=== PATIENT | female | born 1965 | race Caucasian/White ===

== ENCOUNTER 2018-11-16 19:14 | Emergency (ER) | payer MEDICAID ==
[~2018-11-16] VITALS: Ht 152.4 cm; Wt 76.7 kg
--- NOTE | 2018-11-16 19:30 | NUR ---
PT [facility]NA [facility] FOR [facility]. PER EMS PA WAS ON SCENE FOR TRANSPORT BACK TO [facility], CALLED 911 D/T AGITATION. PER EMS, BASELINE BEHAVIOR. PT IN BED 10. WILL CONTINUE TO MONITOR.
--- NOTE | 2018-11-16 19:59 | NUR ---
SPOKE WITH MELLISA FROM [facility] STATED PT HEARS VOICES AND HAS NOT BEEN COMBATIVE UNTIL TODAY.
[2018-11-16] MEDS ORDERED: HALOPERIDOL LACTATE INJ 5 MG/ML VIAL IM ONE ×2 (20:00→21:30)
[2018-11-16] MEDS ORDERED: diphenhydrAMINE HCL 50 MG/ML VIAL IM ONE ×2 (20:00→21:30)
--- NOTE | 2018-11-16 20:04 | NUR ---
PHLEB AT BEDSIDE FOR LAB DRAW
[2018-11-16] MEDS ORDERED: diphenhydrAMINE HCL 50 MG/ML VIAL ONE ×2 (20:07→21:31)
[2018-11-16] MEDS ORDERED: HALOPERIDOL LACTATE INJ 5 MG/ML VIAL ONE ×2 (20:07→21:31)
[2018-11-16 20:16] LABS: EOSINOPHILS % (AUTO) 4.1 % (0.0-6.0); HEMATOCRIT 35 % (33-45); HEMOGLOBIN 11.7 g/dL (11.5-14.8); LYMPHOCYTES # (AUTO) 1.5 /CMM (0.8-4.8); LYMPHOCYTES % (AUTO) 32.9 % (20.0-44.0); MEAN CORPUSCULAR HGB CONC 34 g/dl (31.0-36.0); MEAN CORPUSCULAR VOLUME 90 fL (82-100); MONOCYTES # (AUTO) 0.6 /CMM (0.1-1.30); MONOCYTES % (AUTO) 13.4 % (2.0-12.0); NEUTROPHILS # (AUTO) 2.2 /CMM (1.8-8.9); NEUTROPHILS % (AUTO) 48.6 % (43.0-81.0); PLATELET COUNT (AUTO) 198 /CMM (150-450); RED BLOOD CELL COUNT(AUTO) 3.87 MIL/uL (4.0-5.2); WHITE BLOOD COUNT (AUTO) 4.6 K/uL (4.3-11.0)
[2018-11-16 20:21] LABS: CALCIUM, SERUM 8.7 mg/dL (8.5-10.1); CARBON DIOXIDE 33 mmol/L (21-32); CHLORIDE 100 mmol/L (98-107); CREATININE 3.4 mg/dL (0.6-1.3); GLUCOSE 130 mg/dL (74-106); POTASSIUM 3.3 mmol/L (3.5-5.1); SODIUM SERUM 136 mmol/L (136-145); UREA NITROGEN, BLOOD 17 mg/dL (7-18)
[2018-11-16 20:26] LABS: ACETAMINOPHEN 0 ug/ml (10-30); ALANINE AMINOTRANSFERASE 9 U/L (12-78); ALBUMIN 2.9 g/dL (3.4-5.0); ALCOHOL, BLOOD < 3 mg/dL (0-0); ALKALINE PHOSPHATASE 106 U/L (46-116); ASPARTATE AMINOTRANSFERASE 10 U/L (15-37); BILIRUBIN,DIRECT 0.1 mg/dL (0.0-0.2); BILIRUBIN,TOTAL 0.4 mg/dL (0.2-1.0); SALICYLATE 1.4 mg/dL (2.8-20.0); TOTAL PROTEIN, SERUM 7.7 g/dL (6.4-8.2)
--- NOTE | 2018-11-16 20:45 | NUR ---
PT TAKEN TO RADIOLOGY VIA [facility]
[2018-11-16] MEDS ORDERED: LORAZEPAM INJ 2 MG/ML VIAL IM ONE (21:30)
[2018-11-16] MEDS ORDERED: LORAZEPAM INJ 2 MG/ML VIAL ONE (21:31)
--- NOTE | 2018-11-16 23:13 | NUR ---
PT ON DIALYSIS AND UNABLE TO MAKE URINE. AWARE.
[2018-11-17 00:10] VITALS: BP 147/59
--- NOTE | 2018-11-17 00:36 | NUR ---
PT PICKED UP BY EMS. PT STABLE. REPORT GIVEN TO EMS FOR TRANSPORT.
== END 2018-11-17 01:00 ==
LOC: ER 19:19
DX: E11.22 Type 2 diabetes mellitus with diabetic chronic kidney disease (principal); I12.0 Hypertensive chronic kidney disease with stage 5 chronic kidney disease or end stage renal disease; N18.6 End stage renal disease; D64.9 Anemia, unspecified; F32.9 Major depressive disorder, single episode, unspecified; F41.9 Anxiety disorder, unspecified; Z89.512 Acquired absence of left leg below knee; Z99.2 Dependence on renal dialysis; Z89.511 Acquired absence of right leg below knee
CPT/HCPCS: 36415; 70450; 80048; 80076; 80329; 85025; 96372 ×2; 99285; A4606; G0480 ×2; J1200 ×2; J1630 ×2; J2060; Z7610

== ENCOUNTER 2020-01-31 18:10 | Inpatient (IN) | payer MEDICAID ==
[~2020-01-31] VITALS: Ht 152.4 cm; Wt 59.0 kg
[2020-01-31] MEDS ORDERED: ASPI-1169 PO (18:43)
[2020-01-31] MEDS ORDERED: POLY17PO4 PO (18:43)
[2020-01-31] MEDS ORDERED: IPRA0.2S9 IH (18:43)
[2020-01-31] MEDS ORDERED: FAMO20TA8 PO (18:43)
[2020-01-31] MEDS ORDERED: LEVA0.6320 IH (18:43)
[2020-01-31] MEDS ORDERED: SENN-261 PO (18:43)
[2020-01-31] MEDS ORDERED: FOLI0.4T2 PO (18:43)
[2020-01-31] MEDS ORDERED: ONDA4TAB5 PO (18:43)
[2020-01-31] MEDS ORDERED: LACT10SO PO (18:43)
[2020-01-31] MEDS ORDERED: CALC667T2 PO (18:43)
[2020-01-31] MEDS ORDERED: ACID1TAB12 PO (18:43)
[2020-01-31] MEDS ORDERED: MULT-24 PO (18:43)
[2020-01-31] MEDS ORDERED: RIVA10TA PO (18:43)
[2020-01-31] MEDS ORDERED: ACET-2605 PO (18:43)
[2020-01-31] MEDS ORDERED: ESCI5TAB PO (18:43)
[2020-01-31] MEDS ORDERED: GABA-534 PO (18:43)
[2020-01-31] MEDS ORDERED: ASCO-352 PO (18:43)
[2020-01-31] MEDS ORDERED: MIDO10TA PO (18:43)
[2020-01-31] MEDS ORDERED: INSU100V11 SQ (18:43)
[2020-01-31] MEDS ORDERED: CLON0.1T PO (18:43)
[2020-01-31] MEDS ORDERED: BENZ1TAB7 PO (18:43)
[2020-01-31] MEDS ORDERED: DIPH25CA83 PO (18:43)
[2020-01-31] MEDS ORDERED: CARB15DR EACHEYE (18:43)
[2020-01-31] MEDS ORDERED: HALO0.5T PO (18:43)
[2020-01-31] MEDS ORDERED: ACET-868 PO (18:43)
[2020-01-31] MEDS ORDERED: AMLO5TAB4 PO (18:43)
[2020-01-31] MEDS ORDERED: MEROPENEM 1,000 MG in IV NS 0.9% 100 ML IV ONE (19:00)
[2020-01-31] MEDS ORDERED: VANCOMYCIN 1 GM in IV D5W 250 ML IV ONE (19:00)
--- NOTE | 2020-01-31 19:30 | NUR ---
ani, from [facility], sent by PMD to r/o [facility] Dx [facility] 2 days ago, BS 114, altered. DIALYSIS SHUNT PRESENT AT LEFT ARM. COLOSTOMY BAG PRESENT. ABOVE THE KNEE AMPUTATION OF LOWER EXTREMITIES. PT IS SLOVENIAN-SPEAKING ONLY. NO ACUTE DISTRESS NOTED. RR EVEN AND UNLABORED ON 3L VIA NC. ON MONITOR AND READY FOR EVAL.
[2020-01-31 20:04] LABS: EOSINOPHILS % (AUTO) 1.3 % (0.0-6.0); HEMATOCRIT 30 % (33-45); HEMOGLOBIN 9.4 g/dL (11.5-14.8); LYMPHOCYTES # (AUTO) 1.3 /CMM (0.8-4.8); LYMPHOCYTES % (AUTO) 27.9 % (20.0-44.0); MEAN CORPUSCULAR HGB CONC 32 g/dl (31.0-36.0); MEAN CORPUSCULAR VOLUME 96 fL (82-100); MONOCYTES # (AUTO) 0.3 /CMM (0.1-1.30); MONOCYTES % (AUTO) 6.6 % (2.0-12.0); NEUTROPHILS # (AUTO) 2.9 /CMM (1.8-8.9); NEUTROPHILS % (AUTO) 63.2 % (43.0-81.0); PLATELET COUNT (AUTO) 220 /CMM (150-450); RED BLOOD CELL COUNT(AUTO) 3.12 MIL/uL (4.0-5.2); WHITE BLOOD COUNT (AUTO) 4.6 K/uL (4.3-11.0)
--- NOTE | 2020-01-31 20:10 | NUR ---
PLACED STRAIGHT CATH PER PROTOCOL PER ORDER. NO OUTPUT. WILL LEAVE AND RECHECK
--- NOTE | 2020-01-31 20:13 | NUR ---
IV LINE ESTABLISHED, BLOOD DRAWN AND SENT TO STAT LAB. PT BECOMES AGGRAVATED DURING IV LINE INSERTION AND REQUIRES 2 PEOPLE TO HOLD HER. COMPLETED WITHOUT INCIDENT.
[2020-01-31 20:17] LABS: ALBUMIN 2.9 g/dL (3.4-5.0); BILIRUBIN,DIRECT 0.2 mg/dL (0.0-0.2); BILIRUBIN,TOTAL 0.7 mg/dL (0.2-1.0); POTASSIUM 4.5 mmol/L (3.5-5.1); TOTAL PROTEIN, SERUM 9.4 g/dL (6.4-8.2)
[2020-01-31 20:19] LABS: CREATININE 8.1 mg/dL (0.6-1.3)
[2020-01-31] MEDS ORDERED: VANCOMYCIN 1 GM VIAL ONE (21:52)
[2020-01-31] MEDS: MEROPENEM 1,000 MG in IV NS 0.9% 100 ML IV ONE (22:20)
[2020-01-31] MEDS: Calcium Gluconate 1GM/10ML 4.65 MEQ in IV NS 0.9% 100 ML IV ONE (22:50)
[2020-01-31] MEDS: VANCOMYCIN 1 GM in IV D5W 250 ML IV ONE (22:50)
--- NOTE | 2020-01-31 22:50 | NUR ---
MIDLINE PLACED BY PICC NURSE SMITHA. PT LAYTON WELL. WILL CONT TO MONITOR.
--- NOTE | 2020-01-31 23:30 | NUR ---
REPORT GIVEN TO BELEN VELOZ FOR LOIDA 101-T
--- NOTE | 2020-01-31 23:31 | NUR ---
Received report from Huma in ER.
--- NOTE | 2020-01-31 23:36 | NUR ---
SPOKE WITH DAUGHTER TO GIVE UPDATE. DTR REQUESTS TO BE CONTACTED FOR ANY ISSUES.
--- NOTE | 2020-01-31 23:51 | NUR ---
PT TRANSFERRED TO UNIT [facility]IA [facility]
[2020-01-31 23:55] VITALS: BP 141/31
--- NOTE | 2020-01-31 23:55 | NUR ---
RN NOTE: Pt transferred to unit via gurney accompanied by nurse and emt. Transferred to bed, pictures taken, changed and ensured pt comfortable. Pt A&Ox1, confused, Hong Konger speaking only. On isolation for R/O Covid. On room air, tolerating well. No respiratory distress noted. On tele monitor showing A-fib. Pt has left chest wall pacemaker and left arm dialysis shunt. Has colostomy. Has bilateral AKA. Has IV site on right wrist #20 and right basilic midline #18. Both lines patent and flushing. Dressings c/d/i. Vital signs: BP 141/31, P 51, RR 18, O2 96% RA, T 97.4 axillary. Bed in lowest and locked position, side rails up x2, call light within reach. Will continue to monitor.
[2020-02-01] MEDS ORDERED: AZITHROMYCIN 500 MG in IV D5W 250 ML IV SCH (00:30)
[2020-02-01] MEDS ORDERED: Z GUARD REMEDY 2 OZ OINT TP PRN (00:30)
[2020-02-01] MEDS ORDERED: ONDANSETRON HCL/PF 4 MG/2 ML VIAL IVP PRN (00:30)
[2020-02-01] MEDS ORDERED: ACETAMINOPHEN 325 MG TABLET PO PRN ×2 (00:30)
[2020-02-01] MEDS ORDERED: CLONIDINE HCL 0.1 MG TABLET PO PRN (00:30)
[2020-02-01] MEDS ORDERED: ALBUTEROL SULFATE 8 GM HFA.AER.AD IH PRN (00:30)
[2020-02-01] MEDS ORDERED: IPRATROPIUM NEB FS 0.5 MG/2.5 ML AMPUL.NEB IH PRN (00:30)
[2020-02-01] MEDS: POLYVINYL ALCOHOL 15 ML BOTTLE EACHEYE SCH ×5 (01:00→20:41)
[2020-02-01] MEDS ORDERED: CEFTRIAXONE 1 G VIAL ONE (01:06)
[2020-02-01] MEDS: CEFTRIAXONE 1 G in IV D5W 50 ML IV SCH (01:08)
[2020-02-01] MEDS ORDERED: AZITHROMYCIN 500 MG VIAL ONE (01:17)
[2020-02-01 03:27] LABS: C-REACTIVE PROTEIN 27.9 mg/dL (0.0-0.9)
[2020-02-01 04:00] VITALS: BP 97/56
--- NOTE | 2020-02-01 06:48 | NUR ---
RN CLOSING NOTE: Pt resting in bed, A&Ox1 Israeli speaking. On isolation for r/o Covid. On 2L/min NC tolerating well. No respiratory distress noted. No acute changes noted during shift. On tele monitor showing A-fib. Has pacemaker on left chest wall. Colostomy intact and emptied. Has dialysis shunt on left arm. IV site on right wrist #20 and right basilic midline #18 patent and flushed. Dressings c/d/i. All meds administered as ordered. Pt kept clean and dry. Pt yelling for Harriet throughout shift. Frequent reorientation provided. Safety measures in place. Bed in lowest and locked position, side rails up x2, call light within reach. Will endorse to AM nurse for MAYCOL.
--- NOTE | 2020-02-01 07:10 | NUR ---
RN opening note: Received pt. resting in bed, awake and confused. Surinamese speaking only. On isolation for r/o Covid. On 2L/min NC tolerating well. No respiratory distress noted. On tele monitor showing junctional bradycardia. Has pacemaker on left chest wall. Colostomy intact and area clean. Has dialysis shunt on left arm. IV site on right wrist #20 and right basilic midline #18 patent and flushed. Dressings c/d/i. No pain noted on patient. Call light in reach. Bed locked, low and at semi-tariq's position. Safety ensured and observed. Will continue to monitor.
[2020-02-01 08:00] VITALS: BP_SYST 104; BP_DIAS 31; BP_DIAS 58
[2020-02-01] MEDS: CALCIUM ACETATE 667 MG TABLET PO SCH ×3 (08:00→18:09)
[2020-02-01] MEDS: FAMOTIDINE (20 MG) 20 MG TABLET PO SCH (08:00)
[2020-02-01] MEDS: FOLIC ACID 1 MG TABLET PO SCH (09:08)
[2020-02-01] MEDS: SENNOSIDES 8.6 MG TABLET PO SCH ×2 (09:08→16:06)
[2020-02-01] MEDS: ASCORBIC ACID 500 MG TABLET PO SCH (09:08)
[2020-02-01] MEDS: ASPIRIN 81 MG TAB.CHEW PO SCH (09:08)
[2020-02-01] MEDS: ESCITALOPRAM OXALATE (10 MG) 10 MG TABLET PO SCH (09:08)
[2020-02-01] MEDS: HALOPERIDOL 1 MG TABLET PO SCH ×2 (09:09→20:07)
[2020-02-01] MEDS: BENZTROPINE MESYLATE (1 MG) 1 MG TABLET PO SCH (09:09)
[2020-02-01] MEDS: GABAPENTIN 300 MG CAPSULE PO SCH (09:09)
[2020-02-01] MEDS: ACIDOPHILUS/BULGARICUS 1 EACH TAB.CHEW PO SCH (09:09)
[2020-02-01] MEDS: MULTIVITAMINS,THERAGRAN 1 UDTAB TABLET PO SCH (09:09)
[2020-02-01] MEDS: RIVAROXABAN 10 MG TABLET PO SCH (09:44)
[2020-02-01 09:48] LABS: THYROID STIMULATING HORMONE 0.556 uIU/mL (0.358-3.74)
[2020-02-01 12:00] VITALS: BP_SYST 104; BP_SYST 105; BP_SYST 110; BP_DIAS 43; BP_DIAS 50; BP_DIAS 58
[2020-02-01] MEDS ORDERED: IPRATROPIUM BROMIDE 14 GM INHALER (or 12.9 GM) IH PRN (13:00)
[2020-02-01 16:00] VITALS: BP 98/56
--- NOTE | 2020-02-01 18:35 | NUR ---
RN closing note: Patient resting in bed, awake and confused. Malawian speaking only. On isolation for r/o Covid, results still pending. On 2L/min NC tolerating well. No respiratory distress noted. On tele monitor showing junctional bradycardia and sinus rhythm noted on shift. Has pacemaker on left chest wall. Colostomy intact and area clean. Has dialysis shunt on left arm, dialysis done. No output noted, cleaned only. IV site on right wrist #20 and right basilic midline #18 patent and flushed. Dressings c/d/i. No pain noted on patient. Call light in reach. Bed locked, low and at semi-tariq's position. Safety ensured and observed. Patient with continuos episodes of asking for phone noted. Agitated behavior is sometimes observed. Frequent reorientation of done in sammarinese with the help of qualified staff. Patient's personal phone at bedside, however battery is empty as she did not come with her filler mixer. Explanation given and room telephone made available for patient to make calls and receive calls but patient continues to refuse attempts of explanation. Percent of meals consumed; Breakfast: 25%, Lunch: 50%, Dinner: Refused. Will endorse to oncoming shift for MAYCOL.
--- NOTE | 2020-02-01 19:10 | NUR ---
RN NOTE RECEIVED PATIENT IN BED, RESTING WITH HOB ELEVATED. A&O X1, CONFUSED. ON O2 2L VIA NC. VERBALLY RESPONSIVE, KAZAKH SPEAKING ONLY. UNCOOPERATIVE. HD CATH ON LEFT UPPER ARM. IV SITES OF RIGHT WRIST AND RIGHT ARM, PATENT. PATIENT IS AKA. BILATERAL STUMPS CLEAN AND DRY. PATIENT HAS OSTOMY ON LEFT LOWER ABDOMEN. STOOL IS BROWN/YELLOW IN COLOR, LIQUID CONSISTENCY. CALL LIGHT IS WITHIN EASY REACH. WILL CONTINUE TO MONITOR.
[2020-02-01 20:00] VITALS: BP 150/73
[2020-02-01] MEDS ORDERED: AZITHROMYCIN 250 MG TABLET PO SCH (21:00)
[2020-02-01] MEDS: AMLODIPINE BESYLATE 5 MG TABLET PO SCH (21:27)
[2020-02-02] VITALS: BP 126/50
[2020-02-02] MEDS: CEFTRIAXONE 1 G in IV D5W 50 ML IV SCH (00:19)
[2020-02-02 04:00] VITALS: BP 142/53
--- NOTE | 2020-02-02 06:54 | NUR ---
RN NOTE PATIENT REMAINED STABLE THROUGHOUT THE NIGHT. NO SIGNIFICANT CHANGES NOTED. ALL DUE MEDS GIVEN ORDERED AND TOLERATED WELL. PATIENT WAS KEPT CLEAN, DRY, AND COMFORTABLE. WILL ENDORSE TO AM SHIFT RN FOR CONTINUATION OF CARE.
[2020-02-02 07:12] LABS: BASOPHILS % (AUTO) 0.8 % (0.0-2.0); EOSINOPHILS % (AUTO) 2.1 % (0.0-6.0); HEMATOCRIT 28 % (33-45); HEMOGLOBIN 8.8 g/dL (11.5-14.8); LYMPHOCYTES # (AUTO) 0.8 /CMM (0.8-4.8); LYMPHOCYTES % (AUTO) 20.2 % (20.0-44.0); MEAN CORPUSCULAR HGB CONC 31 g/dl (31.0-36.0); MEAN CORPUSCULAR VOLUME 97 fL (82-100); MONOCYTES # (AUTO) 0.4 /CMM (0.1-1.30); MONOCYTES % (AUTO) 11.5 % (2.0-12.0); NEUTROPHILS # (AUTO) 2.5 /CMM (1.8-8.9); NEUTROPHILS % (AUTO) 65.4 % (43.0-81.0); PLATELET COUNT (AUTO) 199 /CMM (150-450); RED BLOOD CELL COUNT(AUTO) 2.94 MIL/uL (4.0-5.2); WHITE BLOOD COUNT (AUTO) 3.8 K/uL (4.3-11.0)
[2020-02-02 07:55] LABS: ALBUMIN 2.4 g/dL (3.4-5.0); BILIRUBIN,TOTAL 0.5 mg/dL (0.2-1.0); MAGNESIUM 2.3 mg/dL (1.8-2.4); PHOSPHORUS 4.6 mg/dL (2.5-4.9); POTASSIUM 4.9 mmol/L (3.5-5.1); TOTAL PROTEIN, SERUM 7.8 g/dL (6.4-8.2)
[2020-02-02 08:00] VITALS: BP 98/60
--- NOTE | 2020-02-02 08:00 | NUR ---
RN OPENING NOTE RECEIVED PT IN BED AWAKE, ALERT AND ORIENTED X1. THAI SPEAKING ONLY. NO CARDIAC OR RESP DISTRESS NOTED. ON TELE MONITOR SHOWING SINUS BRADYCARDIA WITH AFIB, NOTED HR OF 63. NO SOB NOTED. BREATHING EVEN AND UNLABORED. ON 2L OF O2 VIA NC SATURATING WELL. IV ACCESS NOTED ON R WRIST G20. AND R BASILIC MIDLINE G18. NO S/S OF INFECTION OR INFILTRATION NOTED. IV ACCESS INTACT AND PATENT AND FLUSHING WELL. HEMODIALYSIS CATH NOTED ON L ARM. NO BLEEDING NOTED. + FOR BRUIT AND THRILL. PT NOTED WITH ABOVE THE KNEE AMPUTATION STUMPS ARE CLEAN AND DRY. COLOSTOMY NOTED ON L LOWER ABD. NO S/S OF INFECTION NOTED ON STOMA SITE. SAFETY PRECAUTIONS IN PLACE. BED LOCKED AND IN LOW POSITION. SIDE RAILS UP. BED ALARM ON. WILL CONT TO MONITOR.
[2020-02-02] MEDS: SENNOSIDES 8.6 MG TABLET PO SCH ×2 (08:41→17:09)
[2020-02-02] MEDS: GABAPENTIN 300 MG CAPSULE PO SCH (08:41)
[2020-02-02] MEDS: FAMOTIDINE (20 MG) 20 MG TABLET PO SCH (08:41)
[2020-02-02] MEDS: BENZTROPINE MESYLATE (1 MG) 1 MG TABLET PO SCH (08:42)
[2020-02-02] MEDS: HALOPERIDOL 1 MG TABLET PO SCH ×2 (08:42→20:16)
[2020-02-02] MEDS: ASPIRIN 81 MG TAB.CHEW PO SCH (08:42)
[2020-02-02] MEDS: ASCORBIC ACID 500 MG TABLET PO SCH (08:42)
[2020-02-02] MEDS: ACIDOPHILUS/BULGARICUS 1 EACH TAB.CHEW PO SCH (08:42)
[2020-02-02] MEDS: ESCITALOPRAM OXALATE (10 MG) 10 MG TABLET PO SCH (08:43)
[2020-02-02] MEDS: MULTIVITAMINS,THERAGRAN 1 UDTAB TABLET PO SCH (08:43)
[2020-02-02] MEDS: FOLIC ACID 1 MG TABLET PO SCH (08:43)
[2020-02-02] MEDS: CALCIUM ACETATE 667 MG TABLET PO SCH ×3 (08:46→17:08)
[2020-02-02] MEDS: POLYVINYL ALCOHOL 15 ML BOTTLE EACHEYE SCH ×4 (08:47→20:17)
[2020-02-02] MEDS: RIVAROXABAN 10 MG TABLET PO SCH (08:48)
[2020-02-02 09:24] LABS: THYROID STIMULATING HORMONE 0.518 uIU/mL (0.358-3.74)
--- NOTE | 2020-02-02 10:45 | NUR ---
COVID POSITIVE DR ARRIAZA MADE AWARE OF COVID POSITIVE RESULTS. PER DR ARRIAZA TO LET SANDOVAL FROM INFECTIOUS DISEASE KNOW
--- NOTE | 2020-02-02 11:00 | NUR ---
SANDOVAL NICK TRAINS SERVICE CONDUCTOR MADE AWARE OF COVID RESULTS FOR PT. NO ORDERS GIVEN AT THIS TIME.
[2020-02-02 12:00] VITALS: BP 101/72
[2020-02-02 16:00] VITALS: BP 111/72
--- NOTE | 2020-02-02 18:00 | NUR ---
TEMP CHECK PT AFEBRILE THROUGHOUT THE SHIFT. TEMP NOTED TO BE AT 98.3. NO COUGHING OR CONGESTION NOTED. STABLE O2 SAT ON 2L OF O2 AT 98%.
--- NOTE | 2020-02-02 18:30 | NUR ---
SEEN BY SANDOVAL WEB PRESS OPERATOR ASSISTANT PT WAS SEEN BY SANDOVAL (ID) TODAY.
--- NOTE | 2020-02-02 19:20 | NUR ---
RN NOTE RECEIVED PATIENT IN BED. DX OF POSITIVE COVID-19. A&O X1, CONFUSED. ON O2 2L VIA NC. VERBALLY RESPONSIVE, ARABIC SPEAKING ONLY. HD CATH ON LEFT UPPER ARM. IV SITES OF RIGHT WRIST AND RIGHT ARM, PATENT. PATIENT IS AKA. BILATERAL STUMPS CLEAN AND DRY. PATIENT HAS OSTOMY ON LEFT LOWER ABDOMEN. CALL LIGHT IS WITHIN EASY REACH. WILL CONTINUE TO MONITOR.
--- NOTE | 2020-02-02 19:29 | NUR ---
RN CLOSING NOTE PT IN BED AWAKE, ALERT AND ORIENTED X1. CITIZEN OF [place] SPEAKING ONLY. NO CARDIAC OR RESP DISTRESS NOTED. ON TELE MONITOR SHOWING SINUS BRADYCARDIA WITH AFIB. BREATHING EVEN AND UNLABORED. ON 2L OF O2 VIA NC SATURATING WELL AT 98%. IV ACCESS NOTED ON R WRIST G20. AND R BASILIC MIDLINE G18. NO S/S OF INFECTION OR INFILTRATION NOTED. IV ACCESS INTACT AND PATENT AND FLUSHING WELL. HEMODIALYSIS CATH NOTED ON L ARM. NO BLEEDING NOTED. + FOR BRUIT AND THRILL. COLOSTOMY NOTED ON L LOWER ABD. NO S/S OF INFECTION NOTED ON STOMA SITE. COLOSTOMY DRESSING CHANGED. INTACT. KEPT CLEAN AND DRY. SAFETY PRECAUTIONS IN PLACE. BED LOCKED AND IN LOW POSITION. SIDE RAILS UP. BED ALARM ON. WILL ENDORSE TO NEXT SHIFT
[2020-02-02] MEDS ORDERED: HYDROXYCHLOROQUINE 200 MG TABLET PO SCH ×2 (19:30→19:33)
[2020-02-02 20:00] VITALS: BP_SYST 129; BP_DIAS 39; BP_DIAS 59
[2020-02-02] MEDS: HYDROXYCHLOROQUINE 200 MG TABLET PO SCH (20:16)
[2020-02-02] MEDS: ACETAMINOPHEN ES 500 MG TABLET PO PRN (21:11)
[2020-02-02] MEDS: AMLODIPINE BESYLATE 5 MG TABLET PO SCH (21:11)
[2020-02-03] VITALS: BP 98/43
[2020-02-03 04:00] VITALS: BP 102/56
--- NOTE | 2020-02-03 07:00 | NUR ---
ENVIRONMENTAL SERVICES COORDINATOR PATIENT RECIVED IN BED. A/O X1 CONFUSED. ON O2 2L VIA NC. RESPONSIVE IN SWEDISH SPEAKING ONLY. HD CATH LEFT UPPERA . IV SITE OF RIGHT WRIST AND RIGHT ARM. PATIENT AKA BILATERAL STUMPS CLEAN AND DRY. OSTOMEY LOWER LEFT ABDOMEN. BED LOCKED AND LOWEST POSITION CALL LIGHT WITH IN REACH ALL SAFETY MEASURE IMPLENTED PER HOSPITAL POLICY. 2 X SIDE RAILS UP
--- NOTE | 2020-02-03 07:05 | NUR ---
RN NOTE PATIENT REMAINED STABLE THROUGHOUT THE NIGHT. COVID POSITIVE. ALL DUE MEDS GIVEN ORDERED AND TOLERATED WELL. PATIENT WAS KEPT CLEAN, DRY, AND COMFORTABLE. WILL ENDORSE TO AM SHIFT RN FOR CONTINUATION OF CARE.
[2020-02-03 07:43] LABS: BASOPHILS % (AUTO) 0.9 % (0.0-2.0); EOSINOPHILS % (AUTO) 2.4 % (0.0-6.0); HEMATOCRIT 25 % (33-45); HEMOGLOBIN 8.1 g/dL (11.5-14.8); LYMPHOCYTES # (AUTO) 1.1 /CMM (0.8-4.8); LYMPHOCYTES % (AUTO) 29.1 % (20.0-44.0); MEAN CORPUSCULAR HGB CONC 32 g/dl (31.0-36.0); MEAN CORPUSCULAR VOLUME 93 fL (82-100); MONOCYTES # (AUTO) 0.4 /CMM (0.1-1.30); MONOCYTES % (AUTO) 9.6 % (2.0-12.0); NEUTROPHILS # (AUTO) 2.2 /CMM (1.8-8.9); PLATELET COUNT (AUTO) 190 /CMM (150-450); RED BLOOD CELL COUNT(AUTO) 2.72 MIL/uL (4.0-5.2); WHITE BLOOD COUNT (AUTO) 3.7 K/uL (4.3-11.0)
[2020-02-03 07:50] LABS: CALCIUM, SERUM 7.4 mg/dL (8.5-10.1); MAGNESIUM 2.2 mg/dL (1.8-2.4); PHOSPHORUS 3.8 mg/dL (2.5-4.9); POTASSIUM 4.6 mmol/L (3.5-5.1)
[2020-02-03 07:52] LABS: CREATININE 9.2 mg/dL (0.6-1.3)
[2020-02-03 08:00] VITALS: BP 125/65
[2020-02-03] MEDS: CALCIUM ACETATE 667 MG TABLET PO SCH ×3 (09:43→17:05)
[2020-02-03] MEDS: ESCITALOPRAM OXALATE (10 MG) 10 MG TABLET PO SCH (09:44)
[2020-02-03] MEDS: ACIDOPHILUS/BULGARICUS 1 EACH TAB.CHEW PO SCH (09:44)
[2020-02-03] MEDS: SENNOSIDES 8.6 MG TABLET PO SCH ×2 (09:44→17:05)
[2020-02-03] MEDS: ASPIRIN 81 MG TAB.CHEW PO SCH (09:44)
[2020-02-03] MEDS: FOLIC ACID 1 MG TABLET PO SCH (09:44)
[2020-02-03] MEDS: FAMOTIDINE (20 MG) 20 MG TABLET PO SCH (09:44)
[2020-02-03] MEDS: HALOPERIDOL 1 MG TABLET PO SCH ×2 (09:45→20:24)
[2020-02-03] MEDS: ASCORBIC ACID 500 MG TABLET PO SCH (09:45)
[2020-02-03] MEDS: MULTIVITAMINS,THERAGRAN 1 UDTAB TABLET PO SCH (09:45)
[2020-02-03] MEDS: HYDROXYCHLOROQUINE 200 MG TABLET PO SCH ×2 (09:45→20:24)
[2020-02-03] MEDS: GABAPENTIN 300 MG CAPSULE PO SCH (09:45)
[2020-02-03] MEDS: BENZTROPINE MESYLATE (1 MG) 1 MG TABLET PO SCH (09:45)
[2020-02-03] MEDS: RIVAROXABAN 10 MG TABLET PO SCH (09:46)
[2020-02-03] MEDS: POLYVINYL ALCOHOL 15 ML BOTTLE EACHEYE SCH ×4 (09:47→20:55)
[2020-02-03 12:00] VITALS: BP 104/42
[2020-02-03 16:00] VITALS: BP_SYST 111; BP_SYST 115; BP_DIAS 40; BP_DIAS 54
[2020-02-03] MEDS ORDERED: AZITHROMYCIN 250 MG TABLET PO SCH (18:30)
--- NOTE | 2020-02-03 18:52 | NUR ---
FAMILY LAW LEGAL ASSISTANT CLOSING PATIENT IN STABLE CONDITION AT THIS TIME. NO ACUTE DISTRESS. TURN AND REPOSITION Q2H. BED LOCKED LOWEST POSITION CALL LIGHT WITH IN REACH ALL SAFETY MEASURE IMPLEMENTED PER HOSPITAL POLICY. ENDORSED TO ON COMING SHIFT
--- NOTE | 2020-02-03 19:05 | NUR ---
CLINICIAN ONCOLOGY opening note: Received pt. resting in bed, awake and confused. Cameroonian speaking only. On isolation for r/o Covid. On 2L/min NC tolerating well. No respiratory distress noted. On tele monitor showing junctional bradycardia. Has pacemaker on left chest wall. Colostomy bag intact and area clean. Has dialysis shunt on left arm. IV site on right wrist #20 and right basilic midline #18 patent and flushed. Dressings c/d/i. No pain noted on patient. Call light in reach. Bed locked, low and at semi-tariq's position. Safety ensured and observed. Will continue to monitor.
[2020-02-03 20:00] VITALS: BP 129/41
[2020-02-03] MEDS: AMLODIPINE BESYLATE 5 MG TABLET PO SCH (21:25)
[2020-02-04] VITALS (7 sets, daily range): BP systolic 92–129; BP diastolic 41–65
--- NOTE | 2020-02-04 06:58 | NUR ---
RN CLOSING NOTES PT IS SLEEPING NO SIGN AND SYMPTOMS OF RESPIRATORY DISTRESS 02 SAT 100% VIA RA, NO SIGNIFICANT CHANGES ON CONDITION NOTED STILL ON TELE WITH READING FUNCTIONAL NATALIE 50'S, COLOSTOMY BAG EMPTIED, DROPLET ISOLATION MAINTAINED AND OBSERVED COVID 19 (+) SAFETY MEASURE MAINTAINED, BED ON LOWEST POSITION AND LOCKED CALL LIGHT WITHIN REACH, SIDE RAILS UP X3 ALL NEEDS ATTENDED WILL ENDORSED TO AM SHIFT RN
[2020-02-04 07:01] LABS: BASOPHILS % (AUTO) 1.1 % (0.0-2.0); EOSINOPHILS % (AUTO) 5.2 % (0.0-6.0); HEMATOCRIT 28 % (33-45); HEMOGLOBIN 8.8 g/dL (11.5-14.8); LYMPHOCYTES % (AUTO) 32.2 % (20.0-44.0); MEAN CORPUSCULAR HGB CONC 32 g/dl (31.0-36.0); MEAN CORPUSCULAR VOLUME 94 fL (82-100); MONOCYTES # (AUTO) 0.4 /CMM (0.1-1.30); MONOCYTES % (AUTO) 13.3 % (2.0-12.0); NEUTROPHILS # (AUTO) 1.5 /CMM (1.8-8.9); NEUTROPHILS % (AUTO) 48.2 % (43.0-81.0); PLATELET COUNT (AUTO) 203 /CMM (150-450); RED BLOOD CELL COUNT(AUTO) 2.96 MIL/uL (4.0-5.2); WHITE BLOOD COUNT (AUTO) 3.2 K/uL (4.3-11.0)
[2020-02-04 07:17] LABS: CALCIUM, SERUM 7.1 mg/dL (8.5-10.1); MAGNESIUM 2.3 mg/dL (1.8-2.4); PHOSPHORUS 4.7 mg/dL (2.5-4.9); POTASSIUM 5.2 mmol/L (3.5-5.1)
[2020-02-04 07:22] LABS: CREATININE 10.3 mg/dL (0.6-1.3)
--- NOTE | 2020-02-04 08:00 | NUR ---
LOOM DOFFER NOTE PATIENT RECEIVED IN BED. A/O X1 CONFUSED. ON O2 2L VIA NC. RESPONSIVE IN DANISH SPEAKING ONLY. HD CATH LEFT UPPER ARM . IV SITE OF RIGHT WRIST AND RIGHT ARM. PATIENT AKA BILATERAL STUMPS CLEAN AND DRY. OSTOMY LOWER LEFT ABDOMEN WITH SOFT AND LIQUID STOOL NOTED BED LOCKED AND LOWEST POSITION CALL LIGHT WITH IN REACH ALL SAFETY MEASURE IMPLANTED PER HOSPITAL POLICY. 2 X SIDE RAILS UP LT UPPER ARM WITH AV FISTULA WITH DRESSING IN PLACE, WILL CONT TO MONITOR
[2020-02-04] MEDS: SENNOSIDES 8.6 MG TABLET PO SCH ×2 (08:17→16:25)
[2020-02-04] MEDS: BENZTROPINE MESYLATE (1 MG) 1 MG TABLET PO SCH (08:19)
[2020-02-04] MEDS: HYDROXYCHLOROQUINE 200 MG TABLET PO SCH ×2 (08:19→20:02)
[2020-02-04] MEDS: FAMOTIDINE (20 MG) 20 MG TABLET PO SCH (08:19)
[2020-02-04] MEDS: ASCORBIC ACID 500 MG TABLET PO SCH (08:19)
[2020-02-04] MEDS: GABAPENTIN 300 MG CAPSULE PO SCH (08:19)
[2020-02-04] MEDS: ESCITALOPRAM OXALATE (10 MG) 10 MG TABLET PO SCH (08:19)
[2020-02-04] MEDS: FOLIC ACID 1 MG TABLET PO SCH (08:19)
[2020-02-04] MEDS: ACIDOPHILUS/BULGARICUS 1 EACH TAB.CHEW PO SCH (08:19)
[2020-02-04] MEDS: MULTIVITAMINS,THERAGRAN 1 UDTAB TABLET PO SCH (08:19)
[2020-02-04] MEDS: ASPIRIN 81 MG TAB.CHEW PO SCH (08:21)
[2020-02-04] MEDS: HALOPERIDOL 1 MG TABLET PO SCH ×2 (08:21→20:03)
[2020-02-04] MEDS: CALCIUM ACETATE 667 MG TABLET PO SCH ×3 (08:21→17:01)
[2020-02-04] MEDS: RIVAROXABAN 10 MG TABLET PO SCH (08:22)
[2020-02-04] MEDS: POLYVINYL ALCOHOL 15 ML BOTTLE EACHEYE SCH ×4 (09:34→20:02)
--- NOTE | 2020-02-04 11:30 | NUR ---
DIE SINKER APPRENTICE NOTE CHECK COLOSTOMY BAG , ABLE TO MAKE BM , 150 ML . ALL NEEDS ATTENDED WILL MONITOR,
--- NOTE | 2020-02-04 15:59 | NUR ---
HEMMING AND TACKING MACHINE OPERATOR NOTE ROUNDS MADE KEEP CLEAN DRY , TURN REPOSITION , NOT IN DISTRESS
--- NOTE | 2020-02-04 18:56 | NUR ---
CASTING TESTER NOTE FED BY NURSING STAFF, COLOSTOMY CARE DONE, TURN REPOSITION, WILL CONT TO MONITOR
--- NOTE | 2020-02-04 19:30 | NUR ---
RN NOTES, PATIENT SLEEPING BREATHING EVEN AND UNLABORED, NO SOB/ACUTE RESPIRATORY DISTRESS , 02 SAT 99-100% VIA NC 2 LPM, NS NATALIE AT TIMES, JUNCTIONAL, HR JUMPS FROM 40S TO 50S, COLOSTOMY BAG WITH SMALL AMOUNT OF STOOL AT THIS TIME, ON ISOLATION COVID 19 (+) SAFETY MEASURE MAINTAINED, BED LOCKED AND LOWEST POSITION, CALL LIGHT WITHIN REACH, SIDE RAILS UP X3 ALL NEEDS ATTENDED, WILL CONTINUE TO MONITOR CLOSELY,
[2020-02-04] MEDS: AMLODIPINE BESYLATE 5 MG TABLET PO SCH (21:36)
[2020-02-05] VITALS (8 sets, daily range): BP systolic 92–137; BP diastolic 36–48
--- NOTE | 2020-02-05 07:08 | NUR ---
RN CLOSING NOTES, PATIENT AWAKE AT THIS TIME, NO SOB/ACUTE RESPIRATORY DISTRESS , OO2 SAT 99-100% VIA NC 2 LPM, NS NATALIE AND JUNCTIONAL AT TIMES, HR JUMPS FROM 40S TO 50S, ON ISOLATION COVID 19 (+) SAFETY MEASURE MAINTAINED, BED LOCKED AND LOWEST POSITION, CALL LIGHT WITHIN REACH, SIDE RAILS UP X3 ALL NEEDS ATTENDED, NO SIGNIFICANT CHANGE IN CONDITION DURING THE NIGHT, WILL ENDORSE CONTINUITY OF CARE TO ONCOMING NURSE.
--- NOTE | 2020-02-05 07:30 | NUR ---
BILLING SUPERVISOR OPENING NOTE RECEIVED REPORT FROM [facility] SHIFT NURSE. PATIENT AWAKE IN BED, ALERT AND ORIENTED X 1, POLISH SPEAKING, ON 02 VIA NC 2L/MIN, SATURATING 99%, NO SIGNS OF RESPIRATORY DISTRESS NOTED, RESPIRATIONS EVEN AND UNLABORED. SINUS NATALIE ON TELE MONITOR HR 55. RIGHT UPPER ARM MIDLINE BUT NOT INTACT, LEAKING WITH NS FLUSH. CHARGE NURSE NOTIFIED, ADRIENNEMA NOTIFIED, NEW ORDER PLACED FOR NEW MIDLINE INSERTION. ON ISOLATION COVID 19 (+) SAFETY MEASURE MAINTAINED, BED LOCKED AND LOWEST POSITION, CALL LIGHT WITHIN REACH.
[2020-02-05] MEDS: SENNOSIDES 8.6 MG TABLET PO SCH ×2 (08:19→17:24)
[2020-02-05] MEDS: FAMOTIDINE (20 MG) 20 MG TABLET PO SCH (08:20)
[2020-02-05] MEDS: GABAPENTIN 300 MG CAPSULE PO SCH (08:20)
[2020-02-05] MEDS: ACIDOPHILUS/BULGARICUS 1 EACH TAB.CHEW PO SCH (08:20)
[2020-02-05] MEDS: ASCORBIC ACID 500 MG TABLET PO SCH (08:20)
[2020-02-05] MEDS: HALOPERIDOL 1 MG TABLET PO SCH ×2 (08:20→22:10)
[2020-02-05] MEDS: ESCITALOPRAM OXALATE (10 MG) 10 MG TABLET PO SCH (08:20)
[2020-02-05] MEDS: ASPIRIN 81 MG TAB.CHEW PO SCH (08:20)
[2020-02-05] MEDS: HYDROXYCHLOROQUINE 200 MG TABLET PO SCH ×2 (08:20→22:11)
[2020-02-05] MEDS: BENZTROPINE MESYLATE (1 MG) 1 MG TABLET PO SCH (08:20)
[2020-02-05] MEDS: CALCIUM ACETATE 667 MG TABLET PO SCH ×3 (08:20→17:24)
[2020-02-05] MEDS: MULTIVITAMINS,THERAGRAN 1 UDTAB TABLET PO SCH (08:20)
[2020-02-05] MEDS: FOLIC ACID 1 MG TABLET PO SCH (08:21)
[2020-02-05] MEDS: RIVAROXABAN 10 MG TABLET PO SCH (08:22)
[2020-02-05] MEDS: POLYVINYL ALCOHOL 15 ML BOTTLE EACHEYE SCH ×4 (09:15→22:11)
--- NOTE | 2020-02-05 18:17 | NUR ---
SOCIAL SCIENCE ANALYST CLOSING NOTE RECEIVED REPORT FROM [facility] SHIFT NURSE. PATIENT AWAKE IN BED, ALERT AND ORIENTED X 1, SWISS SPEAKING, ON 02 VIA NC 2L/MIN, SATURATING 99%, NO SIGNS OF RESPIRATORY DISTRESS NOTED, RESPIRATIONS EVEN AND UNLABORED. SINUS NATALIE ON TELE MONITOR HR 55. RIGHT UPPER ARM MIDLINE PENDING NEW INSERTION. PROVIDED SAFETY AND COMFORT TO PT THROUGHOUT SHIFT, ALL DUE MEDS GIVEN. ON ISOLATION COVID 19 (+) SAFETY MEASURE MAINTAINED, BED LOCKED AND LOWEST POSITION, CALL LIGHT WITHIN REACH. WILL ENDORSE TO [facility] SHIFT NURSE.
--- NOTE | 2020-02-05 20:00 | NUR ---
RN NOTES, PATIENT AWAKE AT THIS TIME, A/O X TO SELF, BREATHING EVEN AND UNLABORED, NO S/S OF SOB/ACUTE DISTRESS NOTED AT THIS TIME, ON 2LPM VIA NC WITH OPTIMAL O2 SAT LEVEL >98% NS NATALIE, AT TIMES, JUNCTIONAL, HR 50S AT THIS TIME, COLOSTOMY BAG WITH MINIMAL AMOUNT OF STOOL AT THIS TIME, ON ISOLATION COVID 19 (+) SAFETY MEASURE MAINTAINED, BED LOCKED AND LOWEST POSITION, CALL LIGHT WITHIN REACH, JUST HAD LIDA MIDLINE INSERTION 20G, PATIENT TOLERATED PROCEDURE WELL, IN SIDE RAILS UP X3 ALL NEEDS ATTENDED, WILL CONTINUE TO MONITOR CLOSELY.
--- NOTE | 2020-02-05 20:31 | NUR ---
RN NOTES, PATIENT STARTED HEMODIALYSIS AT THIS TIME, WITH INITIAL INITIAL VS 98.0, 50, 18, 100% ON 2LPM VIA NC, 136/46, WILL CONTINUE TO MONITOR CLOSELY.
[2020-02-05] MEDS: AMLODIPINE BESYLATE 5 MG TABLET PO SCH (22:00)
--- NOTE | 2020-02-05 22:10 | NUR ---
RN NOTES, HEMODIALYSIS DONE AT THIS TIME WITH 500ML OUT, PATIENT TOLERATED WELL, WITH VS, 107/34, 54, 98%, 18, WILL CONTINUE TO MONITOR CLOSELY.
[2020-02-05 23:16] LABS: BASOPHILS % (AUTO) 0.8 % (0.0-2.0); EOSINOPHILS % (AUTO) 7.7 % (0.0-6.0); HEMATOCRIT 27 % (33-45); HEMOGLOBIN 8.6 g/dL (11.5-14.8); LYMPHOCYTES # (AUTO) 1.3 /CMM (0.8-4.8); LYMPHOCYTES % (AUTO) 31.9 % (20.0-44.0); MEAN CORPUSCULAR HGB CONC 32 g/dl (31.0-36.0); MEAN CORPUSCULAR VOLUME 93 fL (82-100); MONOCYTES # (AUTO) 0.5 /CMM (0.1-1.30); NEUTROPHILS # (AUTO) 1.9 /CMM (1.8-8.9); NEUTROPHILS % (AUTO) 47.6 % (43.0-81.0); PLATELET COUNT (AUTO) 304 /CMM (150-450); RED BLOOD CELL COUNT(AUTO) 2.87 MIL/uL (4.0-5.2)
[2020-02-06] VITALS: BP 110/40
[2020-02-06 04:00] VITALS: BP 126/62
[2020-02-06 06:37] LABS: EOSINOPHILS % (AUTO) 9.6 % (0.0-6.0); HEMATOCRIT 31 % (33-45); HEMOGLOBIN 9.5 g/dL (11.5-14.8); LYMPHOCYTES # (AUTO) 0.9 /CMM (0.8-4.8); LYMPHOCYTES % (AUTO) 24.2 % (20.0-44.0); MEAN CORPUSCULAR HGB CONC 31 g/dl (31.0-36.0); MEAN CORPUSCULAR VOLUME 95 fL (82-100); MONOCYTES # (AUTO) 0.4 /CMM (0.1-1.30); MONOCYTES % (AUTO) 11.6 % (2.0-12.0); NEUTROPHILS # (AUTO) 1.9 /CMM (1.8-8.9); NEUTROPHILS % (AUTO) 53.6 % (43.0-81.0); PLATELET COUNT (AUTO) 269 /CMM (150-450); RED BLOOD CELL COUNT(AUTO) 3.21 MIL/uL (4.0-5.2); WHITE BLOOD COUNT (AUTO) 3.6 K/uL (4.3-11.0)
[2020-02-06 07:09] LABS: CALCIUM, SERUM 8.4 mg/dL (8.5-10.1); MAGNESIUM 2.4 mg/dL (1.8-2.4); PHOSPHORUS 4.5 mg/dL (2.5-4.9); POTASSIUM 5.6 mmol/L (3.5-5.1)
[2020-02-06 07:12] LABS: CREATININE 11.2 mg/dL (0.6-1.3)
--- NOTE | 2020-02-06 07:30 | NUR ---
CONCRETE MIXER TRUCK DRIVER OPENING NOTE RECEIVED REPORT FROM [facility] SHIFT NURSE. PATIENT AWAKE IN BED, ALERT AND ORIENTED X 1, [place] SPEAKING, ON 02 VIA NC 2L/MIN, SATURATING 99%, NO SIGNS OF RESPIRATORY DISTRESS NOTED, RESPIRATIONS EVEN AND UNLABORED. SINUS NATALIE ON TELE MONITOR HR 55. RIGHT UPPER ARM MIDLINE INTACT, PATENT. ON ISOLATION COVID 19 (+) SAFETY MEASURE MAINTAINED, BED LOCKED AND LOWEST POSITION, CALL LIGHT WITHIN REACH.
[2020-02-06 08:00] VITALS: BP_SYST 130; BP_SYST 139; BP_DIAS 33
[2020-02-06] MEDS: SENNOSIDES 8.6 MG TABLET PO SCH ×2 (08:34→16:27)
[2020-02-06] MEDS: MULTIVITAMINS,THERAGRAN 1 UDTAB TABLET PO SCH (08:34)
[2020-02-06] MEDS: HYDROXYCHLOROQUINE 200 MG TABLET PO SCH ×2 (08:34→21:43)
[2020-02-06] MEDS: ASCORBIC ACID 500 MG TABLET PO SCH (08:34)
[2020-02-06] MEDS: GABAPENTIN 300 MG CAPSULE PO SCH (08:34)
[2020-02-06] MEDS: HALOPERIDOL 1 MG TABLET PO SCH ×2 (08:35→21:43)
[2020-02-06] MEDS: ESCITALOPRAM OXALATE (10 MG) 10 MG TABLET PO SCH (08:35)
[2020-02-06] MEDS: POLYVINYL ALCOHOL 15 ML BOTTLE EACHEYE SCH ×4 (08:36→21:44)
[2020-02-06] MEDS: BENZTROPINE MESYLATE (1 MG) 1 MG TABLET PO SCH (08:36)
[2020-02-06] MEDS: ASPIRIN 81 MG TAB.CHEW PO SCH (08:36)
[2020-02-06] MEDS: FOLIC ACID 1 MG TABLET PO SCH (08:36)
[2020-02-06] MEDS: ACIDOPHILUS/BULGARICUS 1 EACH TAB.CHEW PO SCH (08:36)
[2020-02-06] MEDS: CALCIUM ACETATE 667 MG TABLET PO SCH ×3 (08:36→17:07)
[2020-02-06] MEDS: FAMOTIDINE (20 MG) 20 MG TABLET PO SCH (08:38)
[2020-02-06] MEDS: RIVAROXABAN 10 MG TABLET PO SCH (08:39)
[2020-02-06 12:00] VITALS: BP 99/54
[2020-02-06 16:00] VITALS: BP 134/44
--- NOTE | 2020-02-06 17:21 | NUR ---
REPEAT SWAB DONE FOR COVID TEST FROM RIGHT NARES. DROPPED SPECIMEN OFF TO LAB
--- NOTE | 2020-02-06 19:30 | NUR ---
RN NOTES, PATIENT ASLEEP AT THIS TIME, BREATHING EVEN AND UNLABORED, NO S/S OF SOB/ACUTE DISTRESS NOTED AT THIS TIME, ON 2LPM VIA NC WITH OPTIMAL O2 SAT LEVEL >97% NS NATALIE, AT TIMES, JUNCTIONAL, HR 50S AT THIS TIME, COLOSTOMY BAG IN PLACED, MODERATE AMOUNT OF STOOL NOTED, ON ISOLATION COVID 19 (+) SAFETY MEASURE MAINTAINED, BED LOCKED AND LOWEST POSITION, CALL LIGHT WITHIN REACH, LIDA MIDLINE IN PLACED PATENT AND INTACT, IN SIDE RAILS UP X3 ALL NEEDS ATTENDED, WILL CONTINUE TO MONITOR CLOSELY.
[2020-02-06 20:00] VITALS: BP 127/57
[2020-02-06] MEDS: AMLODIPINE BESYLATE 5 MG TABLET PO SCH (23:09)
[2020-02-07] VITALS: BP 110/49
[2020-02-07 04:00] VITALS: BP 140/62
--- NOTE | 2020-02-07 07:10 | NUR ---
RN CLOSING NOTES, PATIENT AWAKE AT THIS TIME, BREATHING EVEN AND UNLABORED, NO SOB/ NO SOB/ACUTE RESPIRATORY DISTRESS , O2 SAT 99-100% VIA NC 2 LPM, NS NATALIE AND JUNCTIONAL AT TIMES, ON ISOLATION COVID 19 (+) SAFETY MEASURE MAINTAINED, BED LOCKED AND LOWEST POSITION, CALL LIGHT WITHIN REACH, SIDE RAILS UP X3 ALL NEEDS ATTENDED, NO SIGNIFICANT CHANGE IN CONDITION DURING THE NIGHT, AWAITING FOR FOR COVID 19 SWAP RESULTS, WILL ENDORSE CONTINUITY OF CARE TO ONCOMING NURSE.
[2020-02-07 08:00] VITALS: BP 135/45
--- NOTE | 2020-02-07 08:00 | NUR ---
RN OPENING NOTE: RECEIVED PATIENT IN BED THIS MORNING. PATIENT IS ALERT X2, CONFUSED, MOHAWK SPEAKING. PATIENT IS ON O2 2L/MIN VIA NC, SATING WELL, NO SIGNS OF RESPIRATORY DISTRESS NOTED. NO SIGNS OF ACUTE DISTRESS NOTED. ON TELE MONITOR, SINUS NATALIE 56. PATIENT HAS MIDLINE AT LIDA, FLUSHING WELL, SITE C/D/I, NO SIGNS OF COMPLICATIONS NOTED. AV SHUNT ON LEFT ARM, BRUIT + THRILL NOTED, NO SIGNS OF COMPLICATIONS NOTED. PATIENT IS ON ISOLATION D/T + COVID 19 RESULTS. SAFETY MEASURES IMPLEMENTED, BED IN LOWEST POSITION, LOCKED, SIDE RAILS UP X2, CALL LIGHT WITHIN REACH. WILL CONTINUE TO MONITOR PATIENT FOR CHANGES.
--- NOTE | 2020-02-07 09:20 | NUR ---
PATIENT'S TELE MONITOR SHOWING VFIB HR 56. WENT TO ASSESS PATIENT. PATIENT IS ALERT, NO SIGNS OF DISTRESS NOTED. CONTACTED [facility] TO REACH DR SCHROEDER TO INFORM HIM OF FINDINGS. AWAITING CALL BACK. WILL CONTINUE TO MONITOR PATIENT FOR CHANGES. Addendum: 02/07/20 at 1102 by BENTLEY WILSON RN DR HERNANDEZ CAME IN AND SAW PATIENT, PRINTED OUT LEADS SHOWING V-FIB, PLACED IT IN CHART, NOTIFIED MD. VALDIVIA AT THIS TIME.
[2020-02-07] MEDS: FAMOTIDINE (20 MG) 20 MG TABLET PO SCH (09:43)
[2020-02-07] MEDS: RIVAROXABAN 10 MG TABLET PO SCH (10:24)
[2020-02-07] MEDS: HALOPERIDOL 1 MG TABLET PO SCH ×2 (10:25→20:47)
[2020-02-07] MEDS: SENNOSIDES 8.6 MG TABLET PO SCH ×2 (10:25→17:52)
[2020-02-07] MEDS: ACIDOPHILUS/BULGARICUS 1 EACH TAB.CHEW PO SCH (10:25)
[2020-02-07] MEDS: FOLIC ACID 1 MG TABLET PO SCH (10:25)
[2020-02-07] MEDS: ESCITALOPRAM OXALATE (10 MG) 10 MG TABLET PO SCH (10:25)
[2020-02-07] MEDS: ASCORBIC ACID 500 MG TABLET PO SCH (10:25)
[2020-02-07] MEDS: CALCIUM ACETATE 667 MG TABLET PO SCH ×3 (10:25→17:52)
[2020-02-07] MEDS: BENZTROPINE MESYLATE (1 MG) 1 MG TABLET PO SCH (10:26)
[2020-02-07] MEDS: GABAPENTIN 300 MG CAPSULE PO SCH (10:26)
[2020-02-07] MEDS: MULTIVITAMINS,THERAGRAN 1 UDTAB TABLET PO SCH (10:26)
[2020-02-07] MEDS: POLYVINYL ALCOHOL 15 ML BOTTLE EACHEYE SCH ×4 (10:26→21:00)
[2020-02-07] MEDS: HYDROXYCHLOROQUINE 200 MG TABLET PO SCH ×2 (10:26→20:47)
[2020-02-07] MEDS: ASPIRIN 81 MG TAB.CHEW PO SCH (10:26)
[2020-02-07 12:00] VITALS: BP 123/45
[2020-02-07 16:00] VITALS: BP_SYST 118; BP_SYST 55; BP_DIAS 45; BP_DIAS 55
--- NOTE | 2020-02-07 17:02 | NUR ---
INFORMED DR GARDNER PATIENT HAD VFIB TODAY WITH HR 59 Addendum: 02/07/20 at 1857 by BENTLEY WILSON RN DR MARKS ALSO AWARE
--- NOTE | 2020-02-07 18:55 | NUR ---
RN CLOSING NOTE: PATIENT REMAINS IN BED, NO SIGNS OF RESPIRATORY DISTRESS NOTED. NO SIGNS OF ACUTE DISTRESS NOTED. ON TELE MONITOR, SINUS NATALIE 55.PATIENT IS ON ISOLATION D/T + COVID 19 RESULTS. SAFETY MEASURES IMPLEMENTED, BED IN LOWEST POSITION, LOCKED, SIDE RAILS UP, CALL LIGHT WITHIN REACH. WILL ENDORSE TO ONCOMING SHIFT RN FOR CONTINUITY OF CARE.
--- NOTE | 2020-02-07 19:20 | NUR ---
RN OPENING NOTE PATIENT IN BED, NO S/S OF RESPIRATORY DISTRESS NOTED. ON TELE MONITOR, SINUS NATALIE 57. LIDA MIDLINE PATENT AND INTACT,PATIENT IS ON ISOLATION D/T + COVID 19 RESULTS. SAFETY MEASURES IMPLEMENTED, BED IN LOWEST POSITION SIDE RAILS UP X 2 CALL LIGHT WITHIN REACH. WILL CONTINUE TO MONITOR PT.
[2020-02-07 20:00] VITALS: BP 114/51
[2020-02-07] MEDS: AMLODIPINE BESYLATE 5 MG TABLET PO SCH (21:44)
[2020-02-08] VITALS: BP 140/35
[2020-02-08 04:00] VITALS: BP 145/33
--- NOTE | 2020-02-08 06:44 | NUR ---
RN CLOSING NOTE PATIENT AWAKE IN BED, NO S/S OF RESPIRATORY DISTRESS NOTED. ON TELE MONITOR, SINUS NATALIE 59. LIDA MIDLINE PATENT AND INTACT, PATIENT ON ISOLATION D/T + COVID 19 RESULTS, SECOND SWAB STILL PENDING SAFETY MEASURES IMPLEMENTED, BED IN LOWEST POSITION SIDE RAILS UP, CALL LIGHT WITHIN REACH. WILL ENDORSE TO AM NURSE FOR MAYCOL.
[2020-02-08 07:03] LABS: BASOPHILS # (AUTO) 0.1 /CMM (0.0-0.2); BASOPHILS % (AUTO) 1.3 % (0.0-2.0); EOSINOPHILS % (AUTO) 6.9 % (0.0-6.0); HEMATOCRIT 30 % (33-45); HEMOGLOBIN 9.4 g/dL (11.5-14.8); LYMPHOCYTES # (AUTO) 0.9 /CMM (0.8-4.8); MEAN CORPUSCULAR HGB CONC 31 g/dl (31.0-36.0); MEAN CORPUSCULAR VOLUME 93 fL (82-100); MONOCYTES # (AUTO) 0.5 /CMM (0.1-1.30); MONOCYTES % (AUTO) 13.2 % (2.0-12.0); NEUTROPHILS # (AUTO) 2.3 /CMM (1.8-8.9); NEUTROPHILS % (AUTO) 56.6 % (43.0-81.0); PLATELET COUNT (AUTO) 269 /CMM (150-450); RED BLOOD CELL COUNT(AUTO) 3.23 MIL/uL (4.0-5.2)
[2020-02-08 07:11] LABS: CALCIUM, SERUM 8.5 mg/dL (8.5-10.1); POTASSIUM 5.6 mmol/L (3.5-5.1)
[2020-02-08 07:46] LABS: CREATININE 10.3 mg/dL (0.6-1.3)
--- NOTE | 2020-02-08 07:50 | NUR ---
RN OPENING NOTE: RECEIVED PATIENT IN BED THIS MORNING. PATIENT IS ALERT X1, CONFUSED, YI SPEAKING. PATIENT IS ON O2 2L/MIN VIA NC, SATING WELL, NO SIGNS OF RESPIRATORY DISTRESS NOTED. NO SIGNS OF ACUTE DISTRESS NOTED. ON TELE MONITOR, SINUS NATALIE 58 W/ JUNCTIONAL RHYTHM AND VPACE. PATIENT HAS MIDLINE AT LIDA, FLUSHING WELL, SITE C/D/I, NO SIGNS OF COMPLICATIONS NOTED. AV SHUNT ON LEFT ARM, BRUIT + THRILL NOTED, NO SIGNS OF COMPLICATIONS NOTED. PATIENT IS ON ISOLATION D/T + COVID 19 RESULTS. SAFETY MEASURES IMPLEMENTED, BED IN LOWEST POSITION, LOCKED, SIDE RAILS UP, CALL LIGHT WITHIN REACH. WILL CONTINUE TO MONITOR PATIENT FOR CHANGES.
[2020-02-08 08:00] VITALS: BP 147/64
[2020-02-08] MEDS: FOLIC ACID 1 MG TABLET PO SCH (08:05)
[2020-02-08] MEDS: ASCORBIC ACID 500 MG TABLET PO SCH (08:05)
[2020-02-08] MEDS: CALCIUM ACETATE 667 MG TABLET PO SCH ×3 (08:05→17:18)
[2020-02-08] MEDS: GABAPENTIN 300 MG CAPSULE PO SCH (08:05)
[2020-02-08] MEDS: HYDROXYCHLOROQUINE 200 MG TABLET PO SCH ×2 (08:06→22:28)
[2020-02-08] MEDS: ACIDOPHILUS/BULGARICUS 1 EACH TAB.CHEW PO SCH (08:06)
[2020-02-08] MEDS: BENZTROPINE MESYLATE (1 MG) 1 MG TABLET PO SCH (08:06)
[2020-02-08] MEDS: MULTIVITAMINS,THERAGRAN 1 UDTAB TABLET PO SCH (08:06)
[2020-02-08] MEDS: FAMOTIDINE (20 MG) 20 MG TABLET PO SCH (08:06)
[2020-02-08] MEDS: ASPIRIN 81 MG TAB.CHEW PO SCH (08:06)
[2020-02-08] MEDS: SENNOSIDES 8.6 MG TABLET PO SCH ×2 (08:06→17:18)
[2020-02-08] MEDS: HALOPERIDOL 1 MG TABLET PO SCH ×2 (08:06→22:28)
[2020-02-08] MEDS: ESCITALOPRAM OXALATE (10 MG) 10 MG TABLET PO SCH (08:06)
[2020-02-08] MEDS: RIVAROXABAN 10 MG TABLET PO SCH (08:21)
[2020-02-08] MEDS: POLYVINYL ALCOHOL 15 ML BOTTLE EACHEYE SCH ×4 (08:43→21:00)
--- NOTE | 2020-02-08 10:00 | NUR ---
DR OTT AWARE OF PATIENT'S BUN 10.3. SHE IS A DIALYSIS PATIENT.
[2020-02-08 12:00] VITALS: BP 145/67
[2020-02-08] MEDS: LORAZEPAM 1 MG TABLET PO PRN (12:19)
[2020-02-08 16:00] VITALS: BP_SYST 141; BP_SYST 154; BP_DIAS 47; BP_DIAS 90
--- NOTE | 2020-02-08 18:38 | NUR ---
RN CLOSING NOTE: PATIENT REMAINS IN BED. NO SIGNS OF RESPIRATORY DISTRESS NOTED. NO SIGNS OF ACUTE DISTRESS NOTED. ON TELE MONITOR, SINUS NATALIE 57. PATIENT IS ON ISOLATION D/T + COVID 19 RESULTS. SAFETY MEASURES IMPLEMENTED, BED IN LOWEST POSITION, LOCKED, SIDE RAILS UP, CALL LIGHT WITHIN REACH. WILL ENDORSE TO ONCOMING SHIFT RN FOR CONTINUITY OF CARE.
--- NOTE | 2020-02-08 19:30 | NUR ---
SUPPLY MANAGER OPENING NOTE RECEIVED PATIENT ON ISOLATION FOR POSITIVE COVID. PATIENT IS A/OX1-2, PER REPORT THERE IS PERIODS OF CONFUSION. ON OXYGEN 2L.MIN VIA NASAL CANNULA. RESPIRATIONS ARE EVEN AND UNLABORED. NO S/S SOB NOTED. NO C/O PAIN AT THIS TIME. EXTERNAL TELE MONITOR READS SINUS NATALIE HR 56. IN NO APPARENT DISTRESS AT THIS TIME. IV ACCESS IN LIDA MIDLINE PATENT AND SALINE LOCKED. PATIENT HAS LEFT AV SHUNT. COLOSTOMY IS PRESENT IN LLQ. BED IS LOW AND LOCKED, HOB ELEVATED IN SEMI FOWLERS, SIDE RIALS UP X2, BED ALARM ON. CALL LIGHT WITHIN REACH. WILL CONTINUE TO MONITOR.
[2020-02-08 20:00] VITALS: BP 120/46
[2020-02-08] MEDS: AMLODIPINE BESYLATE 5 MG TABLET PO SCH (22:00)
[2020-02-09] VITALS (10 sets, daily range): BP systolic 90–144; BP diastolic 42–84
[2020-02-09] MEDS: LORAZEPAM 1 MG TABLET PO PRN (03:47)
--- NOTE | 2020-02-09 03:47 | NUR ---
telecom coordinator note administered prn ativan 1mg d/t patient is agitated and screaming. tried other calming measures but patient continues to scream. will continue to monitor.
--- NOTE | 2020-02-09 06:15 | NUR ---
EX ASSISTANT/PROGRAM DIRECTOR CLOSING NOTE PATIENT REMAINS ON ISOLATION FOR POSITIVE COVID-19. PATIENT IS A/OX1-2, CONFUSED. ON OXYGEN 2L/MIN VIA NASAL CANNULA. RESPIRATIONS ARE EVEN AND UNLABORED. NO SOB NOTED. NO C/O PAIN THROUGHOUT SHIFT. EXTERNAL TELE MONITOR READS SINUS NATALIE HR 56. NO DISTRESS NOTED. IV ACCESS IN MAINTAINED LIDA MIDLINE PATENT AND SALINE LOCKED. PATIENT HAS LEFT AV SHUNT, POSITIVE THRILL AND BRUIT. COLOSTOMY IS MAINTAINED IN LLQ, NO GAS OR OUTPUT NOTED. BED REMAINS LOW AND LOCKED, HOB ELEVATED IN SEMI FOWLERS, SIDE RIALS UP X2, BED ALARM ON. CALL LIGHT WITHIN REACH. WILL ENDORSE TO NEXT SHIFT.
--- NOTE | 2020-02-09 08:00 | NUR ---
SALON/SPA MANAGER OPENING NOTES Received Patient asleep and resting in bed. A/O x 1, Djiboutian speaking. VS stable with no acute distress. Breathing even and unlabored on 2LPM via NC with no respiratory distress. Denies pain. No signs and symptoms of pain. Telemonitor in place and patent reading SR with HR-62. LIDA Midline clean, intact, patent and flushing well. LAV Shunt in place with thrill and bruit noted. Colostomy in place. Isolation precautions in place. Safety precautions in place. Bed locked and set to lowest position with side rails x 2 up. All needs rendered at this time. Call light within reach. Will continue to monitor.
[2020-02-09] MEDS: FAMOTIDINE (20 MG) 20 MG TABLET PO SCH (09:28)
[2020-02-09] MEDS: CALCIUM ACETATE 667 MG TABLET PO SCH ×3 (09:29→17:22)
[2020-02-09] MEDS: ASPIRIN 81 MG TAB.CHEW PO SCH (09:29)
[2020-02-09] MEDS: FOLIC ACID 1 MG TABLET PO SCH (09:29)
[2020-02-09] MEDS: HYDROXYCHLOROQUINE 200 MG TABLET PO SCH (09:29)
[2020-02-09] MEDS: HALOPERIDOL 1 MG TABLET PO SCH ×2 (09:29→20:20)
[2020-02-09] MEDS: BENZTROPINE MESYLATE (1 MG) 1 MG TABLET PO SCH (09:29)
[2020-02-09] MEDS: ESCITALOPRAM OXALATE (10 MG) 10 MG TABLET PO SCH (09:30)
[2020-02-09] MEDS: ASCORBIC ACID 500 MG TABLET PO SCH (09:30)
[2020-02-09] MEDS: MULTIVITAMINS,THERAGRAN 1 UDTAB TABLET PO SCH (09:30)
[2020-02-09] MEDS: ACIDOPHILUS/BULGARICUS 1 EACH TAB.CHEW PO SCH (09:30)
[2020-02-09] MEDS: GABAPENTIN 300 MG CAPSULE PO SCH (09:30)
[2020-02-09] MEDS: SENNOSIDES 8.6 MG TABLET PO SCH ×2 (09:30→17:22)
[2020-02-09] MEDS: RIVAROXABAN 10 MG TABLET PO SCH (09:31)
[2020-02-09] MEDS: POLYVINYL ALCOHOL 15 ML BOTTLE EACHEYE SCH ×4 (09:32→20:21)
[2020-02-09 12:22] LABS: BASOPHILS # (AUTO) 0.1 /CMM (0.0-0.2); BASOPHILS % (AUTO) 1.3 % (0.0-2.0); EOSINOPHILS % (AUTO) 4.8 % (0.0-6.0); HEMATOCRIT 28 % (33-45); HEMOGLOBIN 9.1 g/dL (11.5-14.8); LYMPHOCYTES # (AUTO) 0.8 /CMM (0.8-4.8); MEAN CORPUSCULAR HGB CONC 32 g/dl (31.0-36.0); MEAN CORPUSCULAR VOLUME 94 fL (82-100); MONOCYTES # (AUTO) 0.5 /CMM (0.1-1.30); MONOCYTES % (AUTO) 12.6 % (2.0-12.0); NEUTROPHILS # (AUTO) 2.7 /CMM (1.8-8.9); NEUTROPHILS % (AUTO) 62.3 % (43.0-81.0); PLATELET COUNT (AUTO) 287 /CMM (150-450); RED BLOOD CELL COUNT(AUTO) 3.03 MIL/uL (4.0-5.2); WHITE BLOOD COUNT (AUTO) 4.3 K/uL (4.3-11.0)
[2020-02-09 12:35] LABS: ALBUMIN 2.4 g/dL (3.4-5.0); ALKALINE PHOSPHATASE 101 U/L (46-116); ASPARTATE AMINOTRANSFERASE 14 U/L (15-37); BILIRUBIN,TOTAL 0.5 mg/dL (0.2-1.0); CALCIUM, SERUM 8.9 mg/dL (8.5-10.1); CARBON DIOXIDE 28 mmol/L (21-32); CHLORIDE 99 mmol/L (98-107); GLUCOSE 125 mg/dL (74-106); MAGNESIUM 2.4 mg/dL (1.8-2.4); SODIUM SERUM 136 mmol/L (136-145); TOTAL PROTEIN, SERUM 7.8 g/dL (6.4-8.2); UREA NITROGEN, BLOOD 55 mg/dL (7-18)
[2020-02-09 12:57] LABS: CREATININE 11.9 mg/dL (0.6-1.3)
[2020-02-09 12:58] LABS: ALANINE AMINOTRANSFERASE < 6 U/L (12-78)
--- NOTE | 2020-02-09 18:37 | NUR ---
MANAGER SALES AND MARKETING CLOSING NOTES Patient resting in bed. A/O x 1, Ukrainian speaking. VS stable with no acute distress. Breathing even and unlabored on 2LPM via NC with no respiratory distress. Denies pain. No signs and symptoms of pain. Telemonitor in place and patent reading SR with HR-59. LIDA Midline clean, intact, patent and flushing well. LAV Shunt in place with thrill and bruit noted. Colostomy in place. Isolation precautions in place. Safety precautions in place. Bed locked and set to lowest position with side rails x 2 up. All needs rendered at this time. Call light within reach. Will endorse plan of care to oncoming shift.
--- NOTE | 2020-02-09 20:12 | NUR ---
RN NOTE PT CURRENTLY UNDERGOING HEMODIALYSIS AT THIS TIME. MANDREL PULLER AT BEDSIDE. VITAL SIGNS STABLE. WILL CONTINUE TO MONITOR.
[2020-02-09] MEDS ORDERED: ALBUMIN 25% 25 GM in PREMIX 1 EA IV PRN (21:00)
[2020-02-09] MEDS: AMLODIPINE BESYLATE 5 MG TABLET PO SCH (21:28)
--- NOTE | 2020-02-09 22:34 | NUR ---
RN NOTE ENDORSED PT TO BELEN PRICE FOR CONTINUATION OF CARE.
--- NOTE | 2020-02-09 23:00 | NUR ---
TELE/RN OPENING NOTES: Received report from BELEN Briscoe. Patient is awake and screaming in bed. A/O x 1, Frisian speaking. VS stable with no acute distress. Breathing even and unlabored on 2LPM via NC with no respiratory distress. Denies pain. No signs and symptoms of pain. Telemonitor in place and patent reading SR with HR-60. LIDA Midline clean, intact, patent and flushing well. LAV Shunt in place with thrill and bruit noted. HD tonight with BELEN Avila, removed fluid:1L. Colostomy in place. Isolation precautions in place. Safety precautions in place. Bed locked and set to lowest position with side rails x 2 up. All needs rendered at this time. Call light within reach. Will continue to monitor.
[2020-02-10] VITALS: BP 110/56
[2020-02-10 04:00] VITALS: BP 133/57
--- NOTE | 2020-02-10 06:52 | NUR ---
TELE/RN CLOSING NOTES: Patient is awake in bed. A/O x 1, VS stable with no acute distress. Breathing even and unlabored on 2LPM via NC with no respiratory distress. Denies pain. No signs and symptoms of pain. Telemonitor in place and patent reading SR with HR-60. LIDA Midline clean, intact, patent and flushing well. LAV Shunt in place with thrill and bruit noted. Colostomy in place. Isolation precautions in place. Safety precautions in place. Bed locked and set to lowest position with side rails x 2 up. All needs rendered at this time. Call light within reach. Will endorse to am shift for ines.
[2020-02-10 07:15] LABS: BASOPHILS # (AUTO) 0.1 /CMM (0.0-0.2); BASOPHILS % (AUTO) 1.2 % (0.0-2.0); EOSINOPHILS % (AUTO) 3.4 % (0.0-6.0); HEMATOCRIT 30 % (33-45); HEMOGLOBIN 9.2 g/dL (11.5-14.8); LYMPHOCYTES % (AUTO) 20.2 % (20.0-44.0); MEAN CORPUSCULAR HGB CONC 31 g/dl (31.0-36.0); MEAN CORPUSCULAR VOLUME 95 fL (82-100); MONOCYTES # (AUTO) 0.7 /CMM (0.1-1.30); MONOCYTES % (AUTO) 14.8 % (2.0-12.0); NEUTROPHILS # (AUTO) 2.9 /CMM (1.8-8.9); NEUTROPHILS % (AUTO) 60.4 % (43.0-81.0); PLATELET COUNT (AUTO) 277 /CMM (150-450); RED BLOOD CELL COUNT(AUTO) 3.15 MIL/uL (4.0-5.2); WHITE BLOOD COUNT (AUTO) 4.8 K/uL (4.3-11.0)
--- NOTE | 2020-02-10 07:15 | NUR ---
rn opening notes Patient received on 2l nasal cannula, no sob noted, patient shows no s/s of pain at this time. Colostomy located at [facility], anuric and had last HD at 02/08. LIDA midline 20 gauge SL present. Medications to be crushed. Bed at the lowest setting, call light within reach, side rails up x2.
[2020-02-10 07:40] LABS: CALCIUM, SERUM 9.1 mg/dL (8.5-10.1); MAGNESIUM 2.5 mg/dL (1.8-2.4); PHOSPHORUS 2.6 mg/dL (2.5-4.9)
[2020-02-10 07:48] LABS: CREATININE 11.1 mg/dL (0.6-1.3); POTASSIUM 6.3 mmol/L (3.5-5.1)
[2020-02-10 08:00] VITALS: BP_SYST 133; BP_DIAS 57; BP_DIAS 58
[2020-02-10] MEDS: FOLIC ACID 1 MG TABLET PO SCH (08:03)
[2020-02-10] MEDS: SENNOSIDES 8.6 MG TABLET PO SCH ×2 (08:03→17:01)
[2020-02-10] MEDS: ASCORBIC ACID 500 MG TABLET PO SCH (08:03)
[2020-02-10] MEDS: ESCITALOPRAM OXALATE (10 MG) 10 MG TABLET PO SCH (08:03)
[2020-02-10] MEDS: ASPIRIN 81 MG TAB.CHEW PO SCH (08:03)
[2020-02-10] MEDS: CALCIUM ACETATE 667 MG TABLET PO SCH ×3 (08:03→17:01)
[2020-02-10] MEDS: GABAPENTIN 300 MG CAPSULE PO SCH (08:03)
[2020-02-10] MEDS: FAMOTIDINE (20 MG) 20 MG TABLET PO SCH (08:04)
[2020-02-10] MEDS: BENZTROPINE MESYLATE (1 MG) 1 MG TABLET PO SCH (08:04)
[2020-02-10] MEDS: MULTIVITAMINS,THERAGRAN 1 UDTAB TABLET PO SCH (08:04)
[2020-02-10] MEDS: ACIDOPHILUS/BULGARICUS 1 EACH TAB.CHEW PO SCH (08:04)
[2020-02-10] MEDS: HALOPERIDOL 1 MG TABLET PO SCH ×2 (08:04→21:22)
[2020-02-10] MEDS: RIVAROXABAN 10 MG TABLET PO SCH (08:05)
[2020-02-10] MEDS: POLYVINYL ALCOHOL 15 ML BOTTLE EACHEYE SCH ×4 (08:13→21:44)
[2020-02-10 12:00] VITALS: BP_SYST 133; BP_SYST 140; BP_DIAS 57; BP_DIAS 61
[2020-02-10] MEDS: LORAZEPAM 1 MG TABLET PO PRN (12:02)
[2020-02-10] MEDS ORDERED: SODIUM POLYSTYRENE SULF. PWD 15 GM UDC PO ONE (14:30)
[2020-02-10 16:00] VITALS: BP 145/65
--- NOTE | 2020-02-10 17:52 | NUR ---
rn closing notes Patient remains on 2L nasal cannula, no sob noted, patient shows no s/s of pain at this time. Potassium elevated but MD aware and patient was given kayaxelate. BM seen and patient is cleaned. HD planned for tomorrow AM. Crushed medications, LIDA midline 20 gauge. Patient remains positive for OCVID 19. Bed at the lowest setting, call light within reach, side rails up x2. Will give report to NOC RN for MAYCOL.
--- NOTE | 2020-02-10 19:37 | NUR ---
ECHO VASCULAR TECHNOLOGIST OPENING NOTES Patient received resting in bed, a/o x 1-2. On 2L of O2 via nc breathing even and unlabored, no sob noted. no signs of acute distress. No complaints of pain or discomfort- no facial grimacing noted. Ostomy bag located on LLQ noted. R UA midline #20. L AV shunt noted positive thrill and bruit. Safety precautions in place with bed in lowest position, breaks on, call light within reach, side rails up. Will continue to monitor throughout the night.
[2020-02-10 20:00] VITALS: BP 122/68
[2020-02-10] MEDS: AMLODIPINE BESYLATE 5 MG TABLET PO SCH (22:52)
[2020-02-11] VITALS (7 sets, daily range): BP systolic 83–149; BP diastolic 25–85
--- NOTE | 2020-02-11 06:35 | NUR ---
RN CLOSING NOTES Patien resting in bed, a/o x 1-2. Stable on RA breathing even and unlabored, no sob noted. no signs of acute distress. No complaints of pain or discomfort- no facial grimacing noted. Ostomy bag located on LLQ noted- emptied throughout the night. R UA midline #20. L AV shunt noted positive thrill and bruit. Safety precautions in place with bed in lowest position, breaks on, call light within reach, side rails up. All needs attended to. Patient was kept clean and dry. Will endorse to oncoming shift about ines.
[2020-02-11 07:01] LABS: BASOPHILS # (AUTO) 0.1 /CMM (0.0-0.2); BASOPHILS % (AUTO) 1.8 % (0.0-2.0); EOSINOPHILS % (AUTO) 2.6 % (0.0-6.0); HEMATOCRIT 30 % (33-45); HEMOGLOBIN 9.3 g/dL (11.5-14.8); LYMPHOCYTES # (AUTO) 0.9 /CMM (0.8-4.8); MEAN CORPUSCULAR HGB CONC 31 g/dl (31.0-36.0); MEAN CORPUSCULAR VOLUME 94 fL (82-100); MONOCYTES # (AUTO) 0.8 /CMM (0.1-1.30); MONOCYTES % (AUTO) 14.6 % (2.0-12.0); NEUTROPHILS # (AUTO) 3.5 /CMM (1.8-8.9); PLATELET COUNT (AUTO) 283 /CMM (150-450); WHITE BLOOD COUNT (AUTO) 5.5 K/uL (4.3-11.0)
--- NOTE | 2020-02-11 07:15 | NUR ---
RN OPENING NOTE Received patient awake in bed on RA tolerating well. Patient is togolese speaking only. Able to communicate needs. AO x2. Has a LLQ Colostomy. Dressing intact. No stool at the moment. Pt has L AV shunt with bruit and thrill palpated. Patient will possibly have hemodialysis will follow up. Reinforced safety measures. Assured patient and encourage calming techniques. TV on. No co pain or discomfort. Bed locked and on lowest position. Call light within reach. Will cont to monitor.
[2020-02-11 07:48] LABS: CALCIUM, SERUM 9.2 mg/dL (8.5-10.1); MAGNESIUM 2.5 mg/dL (1.8-2.4); PHOSPHORUS 2.9 mg/dL (2.5-4.9); POTASSIUM 6.1 mmol/L (3.5-5.1)
[2020-02-11 07:55] LABS: CREATININE 12.1 mg/dL (0.6-1.3)
[2020-02-11] MEDS: CALCIUM ACETATE 667 MG TABLET PO SCH ×3 (08:21→18:34)
[2020-02-11] MEDS: ACIDOPHILUS/BULGARICUS 1 EACH TAB.CHEW PO SCH (08:21)
[2020-02-11] MEDS: FOLIC ACID 1 MG TABLET PO SCH (08:21)
[2020-02-11] MEDS: BENZTROPINE MESYLATE (1 MG) 1 MG TABLET PO SCH (08:22)
[2020-02-11] MEDS: ASCORBIC ACID 500 MG TABLET PO SCH (08:22)
[2020-02-11] MEDS: ESCITALOPRAM OXALATE (10 MG) 10 MG TABLET PO SCH (08:22)
[2020-02-11] MEDS: SENNOSIDES 8.6 MG TABLET PO SCH ×2 (08:22→16:21)
[2020-02-11] MEDS: HALOPERIDOL 1 MG TABLET PO SCH ×2 (08:23→21:58)
[2020-02-11] MEDS: MULTIVITAMINS,THERAGRAN 1 UDTAB TABLET PO SCH (08:24)
[2020-02-11] MEDS: FAMOTIDINE (20 MG) 20 MG TABLET PO SCH (08:24)
[2020-02-11] MEDS: GABAPENTIN 300 MG CAPSULE PO SCH (08:24)
[2020-02-11] MEDS: ASPIRIN 81 MG TAB.CHEW PO SCH (08:24)
[2020-02-11] MEDS: RIVAROXABAN 10 MG TABLET PO SCH (08:24)
[2020-02-11] MEDS: POLYVINYL ALCOHOL 15 ML BOTTLE EACHEYE SCH ×4 (08:24→21:00)
--- NOTE | 2020-02-11 09:00 | NUR ---
RN NOTE Charge nurse followed up with dialysis nurse per nurse patient is scheduled for dialysis today.
[2020-02-11] MEDS ORDERED: ALBUMIN 25% 25 GM in PREMIX 1 EA IV PRN (16:10)
--- NOTE | 2020-02-11 18:52 | NUR ---
RN CLOSING NOTE Patient in bed stable. Hemodialysis done tolerated well. No co pain or discomfort. No distress. All due meds given. Vital signs stable. All needs met. Will endorse to night shift supervisor for ines.
--- NOTE | 2020-02-11 19:25 | NUR ---
RN OPENING NOTES RECEIVED PATIENT RESTING IN BED, EASILY AROUSABLE. A/OX1-2. NO SIGNS OF DISTRESS OR DISCOMFORT. BREATHING EVEN AND UNLABORED. ON TELE MONITORING WITH SR 63 NOTED. HAS LIDA MIDLINE, PATENT AND INTACT, NO SIGNS OF REDNESS OR INFILTRATIONS. MONCHO SHUNT INTACT. HAS COLOSTOMY BAG INTACT. BED IN LOW LOCKED POSITION WITH SIDE RAILS X3. CALL LIGHT WITHIN REACH. WILL CONTINUE TO MONITOR.
[2020-02-11] MEDS: AMLODIPINE BESYLATE 5 MG TABLET PO SCH (23:06)
[2020-02-12] VITALS: BP 138/60
[2020-02-12 04:00] VITALS: BP 135/46
--- NOTE | 2020-02-12 07:10 | NUR ---
REVENUE COORDINATOR NOTES PATIENT IN BED A/OX2 ON ROOM AIR SATURATING 100%. NO SOB OR DISCOMFORT NOTED AT THIS TIME. MIDLINE FLUSHED WELL BUT NO BLOOD RETURN NOTED. BED AT THE LOWEST POSITION LOCKED. CALL LIGHT WITHIN REACH WILL FOLLOW UP WITH THE PATIENT.
--- NOTE | 2020-02-12 07:18 | NUR ---
RN CLOSING NOTES PATIENT RESTING IN BED, EASILY AROUSABLE. A/OX1-2. NO SIGNS OF DISTRESS OR DISCOMFORT. BREATHING EVEN AND UNLABORED. ON TELE MONITORING WITH SR 63 NOTED. HAS LIDA MIDLINE, PATENT AND INTACT, NO SIGNS OF REDNESS OR INFILTRATIONS. MONCHO SHUNT INTACT. HAS COLOSTOMY BAG INTACT. ALL NEEDS MET. NO SIGNIFICANT CHANGES THROUGH THE NIGHT. PATIENT KEPT CLEAN DRY AND COMFORTABLE. REPOSITIONED Q2H AND PRN. BED IN LOW LOCKED POSITION WITH SIDE RAILS X3. CALL LIGHT WITHIN REACH. WILL ENDORSE TO AM SHIFT FOR MAY[facility].
[2020-02-12 08:00] VITALS: BP 135/46
[2020-02-12] MEDS: ACIDOPHILUS/BULGARICUS 1 EACH TAB.CHEW PO SCH (08:05)
[2020-02-12] MEDS: HALOPERIDOL 1 MG TABLET PO SCH ×2 (08:06→21:00)
[2020-02-12] MEDS: RIVAROXABAN 10 MG TABLET PO SCH (08:08)
[2020-02-12] MEDS: CALCIUM ACETATE 667 MG TABLET PO SCH ×3 (08:09→18:01)
[2020-02-12] MEDS: ASCORBIC ACID 500 MG TABLET PO SCH (08:09)
[2020-02-12] MEDS: FOLIC ACID 1 MG TABLET PO SCH (08:09)
[2020-02-12] MEDS: SENNOSIDES 8.6 MG TABLET PO SCH ×2 (08:09→18:01)
[2020-02-12] MEDS: FAMOTIDINE (20 MG) 20 MG TABLET PO SCH (08:09)
[2020-02-12] MEDS: MULTIVITAMINS,THERAGRAN 1 UDTAB TABLET PO SCH (08:09)
[2020-02-12] MEDS: ESCITALOPRAM OXALATE (10 MG) 10 MG TABLET PO SCH (08:09)
[2020-02-12] MEDS: GABAPENTIN 300 MG CAPSULE PO SCH (08:09)
[2020-02-12] MEDS: ASPIRIN 81 MG TAB.CHEW PO SCH (08:09)
[2020-02-12] MEDS: BENZTROPINE MESYLATE (1 MG) 1 MG TABLET PO SCH (08:09)
--- NOTE | 2020-02-12 09:35 | NUR ---
WOUND CARE CONSULT: REVIEWED NURSING DOCUMENTATION INCLUDING PHOTOS WHICH SHOW SACRAL SCARRING EXTENDING TO BUTTOCKS AND OSTOMY, WELL BILATERAL ABOVE KNEE AMPUTATION SCARS/STUMPS, PRESENT ON ADMISSION. RECOMMENDATIONS MADE FOR SKIN PROTECTION AND DISCUSSED WITH NURSING STAFF. WILL SEE PRN. CURRENT MACY SCORE IS 15. MD IN AGREEMENT WITH PLAN OF CARE.
[2020-02-12] MEDS: POLYVINYL ALCOHOL 15 ML BOTTLE EACHEYE SCH ×4 (10:43→21:00)
[2020-02-12 12:00] VITALS: BP 144/38
[2020-02-12 16:00] VITALS: BP 139/36
--- NOTE | 2020-02-12 16:07 | NUR ---
CHANGE ATTENDANT NOTES MIDLINE WAS FLUSHED WELL BUT NO BLOOD RETURN OBSERVED.
--- NOTE | 2020-02-12 19:32 | NUR ---
COMPUTER NETWORKER NOTES PATIENT IN BED A/OX2 ON ROOM AIR SATURATING 100%. NO SOB OR DISCOMFORT NOTED AT THIS TIME. MIDLINE FLUSHED WELL BUT NO BLOOD RETURN NOTED. BED AT THE LOWEST POSITION LOCKED. CALL LIGHT WITHIN REACH WILL FOLLOW UP WITH THE PATIENT. Addendum: 02/12/20 at 1934 by MARCELA COTTON RN ALL NEED ATTENDED. MEDICATIONS ADMINISTRATED. ENDORSED TO STOCK LETTERER NURSE FOR MAYCOL.
--- NOTE | 2020-02-12 19:55 | NUR ---
RN OPENING NOTES RECEIVED HAND OFF REPORT FROM DAYSHIFT BELEN MEDRANO. FOUND Pt ASLEEP RESTING IN BED, EASILY AWAKENED. PER REPORT Pt IS A/OX1-2, CONFUSED, [place] SPEAKING ONLY. PER REPORT SHEET ON RA SATING @ 99%. ON TELE MONITOR, TELE READING: SB-SR 55-65. IV ACCESS ON LIDA ML #20, SL (PER REPORT SHEET THERE IS NO BLOOD RETURN ON THE MIDLINE). MONCHO AV SHUNT. COLOSTOMY ON LLQ. SAFETY MEASURES IN PLACE. BED LOW, LOCKED, HOB ELEVATED, SIDE RAILS UP, CALL LIGHT AND BEDSIDE TABLE WITHIN REACH. WILL CONTINUE TO MONITOR Pt's CONDITION AND SAFETY THROUGHOUT THE NIGHT.
[2020-02-12 20:00] VITALS: BP 132/47
[2020-02-12] MEDS: AMLODIPINE BESYLATE 5 MG TABLET PO SCH (22:00)
--- NOTE | 2020-02-12 22:58 | NUR ---
RN NOTES DID NOT ADMINISTER HALDOL. Pt IS RESTING COMFORTABLY IN BED, HR SB @55-58. DID NOT ADMINISTER NORVASC D/T Pt's LOW HR OF 55-58. DIASTOLIC BP 47. Addendum: 02/13/20 at 0326 by HARPAL WETZEL RN WAS UNABLE TO RETURN HALDOL D/T ORDERED DOSE BEING 0.5MG. DISCARDED MED INTO PHARM WASTE BIN.
[2020-02-13] VITALS (8 sets, daily range): BP systolic 99–151; BP diastolic 27–50
[2020-02-13 06:30] LABS: BASOPHILS % (AUTO) 0.5 % (0.0-2.0); EOSINOPHILS % (AUTO) 2.1 % (0.0-6.0); HEMATOCRIT 29 % (33-45); HEMOGLOBIN 9.1 g/dL (11.5-14.8); LYMPHOCYTES # (AUTO) 1.4 /CMM (0.8-4.8); LYMPHOCYTES % (AUTO) 32.3 % (20.0-44.0); MEAN CORPUSCULAR HGB CONC 31 g/dl (31.0-36.0); MEAN CORPUSCULAR VOLUME 93 fL (82-100); MONOCYTES # (AUTO) 0.9 /CMM (0.1-1.30); NEUTROPHILS % (AUTO) 44.1 % (43.0-81.0); PLATELET COUNT (AUTO) 255 /CMM (150-450); RED BLOOD CELL COUNT(AUTO) 3.12 MIL/uL (4.0-5.2); WHITE BLOOD COUNT (AUTO) 4.5 K/uL (4.3-11.0)
--- NOTE | 2020-02-13 06:54 | NUR ---
RN CLOSING NOTES NO SIGNIFICANT CHANGES IN Pt' CONDITION. Pt IS AWAKE, RESTING COMFORTABLY IN BED, WITH NO S/S OF ACUTE DISTRESS OR SOB NOTED DURING THE NIGHT. ALL NEEDS MET AND ATTENDED TO. SAFETY MEASURES IN PLACE. TELE READING SB/SR 55-67. WILL ENDORSE TO DAYSHIFT RN FOR Pt's MAYCOL.
[2020-02-13 07:07] LABS: ALBUMIN 2.9 g/dL (3.4-5.0); BILIRUBIN,TOTAL 0.5 mg/dL (0.2-1.0); CALCIUM, SERUM 9.1 mg/dL (8.5-10.1); MAGNESIUM 2.5 mg/dL (1.8-2.4); PHOSPHORUS 3.3 mg/dL (2.5-4.9); POTASSIUM 5.8 mmol/L (3.5-5.1); TOTAL PROTEIN, SERUM 8.3 g/dL (6.4-8.2)
[2020-02-13 07:18] LABS: CREATININE 12.8 mg/dL (0.6-1.3)
[2020-02-13] MEDS: FAMOTIDINE (20 MG) 20 MG TABLET PO SCH (07:30)
[2020-02-13] MEDS: CALCIUM ACETATE 667 MG TABLET PO SCH ×3 (07:30→17:03)
--- NOTE | 2020-02-13 07:45 | NUR ---
Tele/RN - Assessment Patient is alert and oriented x 1-2, Tajik speaking, afebrile, denies pain, stable on room air, tele shows SB-SR. LIDA midline in place with no signs of infiltration. Ostomy on the LLQ intact. Skin noted with scarring on the sacrum ext to buttocks, will do wound treatment as ordered, JAMEE mattress in place. Labs reviewed, pending Covid-19 #2, critical result Creatine 12.[address] Henry with no new order. Patient for HD treatment today. All needs attended. Droplet and contact precautions maintained. Will continue with current medical management.
[2020-02-13] MEDS: ASCORBIC ACID 500 MG TABLET PO SCH (08:11)
[2020-02-13] MEDS: HALOPERIDOL 1 MG TABLET PO SCH ×2 (08:11→20:05)
[2020-02-13] MEDS: ESCITALOPRAM OXALATE (10 MG) 10 MG TABLET PO SCH (08:11)
[2020-02-13] MEDS: ACIDOPHILUS/BULGARICUS 1 EACH TAB.CHEW PO SCH (08:11)
[2020-02-13] MEDS: ASPIRIN 81 MG TAB.CHEW PO SCH (08:11)
[2020-02-13] MEDS: RIVAROXABAN 10 MG TABLET PO SCH (08:11)
[2020-02-13] MEDS: BENZTROPINE MESYLATE (1 MG) 1 MG TABLET PO SCH (08:12)
[2020-02-13] MEDS: FOLIC ACID 1 MG TABLET PO SCH (08:12)
[2020-02-13] MEDS: SENNOSIDES 8.6 MG TABLET PO SCH ×2 (08:12→16:37)
[2020-02-13] MEDS: MULTIVITAMINS,THERAGRAN 1 UDTAB TABLET PO SCH (08:12)
[2020-02-13] MEDS: GABAPENTIN 300 MG CAPSULE PO SCH (08:12)
[2020-02-13] MEDS: POLYVINYL ALCOHOL 15 ML BOTTLE EACHEYE SCH ×4 (08:13→20:05)
[2020-02-13 10:28] LABS: BAND % (MANUAL) 3 % (0.0-5.0); EOSINOPHILS % (MANUAL) 2 % (0-4); LYMPHOCYTES % (MANUAL) 34 % (16-48); MONOCYTES % (MANUAL) 17 % (0-11.0); NEUTROPHILS % (MANUAL) 44 (42-76)
[2020-02-13 16:19] LABS: POTASSIUM 5.9 mmol/L (3.5-5.1)
[2020-02-13 16:23] LABS: CREATININE 13.2 mg/dL (0.6-1.3)
--- NOTE | 2020-02-13 18:30 | NUR ---
Tele/RN - End of shift summary No significant change in condition seen, A/O x 1-2, frequent reorientation given, remain afebrile, second Covid-19 test was positive. HD treatment done 1 liter was removed. BMP pre and post HD sent to lab. All needs attended. Will continue with current medical management.
--- NOTE | 2020-02-13 19:30 | NUR ---
RN NOTES, PATIENT AWAKE AT THIS TIME, BREATHING EVEN AND UNLABORED, NO S/S OF SOB/ACUTE DISTRESS NOTED AT THIS TIME, ON 2LPM VIA NC WITH OPTIMAL O2 SAT LEVEL >95% NS JANET IN THE TELE MONITOR WITH HR 50S AT THIS TIME, COLOSTOMY BAG IN PLACED, MODERATE AMOUNT OF STOOL NOTED IN BAG, ON ISOLATION COVID 19 (+), X4 SWAB STILL POSITIVE, SAFETY MEASURE MAINTAINED, BED LOCKED AND LOWEST POSITION, CALL LIGHT WITHIN REACH, LIDA MIDLINE IN PLACED PATENT AND INTACT, IN SIDE RAILS UP X3 ALL NEEDS ATTENDED, PATIENT ASKING FOR FOOD, WILL FEED HER, WILL CONTINUE TO MONITOR CLOSELY.
[2020-02-13 19:35] LABS: CALCIUM, SERUM 8.1 mg/dL (8.5-10.1); CREATININE 5.2 mg/dL (0.6-1.3)
[2020-02-13 19:44] LABS: POTASSIUM 3.2 mmol/L (3.5-5.1)
[2020-02-13] MEDS: AMLODIPINE BESYLATE 5 MG TABLET PO SCH (22:00)
[2020-02-14] VITALS (7 sets, daily range): BP systolic 99–148; BP diastolic 39–83
--- NOTE | 2020-02-14 06:20 | NUR ---
RN NOTE PATIENT REMAINED STABLE THROUGHOUT THE NIGHT, CONT ON ISOLATION FOR + COVID 4X, ALL DUE MEDS GIVEN ORDERED AND TOLERATED WELL, PATIENT WAS KEPT CLEAN DRY AND COMFORTABLE, WILL ENDORSE CONTINUITY OF CARE TO ONCOMING NURSE.
[2020-02-14 06:28] LABS: CALCIUM, SERUM 8.7 mg/dL (8.5-10.1); POTASSIUM 5.2 mmol/L (3.5-5.1)
[2020-02-14 07:02] LABS: CREATININE 11.5 mg/dL (0.6-1.3)
--- NOTE | 2020-02-14 07:05 | NUR ---
0705 CRITICAL CREATININE 11.[address] GROVES. AWAITING ORDERS.
--- NOTE | 2020-02-14 08:00 | NUR ---
HUMAN RESOURCES TRAINER AM NOTES RECEIVED Pt AWAKE RESTING IN BED, A/OX1-2, CONFUSED, OCCITAN SPEAKING ONLY. PER REPORT SHEET ON RA SATING @ 100%. ON TELE MONITOR, TELE READING: SB-SR 55-65. IV ACCESS ON LIDA ML #20, MIDLINE . MONCHO AV SHUNT. COLOSTOMY ON LLQ. SAFETY MEASURES IN PLACE. BED LOW, LOCKED, HOB ELEVATED, SIDE RAILS UP, CALL LIGHT AND BEDSIDE TABLE WITHIN REACH. WILL CONTINUE TO MONITOR.
[2020-02-14] MEDS: FAMOTIDINE (20 MG) 20 MG TABLET PO SCH (08:35)
[2020-02-14] MEDS: ESCITALOPRAM OXALATE (10 MG) 10 MG TABLET PO SCH (08:35)
[2020-02-14] MEDS: GABAPENTIN 300 MG CAPSULE PO SCH (08:35)
[2020-02-14] MEDS: HALOPERIDOL 1 MG TABLET PO SCH ×2 (08:35→21:37)
[2020-02-14] MEDS: CALCIUM ACETATE 667 MG TABLET PO SCH ×3 (08:35→17:21)
[2020-02-14] MEDS: BENZTROPINE MESYLATE (1 MG) 1 MG TABLET PO SCH (08:35)
[2020-02-14] MEDS: FOLIC ACID 1 MG TABLET PO SCH (08:35)
[2020-02-14] MEDS: ASPIRIN 81 MG TAB.CHEW PO SCH (08:35)
[2020-02-14] MEDS: ACIDOPHILUS/BULGARICUS 1 EACH TAB.CHEW PO SCH (08:35)
[2020-02-14] MEDS: ACETAMINOPHEN ES 500 MG TABLET PO PRN (08:35)
[2020-02-14] MEDS: MULTIVITAMINS,THERAGRAN 1 UDTAB TABLET PO SCH (08:35)
[2020-02-14] MEDS: SENNOSIDES 8.6 MG TABLET PO SCH ×2 (08:35→17:21)
[2020-02-14] MEDS: ASCORBIC ACID 500 MG TABLET PO SCH (08:35)
[2020-02-14] MEDS: RIVAROXABAN 10 MG TABLET PO SCH (08:37)
[2020-02-14] MEDS: POLYVINYL ALCOHOL 15 ML BOTTLE EACHEYE SCH ×4 (09:02→21:37)
[2020-02-14] MEDS: LORAZEPAM 1 MG TABLET PO PRN (10:55)
--- NOTE | 2020-02-14 19:25 | NUR ---
RN OPENING NOTES, PATIENT SLEEPING AT THIS TIME, AT RA BREATHING EVEN AND UNLABORED, NO S/S OF SOB/ACUTE DISTRESS NOTED AT THIS TIME WITH 100% O2 SAT LEVEL, SINUS NATALIE IN THE TELE MONITOR WITH HR 50S AT THIS TIME, LIDA MIDLINE IN PLACED PATENT AND INTACT, ANURIC HD PATIENT, COLOSTOMY BAG IN PLACED, MODERATE AMOUNT OF STOOL NOTED IN BAG, WILL CHANGE, ON ISOLATION COVID 19 (+), X4 SWAB STILL POSITIVE, SAFETY MEASURES MAINTAINED, BED LOCKED AND LOWEST POSITION, CALL LIGHT WITHIN REACH, SIDE RAILS UP X3 ALL NEEDS ATTENDED, WILL CONTINUE TO MONITOR CLOSELY.
--- NOTE | 2020-02-14 19:40 | NUR ---
RN OPENING NOTES, PATIENT AWAKE AT THIS TIME, A/O X4, ABLE TO VERBALIZED NEEDS AND CONCERNS, CZECH SPEAKING, ST IN TELE MONITOR WITH HR LOW 100S AT THIS TIME, BREATHING EVEN AND UNLABORED, NO S/S OF SOB/ACUTE DISTRESS NOTED AT THIS TIME, LEFT AC PIV LINE IN PLACED 18G PATENT AND INTACT, AMBULATORY, WITH BRP PRIVILEGES, ON ISOLATION PRECAUTIONS FOR R/O COVID 19, AWAITING FOR RESULTS, SAFETY MEASURES MAINTAINED, BED LOCKED AND LOWEST POSITION, CALL LIGHT WITHIN REACH, SIDE RAILS UP X, ALL NEEDS ATTENDED, WILL CONTINUE TO MONITOR PATIENT CLOSELY. Addendum: 02/15/20 at 0631 by QUINTON EMANUEL RN WRONG ENTRY
[2020-02-14] MEDS: AMLODIPINE BESYLATE 5 MG TABLET PO SCH (23:15)
[2020-02-15] VITALS: BP_SYST 106; BP_SYST 107; BP_DIAS 44; BP_DIAS 57
[2020-02-15 04:00] VITALS: BP 131/34
--- NOTE | 2020-02-15 06:40 | NUR ---
RN CLOSING NOTES, PATIENT SLEEPING AT THIS TIME, AT RA BREATHING EVEN AND UNLABORED, NO S/S OF SOB/ACUTE DISTRESS NOTED AT THIS TIME WITH 100% O2 SAT LEVEL, CONTINUE SINUS NATALIE IN THE TELE MONITOR WITH HR 50S MOST OF THE NIGHT, LIDA MIDLINE IN PLACED PATENT AND INTACT, ON ISOLATION COVID 19 (+), X4 SWAB STILL POSITIVE, NO SIGNIFICANT CHANGE IN CONDITION THROUGHOUT THE NIGHT, SAFETY MEASURES MAINTAINED, BED LOCKED AND LOWEST POSITION, CALL LIGHT WITHIN REACH, SIDE RAILS UP X3 ALL NEEDS ATTENDED, CLEAN AND WELL REPOSITIONED, WILL ENDORSE CONTINUITY OF CARE TO ONCOMING NURSE.
--- NOTE | 2020-02-15 07:30 | NUR ---
Tele/RN Opening Note Received patient in bed, AO x 1-2 able to responds all stimuli. Screaming occcasionally. Respiratory even and unlabored with room air, no distress observed. Skin is warm to touch, intact AV shunt and mid line. Kept lower position of the bed with locked wheel for safety. Noticed potassium is high this morning, Dr. Trinh made aware. Call Addendum: 02/15/20 at 1053 by CHALINO SHERMAN RN Error
--- NOTE | 2020-02-15 07:30 | NUR ---
Tele/RN Opening Note Received patient in bed, AO x 1-2 able to responds all stimuli, screaming occasionally. Respiratory even and unlabored with room air, no distress observed. Skin is warm to touch, intact AV shunt and mid line. Kept lower position of the bed with locked wheel for safety. Noticed potassium is high this morning, Dr. Trinh made aware. Call light within reach, will continue to monitor.
[2020-02-15 07:42] LABS: BASOPHILS # (AUTO) 0.1 /CMM (0.0-0.2); BASOPHILS % (AUTO) 3.7 % (0.0-2.0); EOSINOPHILS % (AUTO) 0.8 % (0.0-6.0); HEMATOCRIT 28 % (33-45); HEMOGLOBIN 8.9 g/dL (11.5-14.8); LYMPHOCYTES # (AUTO) 1.3 /CMM (0.8-4.8); LYMPHOCYTES % (AUTO) 32.6 % (20.0-44.0); MEAN CORPUSCULAR HGB CONC 32 g/dl (31.0-36.0); MEAN CORPUSCULAR VOLUME 94 fL (82-100); MONOCYTES # (AUTO) 0.8 /CMM (0.1-1.30); NEUTROPHILS # (AUTO) 1.8 /CMM (1.8-8.9); NEUTROPHILS % (AUTO) 43.9 % (43.0-81.0); PLATELET COUNT (AUTO) 217 /CMM (150-450); RED BLOOD CELL COUNT(AUTO) 2.98 MIL/uL (4.0-5.2)
[2020-02-15 07:53] LABS: ALBUMIN 2.8 g/dL (3.4-5.0); BILIRUBIN,TOTAL 0.4 mg/dL (0.2-1.0); MAGNESIUM 2.7 mg/dL (1.8-2.4); PHOSPHORUS 4.5 mg/dL (2.5-4.9); POTASSIUM 5.5 mmol/L (3.5-5.1); TOTAL PROTEIN, SERUM 7.9 g/dL (6.4-8.2)
[2020-02-15 08:00] VITALS: BP 145/54
[2020-02-15 08:02] LABS: THYROID STIMULATING HORMONE 0.299 uIU/mL (0.358-3.74)
[2020-02-15 08:26] LABS: CREATININE 12.6 mg/dL (0.6-1.3)
[2020-02-15] MEDS: ASCORBIC ACID 500 MG TABLET PO SCH (08:57)
[2020-02-15] MEDS: CALCIUM ACETATE 667 MG TABLET PO SCH ×3 (08:57→17:22)
[2020-02-15] MEDS: GABAPENTIN 300 MG CAPSULE PO SCH (08:57)
[2020-02-15] MEDS: ASPIRIN 81 MG TAB.CHEW PO SCH (08:59)
[2020-02-15] MEDS: RIVAROXABAN 10 MG TABLET PO SCH (08:59)
[2020-02-15] MEDS: MULTIVITAMINS,THERAGRAN 1 UDTAB TABLET PO SCH (09:00)
[2020-02-15] MEDS: HALOPERIDOL 1 MG TABLET PO SCH ×2 (09:00→20:49)
[2020-02-15] MEDS: BENZTROPINE MESYLATE (1 MG) 1 MG TABLET PO SCH (09:00)
[2020-02-15] MEDS: FOLIC ACID 1 MG TABLET PO SCH (09:00)
[2020-02-15] MEDS: ESCITALOPRAM OXALATE (10 MG) 10 MG TABLET PO SCH (09:00)
[2020-02-15] MEDS: SENNOSIDES 8.6 MG TABLET PO SCH ×2 (09:00→17:23)
[2020-02-15] MEDS: FAMOTIDINE (20 MG) 20 MG TABLET PO SCH (09:08)
[2020-02-15] MEDS: ACIDOPHILUS/BULGARICUS 1 EACH TAB.CHEW PO SCH (09:08)
[2020-02-15] MEDS: POLYVINYL ALCOHOL 15 ML BOTTLE EACHEYE SCH ×4 (09:10→21:39)
[2020-02-15 09:54] LABS: BAND % (MANUAL) 1 % (0.0-5.0); LYMPHOCYTES % (MANUAL) 29 % (16-48); MONOCYTES % (MANUAL) 25 % (0-11.0); NEUTROPHILS % (MANUAL) 45 (42-76)
[2020-02-15 12:00] VITALS: BP_SYST 110; BP_SYST 115; BP_DIAS 43; BP_DIAS 54
[2020-02-15 16:00] VITALS: BP 116/46
--- NOTE | 2020-02-15 18:40 | NUR ---
Tele/RN Closing Note Patient in bed, remains AO x 1-2, having HD at bed side, no appears pain or any discomfort. Skin is warm to touch, kept clean/dry, intact mid line site. No respiratory distress observed, even and unlabored with room air. Keep lower position of the bed with locked wheel and elevated HOB. Call light within reach, all needs met, will endorse mercantile agent.
--- NOTE | 2020-02-15 19:30 | NUR ---
RN OPENING NOTE PATIENT AWAKE A/O X2, CURRENTLY ON HD, NURSE AT BEDSIDE, PT ON RA BREATHING EVEN AND UNLABORED, NO S/S OF SOB/ACUTE DISTRESS NOTED AT THIS TIME WITH 100% O2 SAT CURRENTLY SINUS NATALIE IN THE TELE MONITOR WITH HR 58, LIDA MIDLINE IN PLACED PATENT AND INTACT, ON ISOLATION COVID 19 (+), SAFETY MEASURES MAINTAINED, BED LOCKED AND LOWEST POSITION, CALL LIGHT WITHIN REACH, SIDE RAILS UP X3 WILL CONTINUE TO MONITOR PT
[2020-02-15 20:00] VITALS: BP 125/75
[2020-02-15] MEDS: AMLODIPINE BESYLATE 5 MG TABLET PO SCH (22:13)
[2020-02-16] VITALS: BP 132/48
[2020-02-16 04:00] VITALS: BP 130/40
--- NOTE | 2020-02-16 07:12 | NUR ---
RN CLOSING NOTE PATIENT AWAKE PT ON RA BREATHING EVEN AND UNLABORED, NO S/S OF SOB/ACUTE DISTRESS NOTED AT THIS TIME, CURRENTLY SINUS NATALIE IN THE TELE MONITOR WITH HR 56, LIDA MIDLINE IN PLACED PATENT AND INTACT, ON ISOLATION COVID 19 (+), SAFETY MEASURES MAINTAINED, BED LOCKED AND LOWEST POSITION, CALL LIGHT WITHIN REACH, SIDE RAILS UP X2. ENDORSED TO AM RN FOR MAYCOL
[2020-02-16 07:13] LABS: CALCIUM, SERUM 8.5 mg/dL (8.5-10.1); POTASSIUM 5.5 mmol/L (3.5-5.1)
[2020-02-16 07:21] LABS: CREATININE 11.1 mg/dL (0.6-1.3)
[2020-02-16 08:00] VITALS: BP 150/36
--- NOTE | 2020-02-16 08:00 | NUR ---
METAL BURRER NOTES PATIENT IN BED ALERT,ORIENTED X1 BURMESE SPEAKING. NO SOB OR ACUTE DISTRESS NOTED. PATIENT IN BED WITH CALL LIGHT IN REACH. NOTED WITH BP OF 150/36 PULSE 77, TEMP OF 97.2, RESP 22, O2 SAT. 99%. AHSAN CAMACHO MADE AWARE, ALSO DR. GARDNER MADE AWARE NO ORDERS GIVEN CONTINUE TO MONITOR. PATIENTS BASELINE IS LOW. BED IN LOW POSITION IN NO DISTRESS. WILL CONTINUE TO MONITOR.
[2020-02-16] MEDS: POLYVINYL ALCOHOL 15 ML BOTTLE EACHEYE SCH ×3 (09:00→17:30)
[2020-02-16] MEDS: SENNOSIDES 8.6 MG TABLET PO SCH ×2 (09:19→17:29)
[2020-02-16] MEDS: ASPIRIN 81 MG TAB.CHEW PO SCH (09:20)
[2020-02-16] MEDS: HALOPERIDOL 1 MG TABLET PO SCH (09:20)
[2020-02-16] MEDS: MULTIVITAMINS,THERAGRAN 1 UDTAB TABLET PO SCH (09:21)
[2020-02-16] MEDS: GABAPENTIN 300 MG CAPSULE PO SCH (09:21)
[2020-02-16] MEDS: ESCITALOPRAM OXALATE (10 MG) 10 MG TABLET PO SCH (09:21)
[2020-02-16] MEDS: FOLIC ACID 1 MG TABLET PO SCH (09:21)
[2020-02-16] MEDS: ASCORBIC ACID 500 MG TABLET PO SCH (09:21)
[2020-02-16] MEDS: BENZTROPINE MESYLATE (1 MG) 1 MG TABLET PO SCH (09:21)
[2020-02-16] MEDS: ACIDOPHILUS/BULGARICUS 1 EACH TAB.CHEW PO SCH (09:21)
[2020-02-16] MEDS: RIVAROXABAN 10 MG TABLET PO SCH (09:23)
[2020-02-16] MEDS: CALCIUM ACETATE 667 MG TABLET PO SCH ×3 (09:26→17:29)
[2020-02-16] MEDS: FAMOTIDINE (20 MG) 20 MG TABLET PO SCH (09:26)
[2020-02-16 12:00] VITALS: BP 153/37
[2020-02-16 16:00] VITALS: BP 151/45
--- NOTE | 2020-02-16 19:00 | NUR ---
RN OPENING NOTES: PATIENT IN BED, AWAKE, AND VERBALLY RESPONSIVE. UZBEK-SPEAKING. NO RESPIRATORY DISTRESS. NO C/O PAIN. ON INSPECTOR SCALES. UPON ENDORSEMENT, PATIENT WILL BE DISCHARGED TONIGHT AROUND 1999. LIDA MIDLINE C/D/I. FLUSHING WELL. WILL REMOVE UPON DISCHARGE. COLOSTOMY IN PLACE. PATIENT HAS MONCHO AV SHUNT; CLEAN AND INTACT. (+) BRUIT AND THRILL. SAFETY PRECAUTIONS IMPLEMENTED. BED LOCKED, ALARM ON, LOW POSITION. CALL LIGHT PLACED WITHIN REACH. WILL CONT. TO MONITOR.
--- NOTE | 2020-02-16 19:16 | NUR ---
FLOATING LABOR GANG SUPERVISOR NOTES PATIENT IN BED RESTING NOTED YELLING IN SLOVENIAN. PATIENT IN STABLE CONDITION WAITING FOR TRANSPORTATION TO [facility]. ALL DUE MEDICATIONS ADMINISTERED. ALL NEEDS MET. ENDORSED CARE TO PM SHIFT. PATIENT REFUSED DISCHARGE PICTURED DESPITE MULTIPLE ATTEMPTS.
[2020-02-16 20:00] VITALS: BP 149/57
--- NOTE | 2020-02-16 20:00 | NUR ---
RN NOTE: REPORT GIVEN TO CLARA GLOVER FROM [facility].
--- NOTE | 2020-02-16 20:30 | NUR ---
FISHING GAME WARDEN NOTE: PATIENT PICKED UP BY 2 primer press operator VIA [facility]. V/S WITHIN PATIENT'S BASELINE PARAMETERS; TEMP 97.5F, HR 58, RR 20, O2 SAT 100%., BP 149/57. LIDA MIDLINE REMOVED, TOLERATED WELL. REPORT AND DISCHARGE PAPERWORK GIVEN TO EMT PERSONNEL. INVENTORY LIST SIGNED BY EMT DUE TO PATIENT UNABLE TO SIGN. PATIENT'S CELLPHONE WAS WITH PATIENT UPON DISCHARGE. OSWALD (DAUGHTER) MADE AWARE VIA PHONE CALL. PATIENT REFUSED PHOTOS OF SKIN ISSUES TAKEN. NO NEW SKIN ISSUES NOTED OTHER THAN PREVIOUSLY DOCUMENTED SACRAL SCARRING. PATIENT IN STABLE CONDITION AND NO ACUTE DISTRESS UPON DISCHARGE.
[2020-02-20 02:11] LABS: RENIN, PLASMA 0.252 ng/mL/hr (0.167-5.380)
== END 2020-02-16 23:26 | DRG 194 ==
LOC: ER 18:13 → TELE1 23:45
PROVIDERS: ADMIT Student in an Organized Health Care Education/Training Program; ATTEND Nurse Practitioner Acute Care
DX: I13.2 Hypertensive heart and chronic kidney disease with heart failure and with stage 5 chronic kidney disease, or end stage renal disease (principal); U07.1 COVID-19; D68.69 Other thrombophilia; E44.0 Moderate protein-calorie malnutrition; J12.89 Other viral pneumonia; E11.22 Type 2 diabetes mellitus with diabetic chronic kidney disease; E11.42 Type 2 diabetes mellitus with diabetic polyneuropathy; N18.6 End stage renal disease; E11.51 Type 2 diabetes mellitus with diabetic peripheral angiopathy without gangrene; I50.33 Acute on chronic diastolic (congestive) heart failure; I48.0 Paroxysmal atrial fibrillation; E87.1 Hypo-osmolality and hyponatremia; E87.5 Hyperkalemia; Z99.2 Dependence on renal dialysis; K21.9 Gastro-esophageal reflux disease without esophagitis; Z79.01 Long term (current) use of anticoagulants; Z79.4 Long term (current) use of insulin; Z79.82 Long term (current) use of aspirin; Z86.14 Personal history of Methicillin resistant Staphylococcus aureus infection; Z89.612 Acquired absence of left leg above knee; Z89.611 Acquired absence of right leg above knee; Z93.3 Colostomy status; Z68.25 Body mass index [BMI] 25.0-25.9, adult; Z79.899 Other long term (current) drug therapy; D63.8 Anemia in other chronic diseases classified elsewhere
CPT/HCPCS: 36410; 36415; 36600; 71045-TC; 80048-TC; 80053-TC; 80061-TC; 80074; 80076-TC; 82088; 82550-TC; 82728-TC; 82803-TC; 82962-TC; 83540-TC; 83605-TC; 83615-TC; 83735-TC; 84100-TC; 84244; 84439-TC; 84443-TC; 84484-TC; 85025-TC; 85730-TC; 86140-TC; 87040-TC; 87081-TC; 87806; 90935-TC; 93307-TC; A4216; A6403; G0378; J0456; J0610; J0696; J2185; J3370; J7030; J7050; J7060; P9047

== ENCOUNTER 2020-03-13 15:16 | Inpatient (IN) | payer MEDICAID ==
[~2020-03-13] VITALS: Ht 152.4 cm; Wt 58.1 kg
[~2020-03-13 15:16] MED LIST: ACET-2605 PO; ACET-868 PO; ACID1TAB12 PO; AMLO5TAB4 PO; ASCO-352 PO; ASPI-1169 PO; BENZ1TAB7 PO; CALC667T2 PO; CARB15DR EACHEYE; CLON0.1T PO; DIPH25CA83 PO; ESCI5TAB PO; FAMO20TA8 PO; FOLI0.4T2 PO; GABA-534 PO; HALO0.5T PO; INSU100V11 SQ; IPRA0.2S9 IH; LACT10SO PO; LEVA0.6320 IH; MIDO10TA PO; MULT-24 PO; ONDA4TAB5 PO; POLY17PO4 PO; RIVA10TA PO; SENN-261 PO
--- NOTE | 2020-03-13 15:30 | NUR ---
KIANNA FROM [facility] FISTULA FINISHED DIALYSIS. PATIENT A/OX1, SOUTH AFRICAN SPEAKING, BREATHING EVEN AND UNLABORED, NO SOB NOTED. MONCHO AV FISTULA DRESSING CLEAN DRY AND INTACT, NO S/SX OF BLEEDING NOTED.
[2020-03-13] MEDS ORDERED: HALOPERIDOL 1 MG TABLET PO ONE (16:00)
[2020-03-13] MEDS ORDERED: BENZTROPINE MESYLATE (1 MG) 1 MG TABLET PO ONE (16:00)
[2020-03-13] MEDS ORDERED: BENZTROPINE MESYLATE (2MG/2ML) 2 MG/2 ML AMPUL ONE (16:15)
[2020-03-13] MEDS ORDERED: HALOPERIDOL LACTATE INJ 5 MG/ML VIAL ONE (16:16)
[2020-03-13] MEDS ORDERED: DEXTROSE 50%-WATER 50 ML DISP.SYRIN IV ONE (16:30)
[2020-03-13] MEDS ORDERED: BENZTROPINE MESYLATE (2MG/2ML) 2 MG/2 ML AMPUL IM ONE (16:30)
[2020-03-13] MEDS ORDERED: HALOPERIDOL LACTATE INJ 5 MG/ML VIAL IM ONE (16:30)
--- NOTE | 2020-03-13 16:31 | NUR ---
CALLED NURSING SUP FOR TELE BED.
[2020-03-13 16:32] LABS: BASOPHILS # (AUTO) 0.1 /CMM (0.0-0.2); BASOPHILS % (AUTO) 2.3 % (0.0-2.0); EOSINOPHILS % (AUTO) 3.8 % (0.0-6.0); HEMATOCRIT 30 % (33-45); HEMOGLOBIN 9.4 g/dL (11.5-14.8); LYMPHOCYTES # (AUTO) 1.1 /CMM (0.8-4.8); LYMPHOCYTES % (AUTO) 36.2 % (20.0-44.0); MEAN CORPUSCULAR HGB CONC 31 g/dl (31.0-36.0); MEAN CORPUSCULAR VOLUME 98 fL (82-100); MONOCYTES # (AUTO) 0.5 /CMM (0.1-1.30); MONOCYTES % (AUTO) 15.3 % (2.0-12.0); NEUTROPHILS # (AUTO) 1.3 /CMM (1.8-8.9); NEUTROPHILS % (AUTO) 42.4 % (43.0-81.0); PLATELET COUNT (AUTO) 152 /CMM (150-450); RED BLOOD CELL COUNT(AUTO) 3.08 MIL/uL (4.0-5.2); WHITE BLOOD COUNT (AUTO) 3.1 K/uL (4.3-11.0)
[2020-03-13] MEDS ORDERED: DEXTROSE 50%-WATER 50 ML DISP.SYRIN ONE (16:33)
[2020-03-13 16:39] LABS: CALCIUM, SERUM 8.3 mg/dL (8.5-10.1); POTASSIUM 5.2 mmol/L (3.5-5.1)
[2020-03-13 16:40] LABS: CREATININE 10.2 mg/dL (0.6-1.3)
--- NOTE | 2020-03-13 17:04 | NUR ---
PATIENT RESTING, NO DISTRESS NOTED.
--- NOTE | 2020-03-13 17:10 | NUR ---
SHIRA/MED RECON. MEDICATION RECONCILIATION DONE/UPDATED. INFO OBTAINED FROM SHIRA PAK FROM [facility] [phone].
[2020-03-13 18:10] LABS: NEUTROPHILS % (MANUAL) 48 (42-76)
[2020-03-13 18:11] LABS: BAND % (MANUAL) 3 % (0.0-5.0); EOSINOPHILS % (MANUAL) 2 % (0-4); LYMPHOCYTES % (MANUAL) 32 % (16-48); MONOCYTES % (MANUAL) 15 % (0-11.0)
--- NOTE | 2020-03-13 19:32 | NUR ---
REPORT GIVEN TO ISABEL GLOVER FOR MAYCOL.
[2020-03-13 19:43] VITALS: BP 146/78
--- NOTE | 2020-03-13 19:46 | NUR ---
PATIENT TRANSFERRED TO ROOM 117-2 VIA ACLS PROTOCOL. NO DISTRESS NOTED. ENDORSED TO ISABEL GLOVER.
[2020-03-13] MEDS ORDERED: POLYETHYLENE GLYCOL 3350 17 GM POWD.PACK PO PRN (20:00)
[2020-03-13] MEDS ORDERED: diphenhydrAMINE HCL 25 MG CAPSULE PO PRN (20:00)
[2020-03-13] MEDS ORDERED: Medication Not On Formulary EA (Levalbuterol Hcl (Xopenex) 0.63 MG) IH PRN (20:00)
[2020-03-13] MEDS ORDERED: DEXTROSE 50%-WATER 50 ML DISP.SYRIN IV PRN (20:00)
[2020-03-13] MEDS ORDERED: ACETAMINOPHEN 325 MG TABLET PO PRN (20:00)
[2020-03-13] MEDS ORDERED: CLONIDINE HCL 0.1 MG TABLET PO PRN (20:00)
--- NOTE | 2020-03-13 20:04 | NUR ---
RN NOTES OSWALD STEVENS DAUGHTER CALLED. HER NAME IS NOT ON THE FACE SHEET NEXT OF KIN. EXPLAINED TO HER THAT I NEED TO ASK PERMISSION FROM KENA, WHO IS LISTED NEXT OF KIN. SPOKE TO KENA, VERBAL CONSENT OBTAINED TO GIVE INFORMATION TO OSWALD. ALSO GOT A CONSENT TO RESTRAINT PATIENT SINCE SHE HAS BEEN AGITATED, YELLING AND PULLING OUT TUBES/TELE SINCE SHE CAME. BOTH DAUGHTERS MADE AWARE ABOUT PENDING COVID RESULT EVEN IF SHE WAS NEGATIVE IN JANUARY FROM THE FACILITY . CONCERNED ABOUT GETTING THE VIRUS AGAIN. REASSURED THEM THAT WE WILL MONITOR THE RESULT AND TRANSFER OUT OF THE UNIT ONCE IT IS NEGATIVE AND THAT SHE IS BY HERSELF IN THE ROOM UNTIL RESULT COMES OUT. PRIMARY RN TESSIE MADE AWARE
[2020-03-13] MEDS ORDERED: MORPHINE SULFATE INJ 2 MG/ML DISP.SYRIN IV PRN (20:30)
[2020-03-13] MEDS ORDERED: ACETAMINOPHEN ES 500 MG TABLET PO PRN (20:30)
[2020-03-13] MEDS ORDERED: IPRATROPIUM/ALBUTEROL INHALER IH PRN (20:30)
[2020-03-13] MEDS ORDERED: HYDROCODONE/APAP 5/325MG 1 EACH TABLET PO PRN (20:30)
[2020-03-13] MEDS ORDERED: ONDANSETRON HCL/PF 4 MG/2 ML VIAL IVP PRN (20:30)
[2020-03-13] MEDS ORDERED: MAG HYDROX/AL HYDROX/SIMETH 30 ML UDC PO PRN (20:30)
[2020-03-13] MEDS ORDERED: ZOLPIDEM TARTRATE 5 MG TABLET PO PRN (20:30)
[2020-03-13] MEDS ORDERED: MAGNESIUM HYDROXIDE 30 ML UDC PO PRN (20:30)
[2020-03-13] MEDS ORDERED: ONDANSETRON 4 MG TAB.RAPDIS PO PRN (20:30)
[2020-03-13] MEDS ORDERED: SODIUM POLYSTYRENE SULFONATE 15 G/60 ML BOTTLE PO ONE (20:30)
[2020-03-13] MEDS ORDERED: Z GUARD REMEDY 2 OZ OINT TP PRN (20:30)
[2020-03-13] MEDS: HALOPERIDOL 1 MG TABLET PO SCH (22:00)
[2020-03-13] MEDS: CARBOXYMETHYLCELLULOSE SODIUM 1 EA TUBE OP SCH (22:00)
[2020-03-13] MEDS: AMLODIPINE BESYLATE 5 MG TABLET PO SCH (22:01)
[2020-03-13] MEDS: BLOOD SUGAR DIAGNOSTIC 1 EACH STRIP VI SCH (22:36)
[2020-03-13] MEDS: *INSULIN REGULAR(HUMULIN R)HUM 100 UNIT/ML VIAL SQ PRN (22:37)
[2020-03-13 23:00] VITALS: BP_SYST 146; BP_SYST 16; BP_DIAS 78
[2020-03-14] VITALS: BP_SYST 155; BP_SYST 156; BP_DIAS 70
[2020-03-14 04:00] VITALS: BP 165/76
--- NOTE | 2020-03-14 07:05 | NUR ---
rn notes received patient awake via stretcher accompanied by 2 staff in stable condition. vital signs wnl. admitted to rule out covid 19 and because of the malfunctioning of the av fistula. alert and oriented but very agitated, pulling out tubings. got order for bilateral wrist restraint, applied and reposition every two hours for comfort and circulation, verbally able to communicate needs (south african speaking). no complaint of pain or discomfort. in no apparent distress, breathing even and unlabored. kept clean and dry. will endorse to next shift for continuity of care
[2020-03-14] MEDS ORDERED: FAMOTIDINE (20 MG) 20 MG TABLET PO SCH (07:30)
--- NOTE | 2020-03-14 07:30 | NUR ---
Tele/RN Opening note Received patient oriented to self, confuse, able to responds all stimuli. Pt does no appears pain or any discomfort, skin is warm to touch, kept clean/dry, intact IV site. Respiratory even and unlabored with room air, no sob or distress observed. Keep low portion of the bed with locked wheel and elevated head of bed. Call light within reach, will continue to monitor.
[2020-03-14] MEDS: BLOOD SUGAR DIAGNOSTIC 1 EACH STRIP VI SCH ×4 (07:37→22:45)
[2020-03-14] MEDS: CALCIUM ACETATE 667 MG TABLET PO SCH ×3 (07:37→17:30)
[2020-03-14] MEDS: PANTOPRAZOLE 40 MG TABLET.DR PO SCH (07:37)
[2020-03-14 07:43] LABS: BASOPHILS # (AUTO) 0.1 /CMM (0.0-0.2); BASOPHILS % (AUTO) 2.2 % (0.0-2.0); EOSINOPHILS % (AUTO) 4.7 % (0.0-6.0); HEMATOCRIT 32 % (33-45); LYMPHOCYTES # (AUTO) 0.8 /CMM (0.8-4.8); LYMPHOCYTES % (AUTO) 31.1 % (20.0-44.0); MEAN CORPUSCULAR HGB CONC 31 g/dl (31.0-36.0); MEAN CORPUSCULAR VOLUME 97 fL (82-100); MONOCYTES # (AUTO) 0.4 /CMM (0.1-1.30); MONOCYTES % (AUTO) 15.6 % (2.0-12.0); NEUTROPHILS # (AUTO) 1.3 /CMM (1.8-8.9); NEUTROPHILS % (AUTO) 46.4 % (43.0-81.0); PLATELET COUNT (AUTO) 150 /CMM (150-450); RED BLOOD CELL COUNT(AUTO) 3.27 MIL/uL (4.0-5.2); WHITE BLOOD COUNT (AUTO) 2.7 K/uL (4.3-11.0)
[2020-03-14 08:00] VITALS: BP_SYST 133; BP_SYST 140; BP_DIAS 76; BP_DIAS 78
[2020-03-14 08:12] LABS: ALBUMIN 3.1 g/dL (3.4-5.0); BILIRUBIN,TOTAL 0.3 mg/dL (0.2-1.0); CALCIUM, SERUM 8.3 mg/dL (8.5-10.1); MAGNESIUM 2.7 mg/dL (1.8-2.4); PHOSPHORUS 4.6 mg/dL (2.5-4.9); POTASSIUM 5.5 mmol/L (3.5-5.1); TOTAL PROTEIN, SERUM 7.8 g/dL (6.4-8.2)
[2020-03-14 08:27] LABS: CREATININE 11.3 mg/dL (0.6-1.3)
[2020-03-14] MEDS: ESCITALOPRAM OXALATE (10 MG) 10 MG TABLET PO SCH (08:47)
[2020-03-14] MEDS: ASCORBIC ACID 500 MG TABLET PO SCH (08:47)
[2020-03-14] MEDS: BENZTROPINE MESYLATE (1 MG) 1 MG TABLET PO SCH (08:47)
[2020-03-14] MEDS: LACTULOSE 10 G/15 ML UDC (PYXIS) PO SCH ×2 (08:47→17:00)
[2020-03-14] MEDS: GABAPENTIN 300 MG CAPSULE PO SCH (08:48)
[2020-03-14] MEDS: ACIDOPHILUS/BULGARICUS 1 EACH TAB.CHEW PO SCH (08:48)
[2020-03-14] MEDS: MULTIVITAMINS,THERAGRAN 1 UDTAB TABLET PO SCH (08:48)
[2020-03-14] MEDS: HALOPERIDOL 1 MG TABLET PO SCH ×2 (08:48→20:27)
[2020-03-14] MEDS: ASPIRIN 81 MG TAB.CHEW PO SCH (08:49)
[2020-03-14] MEDS: SENNOSIDES 8.6 MG TABLET PO SCH ×2 (08:49→17:00)
[2020-03-14] MEDS: RIVAROXABAN 10 MG TABLET PO SCH (08:50)
[2020-03-14] MEDS: FOLIC ACID 1 MG TABLET PO SCH (08:50)
[2020-03-14] MEDS ORDERED: MIDODRINE HCL (5MG) 5 MG TABLET PO PRN (09:00)
[2020-03-14] MEDS: CARBOXYMETHYLCELLULOSE SODIUM 1 EA TUBE OP SCH ×4 (09:17→20:28)
[2020-03-14 09:20] LABS: THYROID STIMULATING HORMONE 0.516 uIU/mL (0.358-3.74)
[2020-03-14 12:00] VITALS: BP_SYST 128; BP_SYST 134; BP_DIAS 56; BP_DIAS 70
--- NOTE | 2020-03-14 12:00 | NUR ---
Patient noticed BS was 68 before lunch, given apple juice but pt refused recheck BS in 30 min. Checked again at evening was 73mg/dL Informed Dr. Hernández
[2020-03-14 16:00] VITALS: BP 133/72
--- NOTE | 2020-03-14 18:50 | NUR ---
Tele/RN Closing note Patient in bed, confuse, does no c/o pain or discomfort, skin is warm to touch, kept clean/dry, given skin care and repositioning during day time. Respiratory even and unlabored O2sat 98% with room air. Kept low position of the bed with lock wheel and elevated head of bed for secure airway. Pt refused blood sugar check and medication at evening. Call light within reach, will continue to endorse shift superintendent caustic cresylate.
[2020-03-14 20:00] VITALS: BP 133/52
--- NOTE | 2020-03-14 21:27 | NUR ---
2126 SPOKE WITH PATIENT'S DAUGHTER OSWALD AND UPDATED HER ON PATIENT'S CONDITION WITH ALL HER QUESTIONS ANSWERED.
[2020-03-14] MEDS: AMLODIPINE BESYLATE 5 MG TABLET PO SCH (22:24)
[2020-03-14] MEDS: *INSULIN REGULAR(HUMULIN R)HUM 100 UNIT/ML VIAL SQ PRN (22:46)
[2020-03-15] VITALS: BP 142/55
[2020-03-15 04:00] VITALS: BP 133/64
--- NOTE | 2020-03-15 06:27 | NUR ---
rn notes in bed resting comfortably . vital signs wnl. admitted to rule out covid 19 and because of the malfunctioning of the av fistula. alert and oriented but very agitated, pulling out tubings. got order for bilateral wrist restraint, applied and reposition every two hours for comfort and circulation, verbally able to communicate needs (moroccan speaking). no complaint of pain or discomfort. in no apparent distress, breathing even and unlabored. kept clean and dry. will endorse to next shift for continuity of care
--- NOTE | 2020-03-15 06:28 | NUR ---
rn notes resting comfortably in bed. vital signs wnl. alert and oriented with episodes of agitations, pulling out tubings and shouting. On bilateral wrist restraint, reposition every two hours for comfort and circulation, verbally able to communicate needs (romanian speaking). no complaint of pain or discomfort. no apparent distress, breathing even and unlabored. Lab called for negative covid 19 result. kept clean and dry. will endorse to next shift for continuity of care
--- NOTE | 2020-03-15 07:20 | NUR ---
rn opening notes Patient received on 2L nasal cannula, no sob noted, patient shows no s/s of pain at this time. Agitated Pacemaker RCW present with RFA 22. bed at the lowest setting, call light within reach, side rails up x2.
[2020-03-15] MEDS: BLOOD SUGAR DIAGNOSTIC 1 EACH STRIP VI SCH ×4 (07:30→22:26)
[2020-03-15 07:38] LABS: BASOPHILS # (AUTO) 0.1 /CMM (0.0-0.2); BASOPHILS % (AUTO) 2.1 % (0.0-2.0); EOSINOPHILS % (AUTO) 4.2 % (0.0-6.0); HEMATOCRIT 30 % (33-45); HEMOGLOBIN 9.3 g/dL (11.5-14.8); LYMPHOCYTES % (AUTO) 29.4 % (20.0-44.0); MEAN CORPUSCULAR HGB CONC 31 g/dl (31.0-36.0); MEAN CORPUSCULAR VOLUME 100 fL (82-100); MONOCYTES # (AUTO) 0.4 /CMM (0.1-1.30); NEUTROPHILS # (AUTO) 1.9 /CMM (1.8-8.9); NEUTROPHILS % (AUTO) 53.3 % (43.0-81.0); PLATELET COUNT (AUTO) 108 /CMM (150-450); WHITE BLOOD COUNT (AUTO) 3.5 K/uL (4.3-11.0)
[2020-03-15 07:51] LABS: CALCIUM, SERUM 7.8 mg/dL (8.5-10.1); MAGNESIUM 2.9 mg/dL (1.8-2.4); PHOSPHORUS 6.2 mg/dL (2.5-4.9)
[2020-03-15 08:00] VITALS: BP_SYST 130; BP_SYST 133; BP_DIAS 64
[2020-03-15 08:01] LABS: CREATININE 11.9 mg/dL (0.6-1.3); POTASSIUM 6.7 mmol/L (3.5-5.1)
[2020-03-15] MEDS: GABAPENTIN 300 MG CAPSULE PO SCH (08:09)
[2020-03-15] MEDS: BENZTROPINE MESYLATE (1 MG) 1 MG TABLET PO SCH (08:09)
[2020-03-15] MEDS: CALCIUM ACETATE 667 MG TABLET PO SCH ×3 (08:09→18:04)
[2020-03-15] MEDS: ASPIRIN 81 MG TAB.CHEW PO SCH (08:09)
[2020-03-15] MEDS: FOLIC ACID 1 MG TABLET PO SCH (08:09)
[2020-03-15] MEDS: PANTOPRAZOLE 40 MG TABLET.DR PO SCH (08:09)
[2020-03-15] MEDS: LACTULOSE 10 G/15 ML UDC (PYXIS) PO SCH ×2 (08:09→18:04)
[2020-03-15] MEDS: ACIDOPHILUS/BULGARICUS 1 EACH TAB.CHEW PO SCH (08:09)
[2020-03-15] MEDS: MULTIVITAMINS,THERAGRAN 1 UDTAB TABLET PO SCH (08:10)
[2020-03-15] MEDS: ASCORBIC ACID 500 MG TABLET PO SCH (08:10)
[2020-03-15] MEDS: ESCITALOPRAM OXALATE (10 MG) 10 MG TABLET PO SCH (08:10)
[2020-03-15] MEDS: SENNOSIDES 8.6 MG TABLET PO SCH ×2 (08:10→18:04)
[2020-03-15] MEDS: HALOPERIDOL 1 MG TABLET PO SCH ×2 (08:10→20:41)
[2020-03-15] MEDS: RIVAROXABAN 10 MG TABLET PO SCH (08:11)
[2020-03-15] MEDS: CARBOXYMETHYLCELLULOSE SODIUM 1 EA TUBE OP SCH ×4 (08:15→20:39)
--- NOTE | 2020-03-15 10:53 | NUR ---
rn notes Patient transferred to , MAYCOL to Ned GLOVER.
--- NOTE | 2020-03-15 11:00 | NUR ---
TELE OPENING NOTES RECEIVED PATIENT FROM [facility], IN BED, CONFUSED, 02 AT 2LPM, NO SIGNS OF RESPIRATORY DISTRESS, PACEMAKER RIGHT CHEST WALL, RFA #22, AV FISTULA MONCHO.
[2020-03-15] MEDS ORDERED: SODIUM POLYSTYRENE SULFONATE 15 G/60 ML BOTTLE PO ONE ×2 (13:30→23:00)
--- NOTE | 2020-03-15 16:15 | NUR ---
MID LEVEL JAVA DEVELOPER NOTES SODIUM POLYSTYRENE SULFONATE 30G NOT GIVEN. PATIENT'S POTASSIUM LEVEL IS 2.1.
--- NOTE | 2020-03-15 16:30 | NUR ---
PLATEN PRESS OPERATOR NOTES LAB REPORTED POTASSIUM LEVEL IS 2.1. ADVISED LAB TO DO AGAIN BLOOD EXTRACTION.
--- NOTE | 2020-03-15 16:59 | NUR ---
ASSOCIATE DEAN OF WOMEN NOTES TRUCKER HAND'S WASN'T ABLE TO EXTRACT BLOOD FOR LAB., PATIENT WAS HITTING THE TRUCKER HAND. PATIENT REFUSED BLOOD EXTRACT.
[2020-03-15 19:30] VITALS: BP 132/81
--- NOTE | 2020-03-15 19:30 | NUR ---
EDUCATION MANAGERS NOTES PATIENT CONTINUED TO BE UNCOOPERATIVE, UNABLE TO DRAW LABS. ASK TO COME BACK ONCE PT IS NO LONGER AGITATED.
--- NOTE | 2020-03-15 19:33 | NUR ---
AUTOMOTIVE FUEL INJECTION SERVICER NOTES PATIENT IN BED, ALERT AND ORIENTED X 0. PT CONTINUES TO BE AGITATED. BREATHING EVEN AND UNLABORED ON 2L NC. SHOWS NO SIGNS OF ACUTE RESPIRATORY DISTRESS. NO ACUTE PAIN. IV ON RFA 22G ITS CLEAN DRY AND INTACT. SHOWS NO SIGNS OF INFILTRATION NO REDNESS. SAFETY PRECAUTIONS IN PLACE. BED IN LOWEST POSITION, LOCKED, AND CALL LIGHT KEPT WITHIN REACH. WILL CONTINUE TO MONITOR.
--- NOTE | 2020-03-15 19:37 | NUR ---
MULTI MISSION HELICOPTER AIRCREWMAN CLOSING NOTES ENDORSED PATIENT TO POWDER LINE REPAIRER NURSE IN BED, CONFUSED, AGITATED, O2 AT 2LPM VIA NASAL CANNULA, NO SIGNS OF RESPIRATORY DISTRESS, RIGHT CHEST WALL PACEMAKER, MONCHO AV FISTULA, RFA #22G, NO REDNESS OR INFILTRATION NOTED, SIDE RAILS UP FOR SAFETY.
[2020-03-15 20:00] VITALS: BP 132/81
[2020-03-15 21:58] LABS: CALCIUM, SERUM 7.7 mg/dL (8.5-10.1); POTASSIUM 5.9 mmol/L (3.5-5.1)
[2020-03-15 22:03] LABS: CREATININE 11.8 mg/dL (0.6-1.3)
--- NOTE | 2020-03-15 22:05 | NUR ---
CYBER SYSTEMS OPERATIONS SPECIALIST NOTES RECEIVED CALL FROM LAB 5.9 POTASSIUM. WILL NOTIFY
--- NOTE | 2020-03-15 22:15 | NUR ---
CARTON INSPECTOR NOTES RECEIVED ORDER FROM TO GIVEN KAYEXALATE 30G PO. WILL CONTINUE TO MONITOR.
[2020-03-15] MEDS: AMLODIPINE BESYLATE 5 MG TABLET PO SCH (22:45)
[2020-03-16] VITALS: BP 117/84
[2020-03-16] MEDS ORDERED: SODIUM POLYSTYRENE SULFONATE 15 G/60 ML BOTTLE RC ONE
[2020-03-16] MEDS ORDERED: CALCIUM CHLORIDE 1,000 MG/10 ML DISP.SYRIN IV ONE (02:00)
[2020-03-16] MEDS ORDERED: INSULIN REGULAR, HUMAN 100 UNIT/ML 3 ML VIAL IV ONE (02:00)
--- NOTE | 2020-03-16 02:00 | NUR ---
PHOTOGRAPHIC PLATE MAKER NOTES PT IS REFUSING TO KAYEXALATE PO ONLY RECEIVED 15G OF 30G. RECEIVED ORDER FOR RECTAL KAYEXALATE, PT REFUSING TO TURN TO THE SIDE. RETRIED GIVING KAYEXALATE PO AND PT IS SPITTING OUT MEDICATION. AWARE.
--- NOTE | 2020-03-16 02:15 | NUR ---
MOLD DESIGN ENGINEER ORDERED CALCIUM CHLORIDE AND IV INSULIN. HOWEVER, IV INSULIN CANNOT BE GIVEN ON THIS FLOOR. MD MADE AWARE AND CANCELLED MED ORDERS, ORDERED TO WAITING FOR MORNING LABS AND ATTEMPT TO GIVE KAYEXALATE.
[2020-03-16] MEDS ORDERED: SODIUM POLYSTYRENE SULFONATE 15 G/60 ML BOTTLE PO ONE (03:00)
[2020-03-16 04:00] VITALS: BP 148/66
[2020-03-16] MEDS: BLOOD SUGAR DIAGNOSTIC 1 EACH STRIP VI SCH ×4 (06:36→21:59)
--- NOTE | 2020-03-16 06:36 | NUR ---
HOT WORT SETTLER NOTES PATIENT IN BED, ALERT AND ORIENTED X 0. PT CONTINUES TO BE AGITATED. BREATHING EVEN AND UNLABORED ON 2L NC. SHOWS NO SIGNS OF ACUTE RESPIRATORY DISTRESS. NO ACUTE PAIN.TELE MONITOR SR WITH PVC. IV ON RFA 22G ITS CLEAN DRY AND INTACT. SHOWS NO SIGNS OF INFILTRATION NO REDNESS. ALL DUE MEDICATIONS GIVEN. SAFETY PRECAUTIONS IN PLACE. BED IN LOWEST POSITION, LOCKED, AND CALL LIGHT KEPT WITHIN REACH. WILL ENDORSE TO ONCOMING NURSE.
[2020-03-16 07:30] LABS: CALCIUM, SERUM 7.5 mg/dL (8.5-10.1); POTASSIUM 5.4 mmol/L (3.5-5.1)
[2020-03-16 07:32] LABS: BASOPHILS % (AUTO) 0.9 % (0.0-2.0); CREATININE 11.6 mg/dL (0.6-1.3); EOSINOPHILS % (AUTO) 4.3 % (0.0-6.0); HEMATOCRIT 28 % (33-45); LYMPHOCYTES # (AUTO) 1.1 /CMM (0.8-4.8); LYMPHOCYTES % (AUTO) 38.5 % (20.0-44.0); MEAN CORPUSCULAR HGB CONC 32 g/dl (31.0-36.0); MEAN CORPUSCULAR VOLUME 96 fL (82-100); MONOCYTES # (AUTO) 0.5 /CMM (0.1-1.30); MONOCYTES % (AUTO) 17.9 % (2.0-12.0); NEUTROPHILS # (AUTO) 1.1 /CMM (1.8-8.9); NEUTROPHILS % (AUTO) 38.4 % (43.0-81.0); PLATELET COUNT (AUTO) 115 /CMM (150-450); RED BLOOD CELL COUNT(AUTO) 2.96 MIL/uL (4.0-5.2)
[2020-03-16] MEDS: PANTOPRAZOLE 40 MG TABLET.DR PO SCH (07:59)
[2020-03-16 08:00] VITALS: BP 137/54
[2020-03-16] MEDS: CALCIUM ACETATE 667 MG TABLET PO SCH ×3 (08:00→18:00)
--- NOTE | 2020-03-16 08:00 | NUR ---
CHIEF METER READER OPENING NOTES RECEIVED PATIENT IN BED, AWAKE, AGITATED, CONFUSED, 02 AT 2LPM VIA NASAL CANNULA, UNLABORED BREATHING, NO SIGNS OF RESPIRATORY DISTRESS, WITH RESTRAINT AT RIGHT WRIST/HAND, SIDE RAILS UP.
[2020-03-16] MEDS: ESCITALOPRAM OXALATE (10 MG) 10 MG TABLET PO SCH (08:05)
[2020-03-16] MEDS: HALOPERIDOL 1 MG TABLET PO SCH ×2 (08:05→21:26)
[2020-03-16] MEDS: CARBOXYMETHYLCELLULOSE SODIUM 1 EA TUBE OP SCH ×4 (09:06→21:26)
[2020-03-16] MEDS: SENNOSIDES 8.6 MG TABLET PO SCH ×2 (09:07→17:00)
[2020-03-16] MEDS: GABAPENTIN 300 MG CAPSULE PO SCH (09:07)
[2020-03-16] MEDS: LACTULOSE 10 G/15 ML UDC (PYXIS) PO SCH ×2 (09:07→17:00)
[2020-03-16] MEDS: ASCORBIC ACID 500 MG TABLET PO SCH (09:07)
[2020-03-16] MEDS: ASPIRIN 81 MG TAB.CHEW PO SCH (09:07)
[2020-03-16] MEDS: MULTIVITAMINS,THERAGRAN 1 UDTAB TABLET PO SCH (09:08)
[2020-03-16] MEDS: FOLIC ACID 1 MG TABLET PO SCH (09:08)
[2020-03-16] MEDS: ACIDOPHILUS/BULGARICUS 1 EACH TAB.CHEW PO SCH (09:08)
[2020-03-16] MEDS: BENZTROPINE MESYLATE (1 MG) 1 MG TABLET PO SCH (09:08)
[2020-03-16] MEDS: RIVAROXABAN 10 MG TABLET PO SCH (09:10)
--- NOTE | 2020-03-16 13:00 | NUR ---
BAR HOST NOTES MEDS NOT GIVEN. PATIENT REFUSED. PATIENT IS ALSO AGITATED AND COMBATIVE.
[2020-03-16 16:00] VITALS: BP 139/76
--- NOTE | 2020-03-16 17:00 | NUR ---
OUTPATIENT THERAPIST NOTES MEDICATION NOT GIVEN. PATIENT REFUSED AND COMBATIVE.
--- NOTE | 2020-03-16 18:00 | NUR ---
PUBLIC POLICY COORDINATOR NOTES PATIENT REFUSED MEDICATION.
--- NOTE | 2020-03-16 19:38 | NUR ---
BORING MACHINE SET UP OPERATOR CLOSING NOTES ENDORSED PATIENT TO IT APPLICATIONS ANALYST NURSE IN BED, UNCOOPERATIVE, WITH O2 @ 2LPM VIA NASAL CANNULA, NO SIGNS OF RESPIRATORY DISTRESS, RIGHT CW PACEMAKER, LEFT AV FISTULA, NO SIGNS OF BLEEDING, RFA #22, NO SIGNS OF REDNESS OR INFILTRATION NOTED, OSTOMY ATTACHED TO PATIENT, SIDE RAILS UP FOR SAFETY.
--- NOTE | 2020-03-16 19:55 | NUR ---
RN NOTES RECEIVED PATIENT AWAKE, ALERT, RESTING COMFORTABLY AT THIS TIME, REPOSITIONED FOR COMFORT, KEEP ON O2 @ 2LPM VIA NASAL CANNULA, NO SIGNS OF RESPIRATORY DISTRESS NOTED, RIGHT CW PACEMAKER, LEFT AV FISTULA, NO SIGNS OF BLEEDING, RFA #22, NO SIGNS OF REDNESS OR INFILTRATION NOTED, OSTOMY AND COLOSTOMY BAG ATTACHED TO PATIENT NOTED WITH LARGE AMOUNT OUTPUT. SAFETY MEASURES IN PLACE, ASPIRATION PRECAUTION EMPHASIZED, SIDE RAILS UP, BED IN LOW LOCKED POSITION, CALL LIGHT WITH IN EASY REACH, WITH RIGHT SOFT WRIST RESTRAINT IN PLACED, ASSESSED FOR ADEQUATE CIRCULATION. ALL NEEDS ANTICIPATED. WILL CONTINUE TO MONITOR ACCORDINGLY.
[2020-03-16 20:00] VITALS: BP 162/62
[2020-03-16] MEDS: AMLODIPINE BESYLATE 5 MG TABLET PO SCH (21:59)
[2020-03-17] MEDS: BLOOD SUGAR DIAGNOSTIC 1 EACH STRIP VI SCH ×4 (07:05→21:33)
[2020-03-17 07:10] LABS: BASOPHILS % (AUTO) 1.5 % (0.0-2.0); EOSINOPHILS % (AUTO) 5.6 % (0.0-6.0); HEMATOCRIT 30 % (33-45); HEMOGLOBIN 9.4 g/dL (11.5-14.8); LYMPHOCYTES # (AUTO) 1.1 /CMM (0.8-4.8); LYMPHOCYTES % (AUTO) 33.5 % (20.0-44.0); MEAN CORPUSCULAR HGB CONC 32 g/dl (31.0-36.0); MEAN CORPUSCULAR VOLUME 97 fL (82-100); MONOCYTES # (AUTO) 0.4 /CMM (0.1-1.30); MONOCYTES % (AUTO) 12.8 % (2.0-12.0); NEUTROPHILS # (AUTO) 1.5 /CMM (1.8-8.9); NEUTROPHILS % (AUTO) 46.6 % (43.0-81.0); PLATELET COUNT (AUTO) 112 /CMM (150-450); RED BLOOD CELL COUNT(AUTO) 3.05 MIL/uL (4.0-5.2); WHITE BLOOD COUNT (AUTO) 3.2 K/uL (4.3-11.0)
--- NOTE | 2020-03-17 07:12 | NUR ---
RN NOTES ALL NEEDS ATTENDED AND MET. ABLE TO REST AND SLEPT WITH LONG INTERVALS. PATIENT RESTING COMFORTABLY AT THIS TIME, REPOSITIONED FOR COMFORT, KEEP ON O2 @ 2LPM VIA NASAL CANNULA, SATING 99%, NO SIGNS OF RESPIRATORY DISTRESS NOTED, RIGHT CW PACEMAKER, LEFT AV FISTULA, NO SIGNS OF BLEEDING, RFA #22, NO SIGNS OF REDNESS OR INFILTRATION NOTED, OSTOMY AND COLOSTOMY BAG ATTACHED TO PATIENT NOTED WITH OUTPUT MINIMAL AMOUNT AT THIS TIME. TOTAL OUTPUT ON MY SHIFT IS 400 ML. SAFETY MEASURES IN PLACE, ASPIRATION PRECAUTION EMPHASIZED, SIDE RAILS UP, BED IN LOW LOCKED POSITION, CALL LIGHT WITH IN EASY REACH, WITH RIGHT SOFT WRIST RESTRAINT IN PLACED, ASSESSED FOR ADEQUATE CIRCULATION. ALL NEEDS ANTICIPATED. WILL ENDORSE TO AM NURSE FOR CONTINUITY OF CARE.
[2020-03-17 07:33] LABS: ALBUMIN 2.9 g/dL (3.4-5.0); BILIRUBIN,TOTAL 0.4 mg/dL (0.2-1.0); CALCIUM, SERUM 7.4 mg/dL (8.5-10.1); MAGNESIUM 2.8 mg/dL (1.8-2.4); PHOSPHORUS 6.8 mg/dL (2.5-4.9); POTASSIUM 6.1 mmol/L (3.5-5.1); TOTAL PROTEIN, SERUM 7.3 g/dL (6.4-8.2)
--- NOTE | 2020-03-17 07:35 | NUR ---
MS/RN NOTE THE PATIENT IS RECEIVED IN BED. THE PATIENT IS ALERT AND ORIENTED TO SELF. ABLE TO COMMUNICATE VERBALLY. IN ROOM AIR AND DENIES SOB. RESPIRATION REGULAR AND UNLABORED. DENIES PAIN. THE PATIENT HAS RIGHT SOFT-WRIST RESTRAIN. ASSESSED AND NO S/S POOR CIRCULATION AND NO S/S SKIN BREAKDOWN NOTED. STOMA COLLECTION BAG NOTED WITH YELLOW LIQUID STOOL. RIGHT FA G 22 PATENT AND SALINE LOCKED. RCW HD CATH PRESENT. BED LOW AND LOCKED. SIDE RAILS UP X3. CALL LIGHT WITHIN REACH. WILL CONTINUE TO MONITOR.
[2020-03-17 07:37] LABS: CREATININE 13.4 mg/dL (0.6-1.3)
[2020-03-17 08:00] VITALS: BP 123/51
[2020-03-17] MEDS: LACTULOSE 10 G/15 ML UDC (PYXIS) PO SCH ×2 (09:03→17:58)
[2020-03-17] MEDS: CALCIUM ACETATE 667 MG TABLET PO SCH ×3 (09:03→17:58)
[2020-03-17] MEDS: SENNOSIDES 8.6 MG TABLET PO SCH ×2 (09:03→17:58)
[2020-03-17] MEDS: ESCITALOPRAM OXALATE (10 MG) 10 MG TABLET PO SCH (09:04)
[2020-03-17] MEDS: FOLIC ACID 1 MG TABLET PO SCH (09:04)
[2020-03-17] MEDS: GABAPENTIN 300 MG CAPSULE PO SCH (09:04)
[2020-03-17] MEDS: ACIDOPHILUS/BULGARICUS 1 EACH TAB.CHEW PO SCH (09:04)
[2020-03-17] MEDS: ASCORBIC ACID 500 MG TABLET PO SCH (09:04)
[2020-03-17] MEDS: ASPIRIN 81 MG TAB.CHEW PO SCH (09:04)
[2020-03-17] MEDS: MULTIVITAMINS,THERAGRAN 1 UDTAB TABLET PO SCH (09:04)
[2020-03-17] MEDS: BENZTROPINE MESYLATE (1 MG) 1 MG TABLET PO SCH (09:04)
[2020-03-17] MEDS: HALOPERIDOL 1 MG TABLET PO SCH ×2 (09:05→21:33)
[2020-03-17] MEDS: RIVAROXABAN 10 MG TABLET PO SCH (09:07)
[2020-03-17] MEDS: PANTOPRAZOLE 40 MG TABLET.DR PO SCH (09:14)
--- NOTE | 2020-03-17 10:57 | NUR ---
MS/RN NOTE STILL WAITING FOR THE PHARMACY TO DELIVER REFRESH CELLUVISC DUE AT 0900. FOLLOW UP CALLS WERE MADE.
[2020-03-17] MEDS: CARBOXYMETHYLCELLULOSE SODIUM 1 EA TUBE OP SCH ×3 (13:51→21:40)
[2020-03-17] MEDS: INSULIN REGULAR, HUMAN 100 UNIT/ML 3 ML VIAL SQ PRN (13:53)
[2020-03-17 16:00] VITALS: BP 139/65
--- NOTE | 2020-03-17 18:10 | NUR ---
MS/RN NOTE THE PATIENT IS NOTED TO HAVE MISSING UPPER TEETH. RECEIVED ORDER FROM DR SCHROEDER TO CHANGE DIET ORDER TEXTURE TO FINELY CHOPPED. NOTED AND CARRIED OUT.
--- NOTE | 2020-03-17 19:07 | NUR ---
MS/RN NOTE THE PATIENT IS ALERT AND ORIENTED TO SELF. PATIENT IN NO APPARENT DISTRESS. DENIES PAIN. IN ROOM AIR AND SATURATION IS AT 97%. DENIES SOB. RESPIRATION REGULAR AND UNLABORED. PATIENT GOT DIALYSIS TODAY WITH 0 OUTPUT. RFA G 22 PATENT AND SALINE LOCKED. BED LOW AND LOCKED. SIDE RAILS UP X3. CALL LIGHT WITHIN REACH. WILL ENDORSE TO GEOLOGICAL MANAGER.
[2020-03-17 20:00] VITALS: BP 154/60
[2020-03-17] MEDS: AMLODIPINE BESYLATE 5 MG TABLET PO SCH (21:31)
[2020-03-17] MEDS: *INSULIN REGULAR(HUMULIN R)HUM 100 UNIT/ML VIAL SQ PRN (21:34)
--- NOTE | 2020-03-17 21:35 | NUR ---
bs 146 . insulin held patient has history of having poor appetite. will cont to monitor
--- NOTE | 2020-03-18 00:51 | NUR ---
RESTRAINTS REMOVED/DISCONTINUED. restraints discontinued. patient not seen trying to remove lines. will cont to monitor for change in behavior that poses risk for injury or disruption of medical treatment.
[2020-03-18] MEDS: BLOOD SUGAR DIAGNOSTIC 1 EACH STRIP VI SCH ×4 (06:26→22:55)
[2020-03-18 08:00] VITALS: BP 129/61
[2020-03-18] MEDS: ASCORBIC ACID 500 MG TABLET PO SCH (08:49)
[2020-03-18] MEDS: FOLIC ACID 1 MG TABLET PO SCH (08:49)
[2020-03-18] MEDS: BENZTROPINE MESYLATE (1 MG) 1 MG TABLET PO SCH (08:51)
[2020-03-18] MEDS: PANTOPRAZOLE 40 MG TABLET.DR PO SCH (08:52)
[2020-03-18] MEDS: ACIDOPHILUS/BULGARICUS 1 EACH TAB.CHEW PO SCH (08:52)
[2020-03-18] MEDS: RIVAROXABAN 10 MG TABLET PO SCH (08:56)
[2020-03-18] MEDS: HALOPERIDOL 1 MG TABLET PO SCH ×2 (08:56→21:35)
[2020-03-18] MEDS: ESCITALOPRAM OXALATE (10 MG) 10 MG TABLET PO SCH (09:02)
[2020-03-18] MEDS: MULTIVITAMINS,THERAGRAN 1 UDTAB TABLET PO SCH (09:02)
[2020-03-18] MEDS: GABAPENTIN 300 MG CAPSULE PO SCH (09:02)
[2020-03-18] MEDS: SENNOSIDES 8.6 MG TABLET PO SCH ×2 (09:02→17:45)
[2020-03-18] MEDS: LACTULOSE 10 G/15 ML UDC (PYXIS) PO SCH ×2 (09:02→17:45)
[2020-03-18] MEDS: ASPIRIN 81 MG TAB.CHEW PO SCH (09:03)
[2020-03-18] MEDS: CALCIUM ACETATE 667 MG TABLET PO SCH ×3 (09:03→17:46)
[2020-03-18] MEDS: CARBOXYMETHYLCELLULOSE SODIUM 1 EA TUBE OP SCH ×4 (09:04→21:30)
[2020-03-18] MEDS: INSULIN REGULAR, HUMAN 100 UNIT/ML 3 ML VIAL SQ PRN ×2 (12:18→22:45)
[2020-03-18 14:51] LABS: EOSINOPHILS % (AUTO) 4.1 % (0.0-6.0); HEMATOCRIT 32 % (33-45); HEMOGLOBIN 9.7 g/dL (11.5-14.8); LYMPHOCYTES # (AUTO) 0.9 /CMM (0.8-4.8); LYMPHOCYTES % (AUTO) 27.3 % (20.0-44.0); MEAN CORPUSCULAR HGB CONC 31 g/dl (31.0-36.0); MEAN CORPUSCULAR VOLUME 99 fL (82-100); MONOCYTES # (AUTO) 0.4 /CMM (0.1-1.30); MONOCYTES % (AUTO) 12.5 % (2.0-12.0); NEUTROPHILS # (AUTO) 1.9 /CMM (1.8-8.9); NEUTROPHILS % (AUTO) 55.1 % (43.0-81.0); PLATELET COUNT (AUTO) 101 /CMM (150-450); RED BLOOD CELL COUNT(AUTO) 3.21 MIL/uL (4.0-5.2); WHITE BLOOD COUNT (AUTO) 3.4 K/uL (4.3-11.0)
[2020-03-18 15:14] LABS: CREATININE 14.4 mg/dL (0.6-1.3)
[2020-03-18 15:17] LABS: POTASSIUM 6.3 mmol/L (3.5-5.1)
[2020-03-18 16:00] VITALS: BP 149/50
--- NOTE | 2020-03-18 19:15 | NUR ---
M/S RN NOTES PATIENT AWAKE IN BED, NO RESPIRATORY DISTRESS, NO C/O PAIN AT THIS TIME. SKIN WARM TO TOUCH, IV ACCESS SITE INTACT AND PATENT. PATIENT'S NEEDS ATTENDED, BED ON LOWEST LOCKED POSITION, CALL LIGHT WITHIN REACH. WILL ENDORSE TO ONCOMING NURSE.
[2020-03-18 20:00] VITALS: BP 115/77
--- NOTE | 2020-03-18 20:00 | NUR ---
MS RN OPENING NOTES PATIENT RECEIVED RESTING IN BED A/O X 1, SOMALI SPEAKING, BLIND. STABLE ON RA WITH BREATHING EVEN AND UNLABORED, NO SOB NOTED NO SIGNS OF ACUTE DISTRESS, NO COMPLAINTS OF PAIN OR DISCOMFORT. COLOSTOMY NOTED AND IN PLACE WITH CLEAR BROWN OUTPUT. IV LOCATED ON R FA#22 AND L AV FISTULA NOTED. SAFETY PRECAUTIONS PLACE WITH BED IN LOWEST POSITION, CALL LIGHT WITHIN REACH, BREAKS ON, SIDE RAILS UP. WILL CONTINUE TO MONITOR THROUGHOUT THE SHIFT.
[2020-03-18] MEDS: AMLODIPINE BESYLATE 5 MG TABLET PO SCH (21:30)
[2020-03-19] VITALS (19 sets, daily range): BP systolic 60–175; BP diastolic 32–75
--- NOTE | 2020-03-19 04:16 | NUR ---
MS RN NOTES PATIENT ABDOMEN DISTENDED, COLOSTOMY BAG SHOWING OUTPUT BROWN AND LIQUID FORMED. TENDER TO TOUCH. BOWEL SOUNDS PRESENT. PATIENT COMPLAINING OF MILD PAIN. WILL ENDORSE TO ONCOMING SHIFT.
[2020-03-19] MEDS: BLOOD SUGAR DIAGNOSTIC 1 EACH STRIP VI SCH ×4 (06:46→22:00)
--- NOTE | 2020-03-19 07:00 | NUR ---
MS RN NOTES PATIENT COMPLAINING OF PAIN 8/10 IN ABDOMEN. NORCO PRN ADMINISTERED.
--- NOTE | 2020-03-19 07:16 | NUR ---
MS RN CLOSING NOTES PATIENT RESTING IN BED A/O X 1, WALLISIAN SPEAKING, BLIND. STABLE ON RA WITH BREATHING EVEN AND UNLABORED, NO SOB NOTED NO SIGNS OF ACUTE DISTRESS, NO COMPLAINTS OF PAIN OR DISCOMFORT. COLOSTOMY NOTED AND IN PLACE WITH CLEAR BROWN OUTPUT- 300 CC THROUGOUT THE NIGHT. IV LOCATED ON R FA#22 AND L AV FISTULA NOTED. SAFETY PRECAUTIONS PLACE WITH BED IN LOWEST POSITION, CALL LIGHT WITHIN REACH, BREAKS ON, SIDE RAILS UP. ALL NEEDS ATTENDED TO, PATIENT KEPT CLEAN AND DRY. WILL ENDORSE TO ONCOMING SHIFT ABOUT MAYCOL.
[2020-03-19] MEDS: PANTOPRAZOLE 40 MG TABLET.DR PO SCH (07:30)
[2020-03-19 07:44] LABS: BASOPHILS # (AUTO) 0.1 /CMM (0.0-0.2); BASOPHILS % (AUTO) 0.8 % (0.0-2.0); EOSINOPHILS % (AUTO) 2.1 % (0.0-6.0); HEMATOCRIT 33 % (33-45); HEMOGLOBIN 10.5 g/dL (11.5-14.8); LYMPHOCYTES # (AUTO) 0.6 /CMM (0.8-4.8); LYMPHOCYTES % (AUTO) 8.9 % (20.0-44.0); MEAN CORPUSCULAR HGB CONC 32 g/dl (31.0-36.0); MEAN CORPUSCULAR VOLUME 97 fL (82-100); MONOCYTES # (AUTO) 0.5 /CMM (0.1-1.30); MONOCYTES % (AUTO) 6.5 % (2.0-12.0); NEUTROPHILS # (AUTO) 5.6 /CMM (1.8-8.9); NEUTROPHILS % (AUTO) 81.7 % (43.0-81.0); PLATELET COUNT (AUTO) 108 /CMM (150-450); RED BLOOD CELL COUNT(AUTO) 3.42 MIL/uL (4.0-5.2); WHITE BLOOD COUNT (AUTO) 6.9 K/uL (4.3-11.0)
[2020-03-19] MEDS: CALCIUM ACETATE 667 MG TABLET PO SCH ×3 (08:00→17:01)
[2020-03-19 08:04] LABS: CALCIUM, SERUM 8.1 mg/dL (8.5-10.1); PHOSPHORUS 7.1 mg/dL (2.5-4.9)
[2020-03-19 08:08] LABS: CREATININE 14.3 mg/dL (0.6-1.3); POTASSIUM 6.5 mmol/L (3.5-5.1)
[2020-03-19] MEDS: ASPIRIN 81 MG TAB.CHEW PO SCH (08:36)
[2020-03-19] MEDS: BENZTROPINE MESYLATE (1 MG) 1 MG TABLET PO SCH (08:36)
[2020-03-19] MEDS: LACTULOSE 10 G/15 ML UDC (PYXIS) PO SCH ×2 (08:36→16:54)
[2020-03-19] MEDS: MULTIVITAMINS,THERAGRAN 1 UDTAB TABLET PO SCH (08:37)
[2020-03-19] MEDS: GABAPENTIN 300 MG CAPSULE PO SCH (08:37)
[2020-03-19] MEDS: ACIDOPHILUS/BULGARICUS 1 EACH TAB.CHEW PO SCH (08:37)
[2020-03-19] MEDS: ESCITALOPRAM OXALATE (10 MG) 10 MG TABLET PO SCH (08:37)
[2020-03-19] MEDS: SENNOSIDES 8.6 MG TABLET PO SCH ×2 (08:37→16:54)
[2020-03-19] MEDS: HALOPERIDOL 1 MG TABLET PO SCH ×2 (08:37→21:00)
[2020-03-19] MEDS: FOLIC ACID 1 MG TABLET PO SCH (08:37)
[2020-03-19] MEDS: RIVAROXABAN 10 MG TABLET PO SCH (08:38)
[2020-03-19] MEDS: ASCORBIC ACID 500 MG TABLET PO SCH (08:38)
[2020-03-19] MEDS: CARBOXYMETHYLCELLULOSE SODIUM 1 EA TUBE OP SCH ×4 (08:46→21:00)
[2020-03-19] MEDS ORDERED: ONDANSETRON HCL/PF 4 MG/2 ML VIAL IV PRN (09:00)
[2020-03-19] MEDS ORDERED: IODIXANOL 150 ML IV ONE (09:01)
--- NOTE | 2020-03-19 09:15 | NUR ---
MS/RN Labs Morning labs reviewed: -K+ 6.5 -BUN 95 -Creat 14.3 Luciano Grajeda made aware.
--- NOTE | 2020-03-19 09:21 | NUR ---
MS/RN S/B Luciano Grajeda DNP Seen by Luciano Grajeda DNP - zofran to be changed to IVP, patient to remain NPO until fistulagram this afternoon. Zofran administered for nausea anfd vomiting, will monitor effectiveness.
[2020-03-19] MEDS ORDERED: SODIUM POLYSTYRENE SULFONATE 15 G/60 ML BOTTLE RC ONE (09:30)
--- NOTE | 2020-03-19 10:28 | NUR ---
MS/RN New orders Order given for patient to receive kayexelate 30gm. Medication to be given via stoma as NPO at this time. Unable to administer kayexelate due to resistance when attempting to insert tubing for medication. DNP made aware, will speak with Dr Melchor to find out if patient able to wait until after fistulagram to correct potassium level with HDX. Awaiting further instruction.
--- NOTE | 2020-03-19 11:41 | NUR ---
MS/RN Blood sugar Blood sugar 138, coverage not given as patient NPO.
--- NOTE | 2020-03-19 13:06 | NUR ---
MS/RN Fistulogram Patient off unit at this time for fistulogram.
[2020-03-19] MEDS ORDERED: IV NS 0.9% 500 ML IV ONE (13:19)
[2020-03-19] MEDS ORDERED: MIDAZOLAM HCL 2 MG/2ML VIAL ONE (13:19)
[2020-03-19] MEDS ORDERED: FENTANYL PF 100MCG/2ML AMPUL ONE (13:19)
[2020-03-19] MEDS ORDERED: IV SET PRIMARY 1 EA INFUS.SET MC ONE (13:19)
[2020-03-19] MEDS ORDERED: LIDOCAINE HCL/PF 1% 30 ML SDV ONE (13:20)
[2020-03-19] MEDS ORDERED: IODIXANOL 320MG/ML 50 ML IV ONE (13:59)
[2020-03-19] MEDS ORDERED: HEPARIN SODIUM, PORCINE 1,000 UNIT/ML VIAL ONE (14:27)
--- NOTE | 2020-03-19 15:43 | NUR ---
MS/RN Dr Melchor Patient back from bobcat driver/labor following unsuccessful fistulogram. Temporary left groin permcath inserted, line may be used straight away for emergency dialysis. Scheduled for surgery tomorrow for permcath insertion, revision of fistula or possible new fistula formation. Telephone consent obtained from daughter Maricarmen
--- NOTE | 2020-03-19 17:58 | NUR ---
MS/license registration examiner Dialysis treatments started at bedside at 1750. Nurse made word to access left groin catheter.
--- NOTE | 2020-03-19 18:02 | NUR ---
MS/RN Emesis Patient vomited three times during the shift. Unable to measure emesis as patient vomited all over the floor.
--- NOTE | 2020-03-19 18:47 | NUR ---
MS/RN End note HDX continues at bedside, stable at th is time. Will endorse to extracorporeal circulation specialist. -Patient to be NPO from midnight for surgery tomorrow, per Dr Melchor around 10am. Please call daughter and notify of exact surgery time as she would like to speak with patient prior to surgery.
--- NOTE | 2020-03-19 19:25 | NUR ---
MS RN NOTES CODE BLUE CALLED 1924; PATIENT NOT BREATHING CHEST COMPRESSIONS STARTED, CHIEF DATA OFFICER ATTACHED; ACCU CHECK 126MG/DL; ERIN RON AT BEDSIDE ALONG WITH NURSING FIELD TECHNICAL SUPPORT CONSULTANT RICHARD HINOJOSA, RN AND CHARGE NURSE IHSAN GUEVARA, BELEN; RT'S ALSO PRESENT AT BEDSIDE; PATIENT ASYSTOLE; CPR CONTINUED; EPINEPHRINE, BIBARB GIVEN IN INTERVALS (DOCUMENTED IN CHART MEDS GIVEN AND TIMES ADMINISTERED); PATIENT SUCTIONED AND INTUBATED AT 1940; HR 146; 1944 BP: 173/75 HR 115 SPO2: 96%; 1948 VTACH RHYTHM AND ABGS DRAWN AT 1949; 1953 VTACH TO SINUS TACH HR 90 WITH 1ST DEGREE AV BLOCK; EKG DONE AT BEDSIDE AT 1954; 1957 500 CC NS BOLUS STARTED AND ENDED 1999 1999 BP AT 86/52 HR: 95 2009 NURSING FIELD TECHNICAL SUPPORT CONSULTANT SPOKE WITH DAUGHTER, DAUGHTER WISHES FOR MOTHER TO STILL BE FULL CODE; CONTINUED WITH PROTOCOL; PER ERIN RON ORDER CBC, CMP, MAG AND PHOS; AWAITING LABS; CODE ENDED 2019 AND PATIENT TRANSFERRED PER ACLS PROTOCOLS TO ICU 251-1;
--- NOTE | 2020-03-19 19:30 | NUR ---
MS RN NOTES RECEIVED PATIENT RESTING IN BED, A/OX1; NO SOB NOTED; PATIENT RECEIVING HD WITH HD NURSE AT BEDSIDE; TEMPORARY AIME CATH FOR HD ONLY INTACT; PER AM SHIFT, PATIENT VOMITED X3 THROUGHOUT THEIR SHIFT; WILL MONITOR; SAFETY PRECAUTIONS IMPLEMENTED; BED LOCKED IN LOW POSITION; SIDE RAILS X3; WILL CONT TO MONITOR Addendum: 03/19/20 at 4552 by BRIANNA DIAZ RN TIME CHECK 1919*
[2020-03-19] MEDS ORDERED: NOREPINEPHRINE 32 MG in IV NS 0.9% 242 ML IV PRN (20:00)
[2020-03-19] MEDS ORDERED: SODIUM BICARBONATE SYR 50 MEQ/50 ML DISP.SYRIN ONE ×2 (20:04→20:06)
[2020-03-19] MEDS ORDERED: AMIODARONE 450 MG in IV D5W 250 ML IV PRN (20:30)
--- NOTE | 2020-03-19 20:30 | NUR ---
MS RN NOTES REPORT GIVEN TO BELEN WILEY FOR MAYCOL
--- NOTE | 2020-03-19 20:50 | NUR ---
RN NOTE PATIENT FROM 3W TRANSFERRED TO ICU FROM [facility] FOR CARDIO PULMONARY ARREST. RECEIVED ORALLY INTUBATED WITH ETT 7.5 AND 21 CM AT LIP ADJUSTED BY RT DR. RON ORDER WHILE AT BEDSIDE SHOWN FROM XRAY. PATIENT IS CRITICALLY ILL. PALE, COOL TO TOUCH. NON RESPONSIVE. MATTHEW. BKA PRESENT. S IV SITE ON RFA G 22. DR. RON AT BEDSIDE TO PLACED CENTRAL LINE AND A- LINE. LEVOPHED STARTED ORDERED TITRATED PER PROTOCOL. 20:45 PM - CARDIOVERSION @ 100 JOULES INITIATED DUE TO EPISODE OF VTACH @ 160'S PER DR. RON AND CONVERTED TO A- FIB. LOW BP NOTED , LEVOPHED STARTED. DR. RON AT BEDSIDE TO PLACED LINES.
--- NOTE | 2020-03-19 20:57 | NUR ---
ett with drawn 3cm to 21cm due to physician verbal order rn notified Addendum: 03/19/20 at 2057 by JAVIER ROSENBAUM RT Amended: Links added.
[2020-03-19] MEDS ORDERED: DEXAMETHASONE SOD PHOSPHATE 10 MG/ML VIAL IV ONE (21:00)
[2020-03-19] MEDS ORDERED: PROPOFOL 100 ML IV PRN (21:00)
[2020-03-19] MEDS ORDERED: FEE PK DOSING 1 MIN EA MC ONE (21:02)
[2020-03-19 21:14] LABS: BASOPHILS % (AUTO) 0.3 % (0.0-2.0); EOSINOPHILS % (AUTO) 0.1 % (0.0-6.0); HEMATOCRIT 33 % (33-45); HEMOGLOBIN 10.2 g/dL (11.5-14.8); LYMPHOCYTES # (AUTO) 1.3 /CMM (0.8-4.8); LYMPHOCYTES % (AUTO) 27.4 % (20.0-44.0); MEAN CORPUSCULAR HGB CONC 31 g/dl (31.0-36.0); MEAN CORPUSCULAR VOLUME 98 fL (82-100); MONOCYTES # (AUTO) 0.1 /CMM (0.1-1.30); MONOCYTES % (AUTO) 1.4 % (2.0-12.0); NEUTROPHILS # (AUTO) 3.4 /CMM (1.8-8.9); NEUTROPHILS % (AUTO) 70.8 % (43.0-81.0); PLATELET COUNT (AUTO) 136 /CMM (150-450); RED BLOOD CELL COUNT(AUTO) 3.37 MIL/uL (4.0-5.2); WHITE BLOOD COUNT (AUTO) 4.9 K/uL (4.3-11.0)
[2020-03-19 21:27] LABS: ALBUMIN 2.7 g/dL (3.4-5.0); ALKALINE PHOSPHATASE 107 U/L (46-116); ASPARTATE AMINOTRANSFERASE 159 U/L (15-37); BILIRUBIN,TOTAL 0.5 mg/dL (0.2-1.0); CALCIUM, SERUM 9.6 mg/dL (8.5-10.1); CARBON DIOXIDE 18 mmol/L (21-32); CHLORIDE 105 mmol/L (98-107); GLUCOSE 81 mg/dL (74-106); MAGNESIUM 2.6 mg/dL (1.8-2.4); PHOSPHORUS 7.6 mg/dL (2.5-4.9); POTASSIUM 4.8 mmol/L (3.5-5.1); SODIUM SERUM 151 mmol/L (136-145); TOTAL PROTEIN, SERUM 7.3 g/dL (6.4-8.2); UREA NITROGEN, BLOOD 71 mg/dL (7-18)
[2020-03-19] MEDS ORDERED: PHENYLEPHRINE 100 MG in IV NS 0.9% 240 ML IV PRN (21:30)
[2020-03-19] MEDS ORDERED: PHENYLEPHRINE 10 MG/ML VIAL ONE (21:44)
--- NOTE | 2020-03-19 21:52 | NUR ---
RN NOTES RECEIVED A CALL FROM LAB SPOKE WITH DEYSI REPORTED TROPONIN 1.173 [address]2 [address] RON WITH THE PATIENT PLACING ART LINE AT BEDSIDE. INFORMED REGARDING CRITICAL VALUE.
[2020-03-19] MEDS ORDERED: VANCOMYCIN 1 GM in IV D5W 250 ML IV SCH (22:00)
[2020-03-19] MEDS ORDERED: AMIODARONE 900 MG in IV D5W 482 ML IV PRN (22:00)
[2020-03-19] MEDS: AMLODIPINE BESYLATE 5 MG TABLET PO SCH (22:00)
[2020-03-19 22:05] LABS: ALANINE AMINOTRANSFERASE 127 U/L (12-78)
[2020-03-19 22:09] LABS: CREATININE 10.9 mg/dL (0.6-1.3)
[2020-03-19] MEDS: PIPERACILLIN /TAZOBACTAM 2.25 G in IV D5W 50 ML IV SCH (22:41)
--- NOTE | 2020-03-19 23:37 | NUR ---
RN NOTES BS CHECKED AT THIS TIME WAS 37MG/DL INITIALLY. REPEATED BS = 57 MG/DL D50% ADMNISTERED ORDERED AND WILL REPEAT AFTER 15 MINS.
[2020-03-19 23:43] LABS: BILIRUBIN,DIRECT 0.3 mg/dL (0.0-0.2)
--- NOTE | 2020-03-19 23:45 | NUR ---
RN NOTE OSWALD DAUGHTER CALLED AND INFORMED STAFF THAT THEY WILL COME TOMORROW TO SEE THEIR MOM. LEFT TELEPHONE NO. [phone] TO CALL ANYTIME FOR ANY CHANGES
[2020-03-19 23:46] LABS: ABG BASE EXCESS -22.5 mmol/L; ABG PCO2 38.2 mmHg (35.0-45.0); ABG PH 6.965 (7.350-7.450); ABG PO2 107.3 mmHg (75.0-100.0); COHb 0.7 % (0.5-1.5); MetHb 0.2 % (0.0-1.5); O2Hb 93.2 % (94.0-97.0); PEEP,BG 5 cm H2O; SITE, ABG A-Line; VENT MODE, BG ac 26 500 80% +5; VT, ABG 500 mL
[2020-03-19 23:50] LABS: ABG BASE EXCESS -11.8 mmol/L; ABG OXYGEN SATURATION 97.7 % (92.0-98.5); ABG PCO2 66.2 mmHg (35.0-45.0); ABG PH 7.068 (7.350-7.450); ABG PO2 159.4 mmHg (75.0-100.0); AaDO2 487.4 mmHg; COHb 0.9 % (0.5-1.5); MetHb 0.6 % (0.0-1.5); O2Hb 96.2 % (94.0-97.0); SITE, ABG Left Femoral; VENT MODE, BG ambu bag post cpr
--- NOTE | 2020-03-19 23:56 | NUR ---
RN NOTES PH - 6.96 CO2 -38.2 PO2 -107.3 HCO3 - 8.5 ABG RESULT REPORTED TO , PER DNP HE WILL PUT THE ORDER
[2020-03-20] VITALS (38 sets, daily range): BP systolic 47–198; BP diastolic 19–42
[2020-03-20] MEDS ORDERED: DEXTROSE 50%-WATER 50 ML DISP.SYRIN IVP ONE
--- NOTE | 2020-03-20 00:07 | NUR ---
RN NOTES BS 174 MG/DL REPEATED, D50% EFFECTIVE. WILL CONTINUE TO MONITOR.
--- NOTE | 2020-03-20 00:20 | NUR ---
RN NOTES LACTIC ACID REPORTED 20.8. DR. RON MADE AWARE.
[2020-03-20] MEDS ORDERED: Sodium Bicarbonate 100 MEQ in IV D5/0.45 NACL 1,000 ML IV PRN (00:30)
--- NOTE | 2020-03-20 00:39 | NUR ---
RN NOTES BICARB 100 MEQ IVP ADMINISTERED ORDERED.
[2020-03-20] MEDS ORDERED: AMIODARONE 150 MG/3 ML VIAL IV ONE ×2 (01:33→09:14)
[2020-03-20 04:46] LABS: CALCIUM, SERUM 8.3 mg/dL (8.5-10.1); POTASSIUM 4.1 mmol/L (3.5-5.1)
[2020-03-20 04:50] LABS: CREATININE 10.8 mg/dL (0.6-1.3)
[2020-03-20 05:48] LABS: BASOPHILS % (AUTO) 0.1 % (0.0-2.0); HEMATOCRIT 33 % (33-45); HEMOGLOBIN 9.8 g/dL (11.5-14.8); LYMPHOCYTES # (AUTO) 0.2 /CMM (0.8-4.8); LYMPHOCYTES % (AUTO) 30.5 % (20.0-44.0); MEAN CORPUSCULAR HGB CONC 30 g/dl (31.0-36.0); MEAN CORPUSCULAR VOLUME 102 fL (82-100); MONOCYTES # (AUTO) 0.1 /CMM (0.1-1.30); MONOCYTES % (AUTO) 10.1 % (2.0-12.0); NEUTROPHILS # (AUTO) 0.3 /CMM (1.8-8.9); NEUTROPHILS % (AUTO) 48.3 % (43.0-81.0); PLATELET COUNT (AUTO) 113 /CMM (150-450); RED BLOOD CELL COUNT(AUTO) 3.28 MIL/uL (4.0-5.2)
[2020-03-20 05:53] LABS: WHITE BLOOD COUNT (AUTO) 0.6 K/uL (4.3-11.0)
[2020-03-20] MEDS: PIPERACILLIN /TAZOBACTAM 2.25 G in IV D5W 50 ML IV SCH (06:06)
[2020-03-20 06:53] LABS: NEUTROPHILS % (MANUAL) 46 (42-76)
[2020-03-20 06:54] LABS: LYMPHOCYTES % (MANUAL) 44 % (16-48); MONOCYTES % (MANUAL) 10 % (0-11.0)
[2020-03-20] MEDS: PANTOPRAZOLE 40 MG TABLET.DR PO SCH (07:30)
[2020-03-20] MEDS ORDERED: AMIODARONE 450 MG in IV D5W 241 ML IV PRN (07:30)
--- NOTE | 2020-03-20 07:30 | NUR ---
FINANCIAL AUDITOR INITIAL NOTE RECEIVED PATIENT NON-RESPONSIVE, RESPONDS TO PAINFUL STIMULI. NO DISTRESS NOTED. ON VENT SETTINGS AC 26, TV 500, FIO2 80%, PEE5. SKIN WARM AND DRY TO TOUCH. ON TELE MONITOR AFIB/SR. PATIENT WITH LEFT FEM TLC ON BICARB DRIP AT 100ML/HR , LEVO AT 0.6MCG/KG/MIN, AMNIO 0.5. RIGHT FEM HD CATH WITH VERITO CONNECTED. NOTED WITH LEFT QUADRANT COLOSTOMY BAG, AREA BULGING, FIRM TO TOUCH. PER REPORT PATIENT CAME WITH IT PER REPORT GIVEN TO HER. PATIENT IN CRITICAL CONDITION, PER REPORT PATIENTS FAMILY WILL COME AND SEE THE PATIENT THIS MORNING. HOB ELEVATED. SIDE RAILS UP AND LOCKED. BED KEPT AT LOWEST POSITION. WILL CONTINUE OT MONITOR.
--- NOTE | 2020-03-20 07:30 | NUR ---
RN NOTES PATIENT IS HEMODYNAMICALLY UNSTABLE. REMAINED INTUBATED VENT SETTING REMAINED THE SAME SETTING. SATURATION >92%. AFIB ON TELE MONITOR. AMIODARONE DRIP ONGOING @ 0.5 LEVOPHED @ 0.6 MCG/KG/MIN AND BICARB @ 100 ML/HR RUNNING WELL. IV SITE INTACT AND PATENT. LEFT FEMORAL IV DRESSING CHANGE SOILED WITH BLOOD. AFEBRILE. VSS CONTROLLED WITH PRESSOR, ART LINE CALIBRATED AND LEVELED. ALL IV ATB ADMINISTERED ORDERED AND TOLERATED WELL. KEPT PT CLEAN AND DRY. ENDORSED CONTINUITY OF CARE TO AM SHIFT AND ENDORSED ABOUT THE DAUGHTERS THAT WILL COME TODAY TO SEE THE PATIENT AND TO CALL THE GIVEN PHONE NUMBER IF THERE IS ANY CHANGES.
[2020-03-20 07:47] LABS: ABG BASE EXCESS -19.4 mmol/L; ABG OXYGEN SATURATION 39.8 % (92.0-98.5); ABG PCO2 49.6 mmHg (35.0-45.0); ABG PH 6.984 (7.350-7.450); ABG PO2 35.6 mmHg (75.0-100.0); AaDO2 482.7 mmHg; COHb 0.4 % (0.5-1.5); MetHb 0.3 % (0.0-1.5); O2Hb 39.5 % (94.0-97.0); SITE, ABG A-Line; VENT MODE, BG AC 26 500 +5 80%
[2020-03-20] MEDS: LACTULOSE 10 G/15 ML UDC (PYXIS) PO SCH (07:59)
[2020-03-20] MEDS: CALCIUM ACETATE 667 MG TABLET PO SCH (07:59)
[2020-03-20] MEDS: ASPIRIN 81 MG TAB.CHEW PO SCH (07:59)
[2020-03-20] MEDS: ACIDOPHILUS/BULGARICUS 1 EACH TAB.CHEW PO SCH (08:00)
[2020-03-20] MEDS: MULTIVITAMINS,THERAGRAN 1 UDTAB TABLET PO SCH (08:00)
[2020-03-20] MEDS: BENZTROPINE MESYLATE (1 MG) 1 MG TABLET PO SCH (08:00)
[2020-03-20] MEDS: HALOPERIDOL 1 MG TABLET PO SCH (08:00)
[2020-03-20] MEDS: ASCORBIC ACID 500 MG TABLET PO SCH (08:00)
[2020-03-20] MEDS: SENNOSIDES 8.6 MG TABLET PO SCH (08:00)
[2020-03-20] MEDS: FOLIC ACID 1 MG TABLET PO SCH (08:00)
[2020-03-20] MEDS: GABAPENTIN 300 MG CAPSULE PO SCH (08:00)
[2020-03-20] MEDS: ESCITALOPRAM OXALATE (10 MG) 10 MG TABLET PO SCH (08:00)
[2020-03-20] MEDS: BLOOD SUGAR DIAGNOSTIC 1 EACH STRIP VI SCH (08:13)
[2020-03-20] MEDS ORDERED: NOREPINEPHRINE 32 MG in IV NS 0.9% 218 ML IV PRN (08:36)
[2020-03-20 08:45] LABS: ABG BASE EXCESS -18.4 mmol/L; ABG PCO2 38.7 mmHg (35.0-45.0); ABG PH 7.066 (7.350-7.450); ABG PO2 79.4 mmHg (75.0-100.0); AaDO2 594.9 mmHg; COHb 0.5 % (0.5-1.5); MetHb 0.3 % (0.0-1.5); O2Hb 88.3 % (94.0-97.0); SITE, ABG Right Brachial; VENT MODE, BG AC 26 500 +5 100%
[2020-03-20] MEDS: CARBOXYMETHYLCELLULOSE SODIUM 1 EA TUBE OP SCH (09:00)
[2020-03-20] MEDS ORDERED: HYDROCORTISONE SOD SUCCINATE 100 MG/2 ML VIAL IV SCH (09:00)
[2020-03-20] MEDS: RIVAROXABAN 10 MG TABLET PO SCH (09:00)
[2020-03-20] MEDS ORDERED: VANCOMYCIN 500 MG in IV D5W 100 ML IV PRN (09:00)
[2020-03-20] MEDS ORDERED: NOREPINEPHRINE 4 MG/4 ML AMPUL IV ONE (09:14)
[2020-03-20] MEDS ORDERED: CALCIUM CHLORIDE 1,000 MG/10 ML DISP.SYRIN IV ONE (09:14)
[2020-03-20] MEDS ORDERED: SODIUM BICARBONATE SYR 50 MEQ/50 ML DISP.SYRIN IV ONE ×3 (09:14→09:30)
[2020-03-20] MEDS ORDERED: EPINEPHRINE (1:10,000) SYRINGE 1 MG/10 ML DISP.SYRIN IVP ONE (09:14)
--- NOTE | 2020-03-20 09:22 | NUR ---
CONTRACT PROGRAMMER NOTE SEEN AND EXAMINED BY DR SCHMID RELAYED PATIENT DIASTOLIC HAS BEEN IN THE 20'S AND MAP HAS BEEN LESS THAN 65, PER MD OK TO CHANGE PRESSOR PARAMETERS MAP >65 AND SBP >90, WITH ORDERS TO CHANGE LEVO TO NEOSYNEPHRINE. SEEN AND EXAMINED BY DR GARDNER, WITH VERBAL ORDERS TO GIVE 2AMPS OF BICARB PUSH.
--- NOTE | 2020-03-20 09:29 | NUR ---
WOUND CARE CONSULT: PT UNSTABLE TO BE TURNED FOR SKIN ASSESSMENT AT THIS TIME. SPOKE TO RN AND DISCUSSED SKIN PROTECTION. CURRENT MACY SCORE IS 10. FIRST STEP LOW AIRLOSS MATTRESS ORDERED. WILL SEE PRN. REYES IN AGREEMENT WITH PLAN OF CARE. Addendum: 03/20/20 at 0935 by EDWARDO LOPEZ WNDNU PER FURTHER INVESTIGATION, PT NOTED TO HAVE SACRAL SCARRING WHICH EXTENDS TO BUTTOCKS BUT PT TOO UNSTABLE FOR PHOTO AT THIS TIME PER RN. RECOMMENDATIONS MADE FOR SKIN PROTECTION.
[2020-03-20] MEDS ORDERED: PHENYLEPHRINE 100 MG in IV NS 0.9% 240 ML IV PRN (09:30)
--- NOTE | 2020-03-20 09:45 | NUR ---
MERCHANDISE PLANNING MANAGER NOTE DAUGHTER OSWALD AT BEDSIDE, CHARGE NURSE AT BEDSIDE SPEAKING WITH DAUGHTER. PER DAUGHTER OK TO CHANGE CODE STATUS TO DNR/DNI.
[2020-03-20] MEDS ORDERED: NOREPINEPHRINE 32 MG in IV NS 0.9% 242 ML IV PRN (10:15)
--- NOTE | 2020-03-20 11:27 | NUR ---
1048 DISTRICT RANGER INFORMED OF PATIENT PASSING [address] CALL BACK FROM DR SCHMID INFORMED OF PATIENT PASSING.
--- NOTE | 2020-03-20 13:19 | NUR ---
WEDDING COORDINATOR NOTE INFORMED FAMILY POSTMORTEM CARE HAS TO BE DONE. PER DAUGHTER OSWALD SISTER KENA IS NEAR BY AND WOULD LIKE TO SAY GOOD BYES CONFIRMED WITH CHARGE, LAST GOOD BYES CAN BE DONE. PER OSWALD THEY WILL DISCUSS MORTUARY.
--- NOTE | 2020-03-20 13:22 | NUR ---
[address] GARDNER PATIENT BP DECLINING QUICKLY IF SECOND PRESSOR CAN BE GIVEN, VERBAL ORDER RECEIVED TO GIVE LEVOPHED. NOTED. WILL HANG LEVO FROM FRIDGE. 1020 PATIENT HR STARTED DECLINING WELL BLOOD PRESSURE 1028 NO PULSES PALPABLE, NO BP APPRECIATED, LEVOPHED WAS NOT STARTED. DAUGHTER AND SON AT BEDSIDE. 1100 PER OSWALD SISTER KENA IS DRIVING FROM [place] AND WOULD LIKE TO SEE HER MOTHER ONE LAST TIME, CHARGE NURSE INFORMED AND WE WILL WAIT FOR SISTER, PER OSWALD PATIENT HAS NO MORTUARY AND THEY WILL DISCUSS ON MORTUARY.
--- NOTE | 2020-03-20 14:17 | NUR ---
COMPUTER GRAPHIC DESIGNER NOTE POSTMORTEM CARE WAS DONE, CHILDREN OF PATIENT AT BEDSIDE. GAVE KENA IP ATTORNEY PHONE NUMBER TO CALL ONCE MORTUARY IS DETERMINED.
--- NOTE | 2020-03-20 15:01 | NUR ---
PHOTOGRAMMETRIC COMPILATION SPECIALIST NOTE PATIENT BROUGHT DOWN TO [facility] BY SECURITY
== END 2020-03-20 16:55 | disposition expired | DRG 182 ==
LOC: ER 15:20 → MEDSG1 17:43 → TELE1 20:04 → TELE 03-15 09:52 → MED 03-16 09:54 → ICU 03-19 20:24
PROVIDERS: ADMIT Nurse Practitioner Acute Care; ATTEND Family Medicine
PROC: 5A1D70Z Performance of Urinary Filtration, Intermittent, Less than 6 Hours Per Day (ICD-10-PCS; 2020-03-14)
PROC: 5A2204Z Restoration of Cardiac Rhythm, Single (ICD-10-PCS; principal; 2020-03-19)
PROC: 05HY33Z Insertion of Infusion Device into Upper Vein, Percutaneous Approach (ICD-10-PCS; principal; 2020-03-19)
PROC: B30JYZZ Plain Radiography of Left Upper Extremity Arteries using Other Contrast (ICD-10-PCS; principal; 2020-03-19)
PROC: 037Y3ZZ Dilation of Upper Artery, Percutaneous Approach (ICD-10-PCS; principal; 2020-03-19)
PROC: 057Y3ZZ Dilation of Upper Vein, Percutaneous Approach (ICD-10-PCS; principal; 2020-03-19)
PROC: 5A12012 Performance of Cardiac Output, Single, Manual (ICD-10-PCS; principal; 2020-03-19)
PROC: 04HY33Z Insertion of Infusion Device into Lower Artery, Percutaneous Approach (ICD-10-PCS; principal; 2020-03-19)
PROC: 0BH17EZ Insertion of Endotracheal Airway into Trachea, Via Natural or Artificial Opening (ICD-10-PCS; principal; 2020-03-19)
PROC: 5A1935Z Respiratory Ventilation, Less than 24 Consecutive Hours (ICD-10-PCS; principal; 2020-03-19)
DX: T82.868A Thrombosis due to vascular prosthetic devices, implants and grafts, initial encounter (principal); R57.9 Shock, unspecified; J69.0 Pneumonitis due to inhalation of food and vomit; J96.01 Acute respiratory failure with hypoxia; J96.02 Acute respiratory failure with hypercapnia; I47.2 Ventricular tachycardia; G93.41 Metabolic encephalopathy; I13.2 Hypertensive heart and chronic kidney disease with heart failure and with stage 5 chronic kidney disease, or end stage renal disease; D61.818 Other pancytopenia; E87.2 Acidosis; E11.22 Type 2 diabetes mellitus with diabetic chronic kidney disease; D68.69 Other thrombophilia; E87.4 Mixed disorder of acid-base balance; E11.51 Type 2 diabetes mellitus with diabetic peripheral angiopathy without gangrene; E87.5 Hyperkalemia; N18.6 End stage renal disease; Y71.2 Prosthetic and other implants, materials and accessory cardiovascular devices associated with adverse incidents; Z99.2 Dependence on renal dialysis; F32.9 Major depressive disorder, single episode, unspecified; D63.8 Anemia in other chronic diseases classified elsewhere; E83.39 Other disorders of phosphorus metabolism; Z66 Do not resuscitate; I48.91 Unspecified atrial fibrillation; E11.40 Type 2 diabetes mellitus with diabetic neuropathy, unspecified; N25.0 Renal osteodystrophy; Z89.611 Acquired absence of right leg above knee; Z89.612 Acquired absence of left leg above knee; Z79.01 Long term (current) use of anticoagulants; I50.9 Heart failure, unspecified; Y83.8 Other surgical procedures as the cause of abnormal reaction of the patient, or of later complication, without mention of misadventure at the time of the procedure; Y92.89 Other specified places as the place of occurrence of the external cause
CPT/HCPCS: 36005; 36415; 36600; 36901; 37248; 71045-TC; 80048-TC; 80053-TC; 82248-TC; 82533; 82803-TC; 82962-TC; 83540-TC; 83605-TC; 83735-TC; 84100-TC; 84443-TC; 84484-TC; 85025-TC; 85730-TC; 86850-TC; 87070-TC; 87081-TC; 90935-TC; 92950-TC; 94002-TC; 94003-TC; 99082-TC; C1725; C1750; C1751; C1769; C1894; G0378; J0171; J0282; J0515; J1100; J1630; J1644; J1720; J1815; J2250; J2370; J2405; J2543; J3010; J3370; J3490; J7040; J7050; J7060; Q9967; U0003-CS